=== PATIENT | male | born 1985 | race Caucasian/White ===

== ENCOUNTER 2018-05-10 19:33 | Inpatient (IN) | payer MEDICAID, OTHER ==
[~2018-05-10] VITALS: Ht 182.9 cm; Wt 92.0 kg
[2018-05-10] MEDS ORDERED: GABA-531 PO (20:59)
[2018-05-10] MEDS ORDERED: SERT50TA12 PO (20:59)
[2018-05-10] MEDS ORDERED: DIVA500T52 PO (20:59)
[2018-05-10] MEDS ORDERED: METH10 PO (20:59)
[2018-05-10] MEDS ORDERED: QUET25TA PO (20:59)
[2018-05-10] MEDS ORDERED: QUET200T PO (20:59)
[2018-05-10 21:07] LABS: ANION GAP 8 mmol/L (8-16); CALCIUM, TOTAL 9.1 mg/dL (8.8-10.5); CARBON DIOXIDE 30 mmol/L (22-29); CHLORIDE 106 mmol/L (98-107); CREATININE 1.12 mg/dL (0.60-1.30); GLOMERULAR FILTR. RATE CALC > 60 mL/min (>60); GLUCOSE,RANDOM 86 mg/dL (70-110); POTASSIUM 4.3 mmol/L (3.5-5.1); SODIUM SERUM 144 mmol/L (136-145); UREA NITROGEN, BLOOD 26 mg/dL (7-18)
[2018-05-10 21:13] LABS: ALANINE AMINOTRANSFERASE 26 U/L (12-78); ALBUMIN 3.9 g/dL (3.4-5.0); ALKALINE PHOSPHATASE 100 U/L (46-116); ASPARTATE AMINOTRANSFERASE 37 U/L (15-37); BILIRUBIN,TOTAL 0.4 mg/dL (0.1-1.0); TOTAL PROTEIN, SERUM 7.7 g/dL (6.4-8.2)
[2018-05-10 21:35] LABS: BASOPHILS % (AUTO) 0.6 % (0.0-2.0); EOSINOPHILS % (AUTO) 2.6 % (1.0-6.0); HEMATOCRIT 42.5 % (41-53); HEMOGLOBIN 14.6 g/dL (13.5-17.5); LYMPHOCYTES # (AUTO) 3.2 K/uL (1.0-4.8); LYMPHOCYTES % (AUTO) 37.6 % (22.0-44.0); MEAN CORPUSCULAR HGB CONC 34.4 G/dL (31.0-37.0); MEAN CORPUSCULAR VOLUME 96 fL (80-100); MONOCYTES # (AUTO) 0.9 K/uL (0.1-1.0); MONOCYTES % (AUTO) 10.4 % (2.0-9.0); NEUTROPHILS # (AUTO) 4.1 K/uL (1.8-7.7); NEUTROPHILS % (AUTO) 48.8 % (40.0-70.0); PLATELET COUNT (AUTO) 222 K/uL (150-450); RED BLOOD CELL COUNT(AUTO) 4.43 MIL/uL (4.50-5.90); RED CELL DISTRIBUTION WIDTH 13.2 % (11.5-14.5)
[2018-05-10] MEDS ORDERED: ZOLPIDEM TARTRATE 10 MG TABLET PO PRN (22:45)
[2018-05-10] MEDS ORDERED: HALOPERIDOL 5 MG TABLET PO PRN (22:45)
[2018-05-10 22:53] LABS: AMPHET/METH SCREEN,URINE POSITIVE (NEGATIVE); BARBITURATE SCREEN, URINE NEGATIVE (NEGATIVE); BENZODIAZEPINES SCREEN,URINE POSITIVE (NEGATIVE); CANNABINOID SCREEN,URINE NEGATIVE (NEGATIVE); COCAINE SCREEN,URINE NEGATIVE (NEGATIVE); METHADONE SCREEN, URINE POSITIVE (NEGATIVE); OPIATE SCREEN,URINE POSITIVE (NEGATIVE)
[2018-05-10 22:54] LABS: PHENCYCLIDINE SCREEN,URINE NEGATIVE (NEGATIVE)
[2018-05-11] VITALS (15 sets, daily range): BP systolic 100–120; BP diastolic 60–82
[2018-05-11] MEDS: LORazepam 2 MG TABLET PO PRN ×2 (01:41→09:35)
[2018-05-11 08:19] LABS: HEMOGLOBIN A1C 5.2 % (4.5-6.2)
[2018-05-11 08:37] LABS: CHOL/HDL RATIO 4.2 (4.2-7.3); FREE T4 (FREE THYROXINE) 0.73 ng/dL (0.76-1.46)
[2018-05-11 08:38] LABS: THYROID STIMULATING HORMONE 1.97 uIU/mL (0.36-3.74)
[2018-05-11] MEDS: NICOTINE 14 MG/24 HOUR PATCH TD SCH (09:58)
[2018-05-11] MEDS: DIVALPROEX SODIUM 500 MG ER TABLET PO SCH (09:58)
[2018-05-11] MEDS: METHADONE HCL 10 MG TABLET PO SCH (13:07)
[2018-05-11] MEDS ORDERED: MAG HYDROX/AL HYDROX/SIMETH ES 30 ML SUSPENSION UDCUP PO PRN (14:45)
[2018-05-11] MEDS ORDERED: TUBERCULIN, PURIFIED PROTEIN DERIVATIVE 5 TU/0.1 ML SYG ID ONE (14:45)
[2018-05-11] MEDS ORDERED: MAGNESIUM HYDROXIDE SUSPENSION 30 ML UDCUP PO PRN (14:45)
[2018-05-11] MEDS ORDERED: ACETAMINOPHEN 325 MG TABLET PO PRN (14:45)
[2018-05-11] MEDS ORDERED: LOPERAMIDE HCL 2 MG CAPSULE PO PRN ×2 (14:45)
[2018-05-11] MEDS ORDERED: HydrOXYzine PAMOATE 50 MG CAPSULE PO PRN (14:45)
[2018-05-11] MEDS ORDERED: GuaiFENesin/D-METHORPHAN [SUGAR-FREE] 200-20MG/10 ML SYRUP UDCUP PO PRN (14:45)
[2018-05-11] MEDS ORDERED: OLANZapine 5 MG RAPDIS TABLET PO PRN (14:45)
[2018-05-11] MEDS ORDERED: DIAZEPAM 10 MG TABLET PO PRN (14:45)
[2018-05-11] MEDS ORDERED: PROMETHAZINE HCL 25 MG TABLET PO PRN (14:45)
[2018-05-11] MEDS ORDERED: CYANOCOBALAMIN 1,000 MCG/ML VIAL IM ONE (14:45)
[2018-05-11] MEDS ORDERED: DIAZEPAM 10 MG TABLET PO ONE (15:15)
[2018-05-11] MEDS: ACAMPROSATE CALCIUM 333 MG DR TABLET PO SCH (16:10)
[2018-05-11] MEDS: THIAMINE HCL 100 MG TABLET PO SCH (16:11)
[2018-05-11] MEDS: OLANZapine 5 MG RAPDIS TABLET PO SCH (20:34)
[2018-05-12] VITALS (7 sets, daily range): BP systolic 104–120; BP diastolic 63–76
[2018-05-12] MEDS ORDERED: DIAZEPAM 10 MG TABLET PO PRN (07:00)
[2018-05-12] MEDS: FOLIC ACID 1 MG TABLET PO SCH (09:23)
[2018-05-12] MEDS: DIVALPROEX SODIUM 500 MG ER TABLET PO SCH (09:23)
[2018-05-12] MEDS: MULTIVITAMINS WITH MINERALS, THERAPEUTIC TABLET PO SCH (09:23)
[2018-05-12] MEDS: ACAMPROSATE CALCIUM 333 MG DR TABLET PO SCH ×3 (09:23→16:59)
[2018-05-12] MEDS: THIAMINE HCL 100 MG TABLET PO SCH ×2 (09:23→16:59)
[2018-05-12] MEDS: METHADONE HCL 10 MG TABLET PO SCH (09:24)
[2018-05-12] MEDS: NICOTINE 14 MG/24 HOUR PATCH TD SCH (09:24)
[2018-05-12] MEDS: DIAZEPAM 10 MG TABLET PO SCH ×4 (09:25→20:27)
[2018-05-12] MEDS: OLANZapine 5 MG RAPDIS TABLET PO SCH (20:27)
[2018-05-13 05:40] VITALS: BP 104/60
[2018-05-13 08:35] VITALS: BP 116/77
[2018-05-13 08:36] VITALS: BP 116/77
[2018-05-13] MEDS: THIAMINE HCL 100 MG TABLET PO SCH (09:09)
[2018-05-13] MEDS: MULTIVITAMINS WITH MINERALS, THERAPEUTIC TABLET PO SCH (09:09)
[2018-05-13] MEDS: DIAZEPAM 10 MG TABLET PO SCH ×2 (09:09→12:35)
[2018-05-13] MEDS: FOLIC ACID 1 MG TABLET PO SCH (09:09)
[2018-05-13] MEDS: DIVALPROEX SODIUM 500 MG ER TABLET PO SCH (09:09)
[2018-05-13] MEDS: METHADONE HCL 10 MG TABLET PO SCH (09:09)
[2018-05-13] MEDS: ACAMPROSATE CALCIUM 333 MG DR TABLET PO SCH ×2 (09:10→12:35)
[2018-05-13] MEDS: NICOTINE 14 MG/24 HOUR PATCH TD SCH (09:10)
[2018-05-13] MEDS ORDERED: OLAN5TAB30 PO (15:15)
[2018-05-13] MEDS ORDERED: ACAM333T7 PO ×2 (15:15→15:20)
[2018-05-13] MEDS ORDERED: DIVA500T52 PO (15:15)
[2018-05-13] MEDS ORDERED: OLAN5TAB40 PO (15:20)
[2018-05-14] MEDS ORDERED: DIAZEPAM 5 MG TABLET PO PRN (07:00)
[2018-05-14] MEDS ORDERED: DIAZEPAM 5 MG TABLET PO SCH (09:00)
[2018-05-15] MEDS ORDERED: DIAZEPAM 5 MG TABLET PO PRN (07:00)
== END 2018-05-13 16:05 | disposition home or self-care (01) | DRG 753 ==
LOC: EMS 19:34 → B2S 22:00
PROVIDERS: ADMIT Psychiatry & Neurology Psychiatry; ATTEND Psychiatry & Neurology Psychiatry
DX: F31.60 Bipolar disorder, current episode mixed, unspecified (principal); F20.0 Paranoid schizophrenia; R56.9 Unspecified convulsions; R45.851 Suicidal ideations; F17.200 Nicotine dependence, unspecified, uncomplicated; F15.90 Other stimulant use, unspecified, uncomplicated; F11.90 Opioid use, unspecified, uncomplicated; F10.20 Alcohol dependence, uncomplicated; E78.5 Hyperlipidemia, unspecified; B19.20 Unspecified viral hepatitis C without hepatic coma; Z79.899 Other long term (current) drug therapy; Z88.1 Allergy status to other antibiotic agents
CPT/HCPCS: 83036; 84439; 84443; 87081; 99285; 99406; G0480; J3420

== ENCOUNTER 2018-09-03 15:35 | Inpatient (IN) | payer MEDICAID, OTHER ==
[~2018-09-03] VITALS: Ht 182.9 cm; Wt 105.3 kg
[~2018-09-03 15:35] MED LIST: ACAM333T7 PO; DIVA500T52 PO; OLAN5TAB30 PO; OLAN5TAB40 PO
[2018-09-03] MEDS ORDERED: METH10 PO (17:01)
[2018-09-03] MEDS ORDERED: QUET200T PO (17:01)
[2018-09-03 17:15] LABS: BASOPHILS % (AUTO) 0.8 % (0.0-2.0); HEMATOCRIT 40.8 % (41-53); HEMOGLOBIN 14.1 g/dL (13.5-17.5); LYMPHOCYTES # (AUTO) 2.9 K/uL (1.0-4.8); LYMPHOCYTES % (AUTO) 36.2 % (22.0-44.0); MEAN CORPUSCULAR HGB CONC 34.5 G/dL (31.0-37.0); MEAN CORPUSCULAR VOLUME 96 fL (80-100); MONOCYTES # (AUTO) 0.5 K/uL (0.1-1.0); MONOCYTES % (AUTO) 6.9 % (2.0-9.0); NEUTROPHILS # (AUTO) 4.4 K/uL (1.8-7.7); NEUTROPHILS % (AUTO) 55.1 % (40.0-70.0); PLATELET COUNT (AUTO) 255 K/uL (150-450); RED BLOOD CELL COUNT(AUTO) 4.27 MIL/uL (4.50-5.90)
[2018-09-03 17:47] LABS: ANION GAP 7 mmol/L (8-16); CALCIUM, TOTAL 9.4 mg/dL (8.8-10.5); CARBON DIOXIDE 28 mmol/L (22-29); CHLORIDE 102 mmol/L (98-107); GLOMERULAR FILTR. RATE CALC > 60 mL/min (>60); GLUCOSE,RANDOM 83 mg/dL (70-110); POTASSIUM 4.2 mmol/L (3.5-5.1); SODIUM SERUM 137 mmol/L (136-145); UREA NITROGEN, BLOOD 16 mg/dL (7-18)
[2018-09-03 17:53] LABS: ALANINE AMINOTRANSFERASE 25 U/L (12-78); ALKALINE PHOSPHATASE 84 U/L (46-116); ASPARTATE AMINOTRANSFERASE 24 U/L (15-37); BILIRUBIN,TOTAL 0.2 mg/dL (0.1-1.0); TOTAL PROTEIN, SERUM 7.2 g/dL (6.4-8.2)
[2018-09-03] MEDS: QUEtiapine FUMARATE 100 MG TABLET PO PRN (20:22)
[2018-09-03] MEDS: LORazepam 2 MG TABLET PO PRN (20:22)
[2018-09-03 20:27] VITALS: BP 138/76
[2018-09-03] MEDS ORDERED: LOPERAMIDE HCL 2 MG CAPSULE PO PRN (23:00)
[2018-09-03] MEDS ORDERED: PETROLATUM,WHITE 71 GM JELLY TP PRN (23:00)
[2018-09-03] MEDS ORDERED: MAG HYDROX/AL HYDROX/SIMETH ES 30 ML SUSPENSION UDCUP PO PRN (23:00)
[2018-09-03] MEDS ORDERED: CloNIDine HCL 0.1 MG TABLET PO PRN (23:00)
[2018-09-03] MEDS ORDERED: ACETAMINOPHEN 325 MG TABLET PO PRN (23:00)
[2018-09-03] MEDS ORDERED: ONDANSETRON HCL 4 MG TABLET PO PRN (23:00)
[2018-09-03] MEDS ORDERED: IBUPROFEN 400 MG TABLET PO PRN (23:00)
[2018-09-03] MEDS ORDERED: DOCUSATE SODIUM 100 MG CAPSULE PO PRN (23:00)
[2018-09-03] MEDS ORDERED: GuaiFENesin/D-METHORPHAN [SUGAR-FREE] 200-20MG/10 ML SYRUP UDCUP PO PRN (23:00)
[2018-09-03] MEDS ORDERED: ALBUTEROL SULFATE HFA 90 MCG/PUFF 8 GM INHALER IH PRN (23:00)
[2018-09-03] MEDS ORDERED: MAGNESIUM HYDROXIDE SUSPENSION 30 ML UDCUP PO PRN (23:00)
[2018-09-04 06:43] LABS: BASOPHILS % (AUTO) 0.6 % (0.0-2.0); EOSINOPHILS % (AUTO) 1.8 % (1.0-6.0); HEMATOCRIT 38.8 % (41-53); HEMOGLOBIN 13.5 g/dL (13.5-17.5); LYMPHOCYTES # (AUTO) 2.6 K/uL (1.0-4.8); LYMPHOCYTES % (AUTO) 44.2 % (22.0-44.0); MEAN CORPUSCULAR HEMOGLOBIN 33.1 pg (26.0-34.0); MEAN CORPUSCULAR HGB CONC 34.7 G/dL (31.0-37.0); MEAN CORPUSCULAR VOLUME 95 fL (80-100); MONOCYTES # (AUTO) 0.5 K/uL (0.1-1.0); MONOCYTES % (AUTO) 8.2 % (2.0-9.0); NEUTROPHILS # (AUTO) 2.7 K/uL (1.8-7.7); NEUTROPHILS % (AUTO) 45.2 % (40.0-70.0); PLATELET COUNT (AUTO) 242 K/uL (150-450); RED BLOOD CELL COUNT(AUTO) 4.07 MIL/uL (4.50-5.90); RED CELL DISTRIBUTION WIDTH 12.6 % (11.5-14.5)
[2018-09-04 07:05] LABS: ALANINE AMINOTRANSFERASE 24 U/L (12-78); ALBUMIN 3.5 g/dL (3.4-5.0); ALKALINE PHOSPHATASE 75 U/L (46-116); ANION GAP 5 mmol/L (8-16); ASPARTATE AMINOTRANSFERASE 19 U/L (15-37); BILIRUBIN,TOTAL 0.3 mg/dL (0.1-1.0); CALCIUM, TOTAL 9.3 mg/dL (8.8-10.5); CARBON DIOXIDE 31 mmol/L (22-29); CHLORIDE 104 mmol/L (98-107); CHOL/HDL RATIO 4.1 (4.2-7.3); CHOLESTEROL 198 mg/dL (131-200); GLOMERULAR FILTR. RATE CALC > 60 mL/min (>60); GLUCOSE,RANDOM 97 mg/dL (70-110); HDL CHOLESTEROL 48 mg/dL (40-60); LDL CHOL (CALC.) 116 mg/dL (0-130); SODIUM SERUM 140 mmol/L (136-145); THYROID STIMULATING HORMONE 0.72 uIU/mL (0.36-3.74); TOTAL PROTEIN, SERUM 6.4 g/dL (6.4-8.2); TRIGLYCERIDES 170 mg/dL (15-150); UREA NITROGEN, BLOOD 27 mg/dL (7-18)
[2018-09-04 07:28] LABS: HEMOGLOBIN A1C 5.3 % (4.5-6.2)
[2018-09-04 08:30] VITALS: BP 96/64
[2018-09-04] MEDS ORDERED: METHADONE HCL 10 MG TABLET PO SCH (09:00)
[2018-09-04] MEDS: LORazepam 2 MG TABLET PO PRN ×3 (11:49→21:04)
[2018-09-04] MEDS ORDERED: METHADONE HCL 10 MG TABLET PO ONE (16:15)
[2018-09-04] MEDS: GABAPENTIN 300 MG CAPSULE PO SCH (16:30)
[2018-09-04] MEDS: QUEtiapine FUMARATE 100 MG TABLET PO PRN (16:30)
[2018-09-04 18:05] VITALS: BP 101/71
[2018-09-04] MEDS: QUEtiapine FUMARATE 200 MG TABLET PO SCH (20:31)
[2018-09-04] MEDS: ZOLPIDEM TARTRATE 10 MG TABLET PO PRN (20:31)
[2018-09-05 08:30] VITALS: BP 134/79
[2018-09-05] MEDS: GABAPENTIN 300 MG CAPSULE PO SCH ×3 (09:24→16:26)
[2018-09-05] MEDS: QUEtiapine FUMARATE 200 MG TABLET PO SCH ×2 (09:24→21:13)
[2018-09-05] MEDS: METHADONE HCL 10 MG TABLET PO SCH (09:24)
[2018-09-05] MEDS: SERTRALINE HCL 50 MG TABLET PO SCH (09:26)
[2018-09-05] MEDS: LORazepam 2 MG TABLET PO PRN ×3 (09:26→18:07)
[2018-09-05] MEDS: NICOTINE 14 MG/24 HOUR PATCH TD PRN (15:04)
[2018-09-05 16:52] VITALS: BP 132/92
[2018-09-05] MEDS: ZOLPIDEM TARTRATE 10 MG TABLET PO PRN (21:50)
[2018-09-05] MEDS: QUEtiapine FUMARATE 100 MG TABLET PO PRN (21:50)
[2018-09-06] MEDS: METHADONE HCL 10 MG TABLET PO SCH (09:31)
[2018-09-06] MEDS: SERTRALINE HCL 50 MG TABLET PO SCH (09:31)
[2018-09-06] MEDS: GABAPENTIN 300 MG CAPSULE PO SCH ×3 (09:32→17:50)
[2018-09-06] MEDS: QUEtiapine FUMARATE 200 MG TABLET PO SCH ×2 (09:32→22:00)
[2018-09-06 09:33] VITALS: BP 110/64
[2018-09-06 11:18] VITALS: BP 137/77
[2018-09-06] MEDS: LORazepam 2 MG TABLET PO PRN ×2 (11:21→17:48)
[2018-09-06] MEDS: NICOTINE 14 MG/24 HOUR PATCH TD PRN (12:14)
[2018-09-06] MEDS: QUEtiapine FUMARATE 100 MG TABLET PO PRN (14:22)
[2018-09-06 18:30] VITALS: BP 115/69
[2018-09-07] MEDS: LORazepam 2 MG TABLET PO PRN ×2 (04:12→10:39)
[2018-09-07] MEDS: SERTRALINE HCL 50 MG TABLET PO SCH (09:48)
[2018-09-07] MEDS: QUEtiapine FUMARATE 200 MG TABLET PO SCH (09:48)
[2018-09-07] MEDS: METHADONE HCL 10 MG TABLET PO SCH (09:48)
[2018-09-07] MEDS: GABAPENTIN 300 MG CAPSULE PO SCH ×2 (09:48→13:55)
[2018-09-07] MEDS: NICOTINE 14 MG/24 HOUR PATCH TD PRN (09:54)
[2018-09-07 10:14] VITALS: BP 126/75
[2018-09-07] MEDS ORDERED: QUET200T PO (10:27)
[2018-09-07] MEDS ORDERED: GABA-531 PO (10:27)
[2018-09-07] MEDS ORDERED: SERT50TA12 PO (10:27)
== END 2018-09-07 14:20 | disposition home or self-care (01) | DRG 751 ==
LOC: EMS 15:36 → 3EI 18:30
PROVIDERS: ADMIT Psychiatry & Neurology Psychiatry; ATTEND Psychiatry & Neurology Psychiatry
DX: F33.2 Major depressive disorder, recurrent severe without psychotic features (principal); R45.851 Suicidal ideations; F11.20 Opioid dependence, uncomplicated; F41.9 Anxiety disorder, unspecified; Z28.21 Immunization not carried out because of patient refusal; Z88.1 Allergy status to other antibiotic agents; F60.3 Borderline personality disorder; B19.20 Unspecified viral hepatitis C without hepatic coma; E78.5 Hyperlipidemia, unspecified; F15.90 Other stimulant use, unspecified, uncomplicated; Z91.5 Personal history of self-harm
CPT/HCPCS: 83036; 84443; G0480

== ENCOUNTER 2018-09-09 16:36 | Inpatient (IN) | payer MEDICAID, OTHER ==
[~2018-09-09] VITALS: Ht 182.9 cm; Wt 106.3 kg
[~2018-09-09 16:36] MED LIST changes: -ACAM333T7 PO; -DIVA500T52 PO; +GABA-531 PO; -OLAN5TAB30 PO; -OLAN5TAB40 PO; +QUET200T PO; +SERT50TA12 PO
[2018-09-09 17:42] LABS: EOSINOPHILS % (AUTO) 1.7 % (1.0-6.0); HEMATOCRIT 40.3 % (41-53); HEMOGLOBIN 13.8 g/dL (13.5-17.5); LYMPHOCYTES # (AUTO) 2.5 K/uL (1.0-4.8); MEAN CORPUSCULAR HEMOGLOBIN 32.7 pg (26.0-34.0); MEAN CORPUSCULAR HGB CONC 34.3 G/dL (31.0-37.0); MEAN CORPUSCULAR VOLUME 95 fL (80-100); MONOCYTES # (AUTO) 0.5 K/uL (0.1-1.0); MONOCYTES % (AUTO) 8.5 % (2.0-9.0); NEUTROPHILS # (AUTO) 2.6 K/uL (1.8-7.7); NEUTROPHILS % (AUTO) 44.8 % (40.0-70.0); PLATELET COUNT (AUTO) 223 K/uL (150-450); RED BLOOD CELL COUNT(AUTO) 4.23 MIL/uL (4.50-5.90); RED CELL DISTRIBUTION WIDTH 12.7 % (11.5-14.5)
[2018-09-09 17:53] LABS: ANION GAP 10 mmol/L (8-16); CALCIUM, TOTAL 9.4 mg/dL (8.8-10.5); CARBON DIOXIDE 29 mmol/L (22-29); CHLORIDE 104 mmol/L (98-107); CREATININE 0.91 mg/dL (0.60-1.30); GLOMERULAR FILTR. RATE CALC > 60 mL/min (>60); GLUCOSE,RANDOM 83 mg/dL (70-110); POTASSIUM 4.5 mmol/L (3.5-5.1); SODIUM SERUM 143 mmol/L (136-145); UREA NITROGEN, BLOOD 22 mg/dL (7-18)
[2018-09-09 18:00] LABS: ALANINE AMINOTRANSFERASE 23 U/L (12-78); ALBUMIN 3.8 g/dL (3.4-5.0); ALKALINE PHOSPHATASE 102 U/L (46-116); ASPARTATE AMINOTRANSFERASE 20 U/L (15-37); BILIRUBIN,TOTAL 0.2 mg/dL (0.1-1.0)
[2018-09-09 21:53] LABS: AMPHET/METH SCREEN,URINE NEGATIVE (NEGATIVE); BARBITURATE SCREEN, URINE NEGATIVE (NEGATIVE); BENZODIAZEPINES SCREEN,URINE POSITIVE (NEGATIVE); CANNABINOID SCREEN,URINE NEGATIVE (NEGATIVE); COCAINE SCREEN,URINE NEGATIVE (NEGATIVE); METHADONE SCREEN, URINE POSITIVE (NEGATIVE); OPIATE SCREEN,URINE NEGATIVE (NEGATIVE)
[2018-09-09 22:04] LABS: PHENCYCLIDINE SCREEN,URINE NEGATIVE (NEGATIVE)
[2018-09-10] MEDS ORDERED: QUEtiapine FUMARATE 100 MG TABLET PO ONE (07:15)
[2018-09-10] MEDS ORDERED: METHADONE HCL 10 MG TABLET PO ONE (07:15)
[2018-09-10] MEDS ORDERED: SERTRALINE HCL 100 MG TABLET PO ONE (07:15)
[2018-09-10] MEDS ORDERED: GABAPENTIN 300 MG CAPSULE PO ONE (07:15)
[2018-09-10] MEDS: METHADONE HCL 10 MG TABLET PO SCH (08:18)
[2018-09-10] MEDS: LORazepam 2 MG TABLET PO PRN ×3 (10:05→18:38)
[2018-09-10] MEDS: HALOPERIDOL 5 MG TABLET PO PRN (12:28)
[2018-09-10 13:43] VITALS: BP 137/86
[2018-09-10] MEDS: GABAPENTIN 300 MG CAPSULE PO SCH ×2 (14:37→16:42)
[2018-09-10] MEDS ORDERED: NICOTINE 14 MG/24 HOUR PATCH TD PRN (14:45)
[2018-09-10] MEDS ORDERED: ACETAMINOPHEN 325 MG TABLET PO PRN (14:45)
[2018-09-10] MEDS ORDERED: IBUPROFEN 400 MG TABLET PO PRN (14:45)
[2018-09-10] MEDS ORDERED: MAG HYDROX/AL HYDROX/SIMETH ES 30 ML SUSPENSION UDCUP PO PRN (14:45)
[2018-09-10] MEDS ORDERED: CloNIDine HCL 0.1 MG TABLET PO PRN (14:45)
[2018-09-10] MEDS ORDERED: MAGNESIUM HYDROXIDE SUSPENSION 30 ML UDCUP PO PRN (14:45)
[2018-09-10] MEDS ORDERED: PETROLATUM,WHITE 71 GM JELLY TP PRN (14:45)
[2018-09-10] MEDS ORDERED: ONDANSETRON HCL 4 MG TABLET PO PRN (14:45)
[2018-09-10] MEDS ORDERED: GuaiFENesin/D-METHORPHAN [SUGAR-FREE] 200-20MG/10 ML SYRUP UDCUP PO PRN (14:45)
[2018-09-10] MEDS ORDERED: DOCUSATE SODIUM 100 MG CAPSULE PO PRN (14:45)
[2018-09-10] MEDS ORDERED: ALBUTEROL SULFATE HFA 90 MCG/PUFF 8 GM INHALER IH PRN (14:45)
[2018-09-10 16:09] VITALS: BP 110/81
[2018-09-10] MEDS: BACITRACIN 28.4 GM OINTMENT TP SCH (16:44)
[2018-09-10] MEDS: HYDROCORTISONE 1% 30 GM OINTMENT TP SCH (16:44)
[2018-09-10] MEDS: QUEtiapine FUMARATE 200 MG TABLET PO SCH (20:12)
[2018-09-11 05:49] VITALS: BP 117/83
[2018-09-11 07:52] LABS: BASOPHILS % (AUTO) 0.5 % (0.0-2.0); EOSINOPHILS % (AUTO) 1.6 % (1.0-6.0); HEMATOCRIT 39.7 % (41-53); HEMOGLOBIN 13.7 g/dL (13.5-17.5); LYMPHOCYTES # (AUTO) 2.2 K/uL (1.0-4.8); LYMPHOCYTES % (AUTO) 48.5 % (22.0-44.0); MEAN CORPUSCULAR HEMOGLOBIN 33.2 pg (26.0-34.0); MEAN CORPUSCULAR HGB CONC 34.4 G/dL (31.0-37.0); MEAN CORPUSCULAR VOLUME 97 fL (80-100); MONOCYTES # (AUTO) 0.4 K/uL (0.1-1.0); MONOCYTES % (AUTO) 9.6 % (2.0-9.0); NEUTROPHILS # (AUTO) 1.8 K/uL (1.8-7.7); NEUTROPHILS % (AUTO) 39.8 % (40.0-70.0); PLATELET COUNT (AUTO) 214 K/uL (150-450); RED BLOOD CELL COUNT(AUTO) 4.12 MIL/uL (4.50-5.90); RED CELL DISTRIBUTION WIDTH 12.6 % (11.5-14.5)
[2018-09-11 08:09] LABS: HEMOGLOBIN A1C 5.3 % (4.5-6.2)
[2018-09-11 08:15] LABS: ALANINE AMINOTRANSFERASE 22 U/L (12-78); ALBUMIN 3.3 g/dL (3.4-5.0); ALKALINE PHOSPHATASE 74 U/L (46-116); ANION GAP 7 mmol/L (8-16); ASPARTATE AMINOTRANSFERASE 15 U/L (15-37); BILIRUBIN,TOTAL 0.2 mg/dL (0.1-1.0); CALCIUM, TOTAL 9.1 mg/dL (8.8-10.5); CARBON DIOXIDE 29 mmol/L (22-29); CHLORIDE 105 mmol/L (98-107); CHOL/HDL RATIO 4.8 (4.2-7.3); CREATININE 0.84 mg/dL (0.60-1.30); GLOMERULAR FILTR. RATE CALC > 60 mL/min (>60); GLUCOSE,RANDOM 82 mg/dL (70-110); SODIUM SERUM 141 mmol/L (136-145); THYROID STIMULATING HORMONE 1.42 uIU/mL (0.36-3.74); TOTAL PROTEIN, SERUM 6.4 g/dL (6.4-8.2); UREA NITROGEN, BLOOD 23 mg/dL (7-18)
[2018-09-11] MEDS: QUEtiapine FUMARATE 200 MG TABLET PO SCH ×2 (08:40→20:15)
[2018-09-11] MEDS: SERTRALINE HCL 100 MG TABLET PO SCH (08:40)
[2018-09-11] MEDS: GABAPENTIN 300 MG CAPSULE PO SCH ×3 (08:41→16:43)
[2018-09-11] MEDS: METHADONE HCL 10 MG TABLET PO SCH (08:42)
[2018-09-11 08:51] VITALS: BP 110/62
[2018-09-11] MEDS: HYDROCORTISONE 1% 30 GM OINTMENT TP SCH ×2 (09:00→17:00)
[2018-09-11] MEDS: BACITRACIN 28.4 GM OINTMENT TP SCH ×2 (09:00→17:00)
[2018-09-11] MEDS: LORazepam 2 MG TABLET PO PRN ×3 (09:43→20:14)
[2018-09-11] MEDS: NICOTINE 14 MG/24 HOUR PATCH TD SCH (09:45)
[2018-09-11] MEDS: HALOPERIDOL 5 MG TABLET PO PRN (14:22)
[2018-09-11 16:28] VITALS: BP 112/96
[2018-09-11] MEDS: ZOLPIDEM TARTRATE 10 MG TABLET PO PRN (21:38)
[2018-09-12 02:39] VITALS: BP 110/79
[2018-09-12 08:35] VITALS: BP 126/61
[2018-09-12] MEDS: NICOTINE 14 MG/24 HOUR PATCH TD SCH ×2 (09:00→14:38)
[2018-09-12] MEDS: QUEtiapine FUMARATE 200 MG TABLET PO SCH ×2 (09:53→20:12)
[2018-09-12] MEDS: GABAPENTIN 300 MG CAPSULE PO SCH ×3 (09:53→16:38)
[2018-09-12] MEDS: SERTRALINE HCL 100 MG TABLET PO SCH (09:53)
[2018-09-12] MEDS: METHADONE HCL 10 MG TABLET PO SCH (09:54)
[2018-09-12] MEDS: HYDROCORTISONE 1% 30 GM OINTMENT TP SCH ×2 (09:57→16:38)
[2018-09-12] MEDS: BACITRACIN 28.4 GM OINTMENT TP SCH ×2 (09:58→16:38)
[2018-09-12] MEDS: LORazepam 2 MG TABLET PO PRN ×3 (10:24→18:30)
[2018-09-12] MEDS: HALOPERIDOL 5 MG TABLET PO PRN (16:14)
[2018-09-12 16:21] VITALS: BP 118/65
[2018-09-12] MEDS ORDERED: BISACODYL 5 MG EC TABLET PO PRN (18:30)
[2018-09-12] MEDS ORDERED: HYDROCORTISONE 1% 30 GM OINTMENT TP PRN (18:30)
[2018-09-13 01:57] VITALS: BP 108/70
[2018-09-13 08:15] VITALS: BP 110/61
[2018-09-13] MEDS: NICOTINE 14 MG/24 HOUR PATCH TD SCH (08:52)
[2018-09-13] MEDS: METHADONE HCL 10 MG TABLET PO SCH (08:52)
[2018-09-13] MEDS: LORazepam 2 MG TABLET PO PRN ×3 (08:53→17:18)
[2018-09-13] MEDS: GABAPENTIN 300 MG CAPSULE PO SCH ×3 (08:53→16:28)
[2018-09-13] MEDS: QUEtiapine FUMARATE 200 MG TABLET PO SCH ×2 (08:53→20:43)
[2018-09-13] MEDS: SERTRALINE HCL 100 MG TABLET PO SCH (08:53)
[2018-09-13] MEDS ORDERED: METHADONE HCL 10 MG TABLET PO SCH (09:00)
[2018-09-13] MEDS: HYDROCORTISONE 1% 30 GM OINTMENT TP SCH ×2 (09:37→16:28)
[2018-09-13] MEDS: BACITRACIN 28.4 GM OINTMENT TP SCH ×2 (09:38→16:28)
[2018-09-13 16:10] VITALS: BP 138/74
[2018-09-13] MEDS: HALOPERIDOL 5 MG TABLET PO PRN (16:28)
[2018-09-13] MEDS: ZOLPIDEM TARTRATE 10 MG TABLET PO PRN (21:00)
[2018-09-14 01:02] VITALS: BP 103/69
[2018-09-14 08:00] VITALS: BP 104/58
[2018-09-14] MEDS: QUEtiapine FUMARATE 200 MG TABLET PO SCH ×2 (09:02→20:34)
[2018-09-14] MEDS: METHADONE HCL 10 MG TABLET PO SCH (09:03)
[2018-09-14] MEDS: GABAPENTIN 300 MG CAPSULE PO SCH ×3 (09:03→16:19)
[2018-09-14] MEDS: SERTRALINE HCL 100 MG TABLET PO SCH (09:03)
[2018-09-14] MEDS: NICOTINE 14 MG/24 HOUR PATCH TD SCH (10:07)
[2018-09-14] MEDS: HYDROCORTISONE 1% 30 GM OINTMENT TP SCH ×2 (10:11→16:23)
[2018-09-14] MEDS: BACITRACIN 28.4 GM OINTMENT TP SCH ×2 (10:11→16:23)
[2018-09-14 11:17] VITALS: BP 112/76
[2018-09-14] MEDS: LORazepam 2 MG TABLET PO PRN ×2 (11:36→15:50)
[2018-09-14] MEDS: HALOPERIDOL 5 MG TABLET PO PRN (14:25)
[2018-09-14 16:26] VITALS: BP 114/60
[2018-09-15 03:07] VITALS: BP 116/73
[2018-09-15] MEDS: METHADONE HCL 10 MG TABLET PO SCH (08:10)
[2018-09-15] MEDS: QUEtiapine FUMARATE 200 MG TABLET PO SCH ×2 (08:10→20:19)
[2018-09-15] MEDS: GABAPENTIN 300 MG CAPSULE PO SCH ×3 (08:10→16:08)
[2018-09-15] MEDS: NICOTINE 14 MG/24 HOUR PATCH TD SCH (08:11)
[2018-09-15] MEDS: BACITRACIN 28.4 GM OINTMENT TP SCH ×2 (08:11→16:54)
[2018-09-15] MEDS: SERTRALINE HCL 100 MG TABLET PO SCH (08:11)
[2018-09-15 08:12] VITALS: BP 116/63
[2018-09-15] MEDS: HYDROCORTISONE 1% 30 GM OINTMENT TP SCH ×2 (08:14→16:54)
[2018-09-15] MEDS: LORazepam 2 MG TABLET PO PRN ×2 (10:22→14:28)
[2018-09-15] MEDS: HALOPERIDOL 5 MG TABLET PO PRN ×2 (12:41→12:45)
[2018-09-15 16:20] VITALS: BP 125/70
[2018-09-16 01:20] VITALS: BP 121/68
[2018-09-16] MEDS: LORazepam 2 MG TABLET PO PRN ×4 (05:06→17:29)
[2018-09-16 08:11] VITALS: BP 120/82
[2018-09-16] MEDS: BACITRACIN 28.4 GM OINTMENT TP SCH ×2 (08:59→17:01)
[2018-09-16] MEDS: HYDROCORTISONE 1% 30 GM OINTMENT TP SCH ×2 (08:59→17:01)
[2018-09-16] MEDS: NICOTINE 14 MG/24 HOUR PATCH TD SCH (08:59)
[2018-09-16] MEDS: SERTRALINE HCL 100 MG TABLET PO SCH (08:59)
[2018-09-16] MEDS: GABAPENTIN 300 MG CAPSULE PO SCH ×3 (09:00→17:00)
[2018-09-16] MEDS: QUEtiapine FUMARATE 200 MG TABLET PO SCH ×2 (09:00→20:43)
[2018-09-16] MEDS: HALOPERIDOL 5 MG TABLET PO PRN ×3 (09:01→17:29)
[2018-09-16] MEDS: METHADONE HCL 10 MG TABLET PO SCH (09:01)
[2018-09-16 16:19] VITALS: BP 112/79
[2018-09-17 02:20] VITALS: BP 116/66
[2018-09-17] MEDS: METHADONE HCL 10 MG TABLET PO SCH (08:22)
[2018-09-17] MEDS: GABAPENTIN 300 MG CAPSULE PO SCH ×3 (08:22→16:08)
[2018-09-17] MEDS: SERTRALINE HCL 100 MG TABLET PO SCH (08:22)
[2018-09-17] MEDS: QUEtiapine FUMARATE 200 MG TABLET PO SCH ×2 (08:22→20:16)
[2018-09-17] MEDS: HYDROCORTISONE 1% 30 GM OINTMENT TP SCH ×2 (08:23→16:12)
[2018-09-17] MEDS: NICOTINE 14 MG/24 HOUR PATCH TD SCH (08:23)
[2018-09-17] MEDS: BACITRACIN 28.4 GM OINTMENT TP SCH ×2 (08:23→16:12)
[2018-09-17 09:06] VITALS: BP 115/88
[2018-09-17] MEDS: LORazepam 2 MG TABLET PO PRN ×3 (09:12→18:17)
[2018-09-17 16:06] VITALS: BP 120/79
[2018-09-17] MEDS: ZOLPIDEM TARTRATE 10 MG TABLET PO PRN ×2 (20:50→22:29)
[2018-09-18 03:15] VITALS: BP 121/82
[2018-09-18 08:17] VITALS: BP 117/68
[2018-09-18] MEDS: QUEtiapine FUMARATE 200 MG TABLET PO SCH ×2 (08:50→20:52)
[2018-09-18] MEDS: SERTRALINE HCL 100 MG TABLET PO SCH (08:50)
[2018-09-18] MEDS: METHADONE HCL 10 MG TABLET PO SCH (08:50)
[2018-09-18] MEDS: GABAPENTIN 300 MG CAPSULE PO SCH ×3 (08:50→17:22)
[2018-09-18] MEDS: NICOTINE 14 MG/24 HOUR PATCH TD SCH (08:50)
[2018-09-18] MEDS: HYDROCORTISONE 1% 30 GM OINTMENT TP SCH ×2 (08:54→17:21)
[2018-09-18] MEDS: BACITRACIN 28.4 GM OINTMENT TP SCH ×2 (08:55→17:21)
[2018-09-18] MEDS: HALOPERIDOL 5 MG TABLET PO PRN ×2 (10:29→14:30)
[2018-09-18] MEDS: LORazepam 2 MG TABLET PO PRN ×3 (10:29→22:41)
[2018-09-18 16:36] VITALS: BP 135/89
[2018-09-19 00:44] VITALS: BP 115/66
[2018-09-19] MEDS: LORazepam 2 MG TABLET PO PRN ×4 (03:10→19:45)
[2018-09-19] MEDS: BACITRACIN 28.4 GM OINTMENT TP SCH ×2 (08:19→16:09)
[2018-09-19] MEDS: HYDROCORTISONE 1% 30 GM OINTMENT TP SCH ×2 (08:20→16:09)
[2018-09-19] MEDS: NICOTINE 14 MG/24 HOUR PATCH TD SCH (08:22)
[2018-09-19] MEDS: GABAPENTIN 300 MG CAPSULE PO SCH ×3 (08:22→16:09)
[2018-09-19] MEDS: SERTRALINE HCL 100 MG TABLET PO SCH (08:23)
[2018-09-19] MEDS: QUEtiapine FUMARATE 200 MG TABLET PO SCH ×2 (08:23→20:12)
[2018-09-19 08:27] VITALS: BP 116/75
[2018-09-19] MEDS: METHADONE HCL 10 MG TABLET PO SCH (08:48)
[2018-09-19] MEDS: HALOPERIDOL 5 MG TABLET PO PRN ×2 (12:28→16:44)
[2018-09-19] MEDS: LOPERAMIDE HCL 2 MG CAPSULE PO PRN ×2 (14:34→19:45)
[2018-09-19 16:42] VITALS: BP 124/78
[2018-09-20 04:38] VITALS: BP 117/77
[2018-09-20 08:12] VITALS: BP 112/75
[2018-09-20] MEDS: GABAPENTIN 300 MG CAPSULE PO SCH ×3 (09:06→16:42)
[2018-09-20] MEDS: METHADONE HCL 10 MG TABLET PO SCH (09:13)
[2018-09-20] MEDS: NICOTINE 14 MG/24 HOUR PATCH TD SCH (09:13)
[2018-09-20] MEDS: SERTRALINE HCL 100 MG TABLET PO SCH (09:13)
[2018-09-20] MEDS: HYDROCORTISONE 1% 30 GM OINTMENT TP SCH ×2 (09:13→20:15)
[2018-09-20] MEDS: QUEtiapine FUMARATE 200 MG TABLET PO SCH ×2 (09:13→20:15)
[2018-09-20] MEDS: BACITRACIN 28.4 GM OINTMENT TP SCH (09:14)
[2018-09-20] MEDS: LOPERAMIDE HCL 2 MG CAPSULE PO PRN (10:09)
[2018-09-20] MEDS: LORazepam 2 MG TABLET PO PRN ×2 (10:09→16:42)
[2018-09-20 16:32] VITALS: BP 116/72
[2018-09-20] MEDS: HALOPERIDOL 5 MG TABLET PO PRN (18:02)
[2018-09-20] MEDS: ZOLPIDEM TARTRATE 10 MG TABLET PO PRN (21:16)
[2018-09-21 01:05] VITALS: BP 122/77
[2018-09-21 08:13] VITALS: BP 113/79
[2018-09-21] MEDS: METHADONE HCL 10 MG TABLET PO SCH (08:33)
[2018-09-21] MEDS: QUEtiapine FUMARATE 200 MG TABLET PO SCH ×2 (08:33→20:21)
[2018-09-21] MEDS: GABAPENTIN 300 MG CAPSULE PO SCH ×3 (08:33→16:07)
[2018-09-21] MEDS: SERTRALINE HCL 100 MG TABLET PO SCH (08:33)
[2018-09-21] MEDS: NICOTINE 14 MG/24 HOUR PATCH TD SCH (08:34)
[2018-09-21] MEDS: HYDROCORTISONE 1% 30 GM OINTMENT TP SCH ×2 (09:43→16:08)
[2018-09-21] MEDS: LORazepam 2 MG TABLET PO PRN ×3 (09:43→20:53)
[2018-09-21] MEDS: HALOPERIDOL 5 MG TABLET PO PRN ×2 (11:20→16:07)
[2018-09-21 16:05] VITALS: BP 117/82
[2018-09-22 02:05] VITALS: BP 125/89
[2018-09-22] MEDS: LORazepam 2 MG TABLET PO PRN ×4 (02:11→16:34)
[2018-09-22 08:31] VITALS: BP 111/68
[2018-09-22] MEDS: GABAPENTIN 300 MG CAPSULE PO SCH ×3 (08:33→16:19)
[2018-09-22] MEDS: SERTRALINE HCL 100 MG TABLET PO SCH (08:33)
[2018-09-22] MEDS: METHADONE HCL 10 MG TABLET PO SCH (08:33)
[2018-09-22] MEDS: NICOTINE 14 MG/24 HOUR PATCH TD SCH (08:33)
[2018-09-22] MEDS: QUEtiapine FUMARATE 200 MG TABLET PO SCH ×2 (08:33→20:19)
[2018-09-22] MEDS: HYDROCORTISONE 1% 30 GM OINTMENT TP SCH ×2 (08:42→17:38)
[2018-09-22 16:06] VITALS: BP 122/71
[2018-09-23 05:36] VITALS: BP 120/78
[2018-09-23 08:12] VITALS: BP 123/65
[2018-09-23] MEDS: QUEtiapine FUMARATE 200 MG TABLET PO SCH ×2 (09:52→20:11)
[2018-09-23] MEDS: SERTRALINE HCL 100 MG TABLET PO SCH (09:53)
[2018-09-23] MEDS: MetroNIDAZOLE 500 MG TABLET PO SCH ×3 (09:55→16:08)
[2018-09-23] MEDS: NICOTINE 14 MG/24 HOUR PATCH TD SCH (09:56)
[2018-09-23] MEDS: GABAPENTIN 300 MG CAPSULE PO SCH ×3 (09:56→16:08)
[2018-09-23] MEDS: METHADONE HCL 10 MG TABLET PO SCH (10:18)
[2018-09-23] MEDS: LORazepam 2 MG TABLET PO PRN ×3 (10:38→18:55)
[2018-09-23] MEDS: HYDROCORTISONE 1% 30 GM OINTMENT TP SCH ×2 (10:39→16:09)
[2018-09-23] MEDS: LOPERAMIDE HCL 2 MG CAPSULE PO PRN (14:43)
[2018-09-23] MEDS: HALOPERIDOL 5 MG TABLET PO PRN (15:54)
[2018-09-23 16:09] VITALS: BP 119/89
[2018-09-24 00:45] VITALS: BP 109/72
[2018-09-24 08:25] VITALS: BP 120/66
[2018-09-24] MEDS: QUEtiapine FUMARATE 200 MG TABLET PO SCH ×2 (09:00→19:57)
[2018-09-24] MEDS: GABAPENTIN 300 MG CAPSULE PO SCH ×3 (09:52→15:50)
[2018-09-24] MEDS: SERTRALINE HCL 100 MG TABLET PO SCH (09:52)
[2018-09-24] MEDS: METHADONE HCL 10 MG TABLET PO SCH (09:52)
[2018-09-24] MEDS: MetroNIDAZOLE 500 MG TABLET PO SCH ×3 (09:53→15:50)
[2018-09-24] MEDS: NICOTINE 14 MG/24 HOUR PATCH TD SCH (09:53)
[2018-09-24] MEDS: HYDROCORTISONE 1% 30 GM OINTMENT TP SCH ×2 (09:54→17:00)
[2018-09-24] MEDS: LORazepam 2 MG TABLET PO PRN ×3 (11:09→20:01)
[2018-09-24] MEDS: HALOPERIDOL 5 MG TABLET PO PRN ×2 (13:55→19:05)
[2018-09-24 16:09] VITALS: BP 125/76
[2018-09-25 04:00] VITALS: BP 118/78
[2018-09-25] MEDS: LORazepam 2 MG TABLET PO PRN ×3 (07:05→15:14)
[2018-09-25] MEDS: METHADONE HCL 10 MG TABLET PO SCH (08:29)
[2018-09-25] MEDS: MetroNIDAZOLE 500 MG TABLET PO SCH ×3 (08:29→16:54)
[2018-09-25] MEDS: GABAPENTIN 300 MG CAPSULE PO SCH ×3 (08:30→16:54)
[2018-09-25] MEDS: SERTRALINE HCL 100 MG TABLET PO SCH (08:30)
[2018-09-25 08:37] VITALS: BP 117/68
[2018-09-25] MEDS: NICOTINE 14 MG/24 HOUR PATCH TD SCH (08:38)
[2018-09-25] MEDS: HYDROCORTISONE 1% 30 GM OINTMENT TP SCH ×2 (08:39→16:55)
[2018-09-25] MEDS: QUEtiapine FUMARATE 200 MG TABLET PO SCH ×2 (08:39→20:15)
[2018-09-25] MEDS: HALOPERIDOL 5 MG TABLET PO PRN (13:52)
[2018-09-25 16:09] VITALS: BP 112/64
[2018-09-26 06:35] VITALS: BP 144/86
[2018-09-26] MEDS: LORazepam 2 MG TABLET PO PRN ×4 (06:36→20:30)
[2018-09-26 08:33] VITALS: BP 109/65
[2018-09-26] MEDS: METHADONE HCL 10 MG TABLET PO SCH (08:57)
[2018-09-26] MEDS: SERTRALINE HCL 100 MG TABLET PO SCH (08:59)
[2018-09-26] MEDS: MetroNIDAZOLE 500 MG TABLET PO SCH ×3 (08:59→16:10)
[2018-09-26] MEDS: GABAPENTIN 300 MG CAPSULE PO SCH ×3 (08:59→16:11)
[2018-09-26] MEDS: QUEtiapine FUMARATE 200 MG TABLET PO SCH ×2 (08:59→20:30)
[2018-09-26] MEDS: NICOTINE 14 MG/24 HOUR PATCH TD SCH (08:59)
[2018-09-26] MEDS: HYDROCORTISONE 1% 30 GM OINTMENT TP SCH ×2 (09:01→16:11)
[2018-09-26] MEDS ORDERED: LORazepam 2 MG/ML VIAL ONE (15:53)
[2018-09-26] MEDS ORDERED: HALOPERIDOL LACTATE 5 MG/ML VIAL ONE (15:54)
[2018-09-26] MEDS ORDERED: DiphenhydrAMINE HCL 50 MG/ML VIAL ONE (15:55)
[2018-09-26] MEDS ORDERED: LORazepam 2 MG/ML VIAL IM ONE (16:00)
[2018-09-26] MEDS ORDERED: HALOPERIDOL LACTATE 5 MG/ML VIAL IM ONE (16:00)
[2018-09-26] MEDS ORDERED: DiphenhydrAMINE HCL 50 MG/ML VIAL IM ONE (16:00)
[2018-09-26 16:08] VITALS: BP 123/74
[2018-09-26] MEDS: HALOPERIDOL 5 MG TABLET PO PRN (16:37)
[2018-09-27 07:22] VITALS: BP 118/70
[2018-09-27 08:39] VITALS: BP 117/66
[2018-09-27] MEDS: QUEtiapine FUMARATE 200 MG TABLET PO SCH (09:00)
[2018-09-27 09:03] LABS: ANION GAP 6 mmol/L (8-16); CALCIUM, TOTAL 9.4 mg/dL (8.8-10.5); CARBON DIOXIDE 31 mmol/L (22-29); CHLORIDE 102 mmol/L (98-107); CREATININE 0.82 mg/dL (0.60-1.30); GLOMERULAR FILTR. RATE CALC > 60 mL/min (>60); GLUCOSE,RANDOM 85 mg/dL (70-110); POTASSIUM 4.2 mmol/L (3.5-5.1); SODIUM SERUM 139 mmol/L (136-145); UREA NITROGEN, BLOOD 19 mg/dL (7-18)
[2018-09-27] MEDS: METHADONE HCL 10 MG TABLET PO SCH (09:21)
[2018-09-27] MEDS: GABAPENTIN 300 MG CAPSULE PO SCH ×2 (09:22→13:24)
[2018-09-27] MEDS: MetroNIDAZOLE 500 MG TABLET PO SCH ×2 (09:22→13:25)
[2018-09-27] MEDS: SERTRALINE HCL 100 MG TABLET PO SCH (09:22)
[2018-09-27] MEDS: NICOTINE 14 MG/24 HOUR PATCH TD SCH (09:28)
[2018-09-27] MEDS: HYDROCORTISONE 1% 30 GM OINTMENT TP SCH (09:29)
[2018-09-27] MEDS: LORazepam 2 MG TABLET PO PRN (09:49)
[2018-09-27] MEDS ORDERED: SERT100T12 PO (13:40)
[2018-09-27] MEDS ORDERED: METR500 PO (13:48)
== END 2018-09-27 14:50 | disposition home or self-care (01) | DRG 751 ==
LOC: EMS 16:37 → B2S 09-10 10:23
PROVIDERS: ADMIT Psychiatry & Neurology Psychiatry; ATTEND Psychiatry & Neurology Psychiatry
DX: F33.2 Major depressive disorder, recurrent severe without psychotic features (principal); R45.851 Suicidal ideations; F11.20 Opioid dependence, uncomplicated; B19.20 Unspecified viral hepatitis C without hepatic coma; Z88.8 Allergy status to other drugs, medicaments and biological substances; F10.10 Alcohol abuse, uncomplicated; E78.5 Hyperlipidemia, unspecified; F15.90 Other stimulant use, unspecified, uncomplicated; F17.200 Nicotine dependence, unspecified, uncomplicated; F41.9 Anxiety disorder, unspecified; Z91.5 Personal history of self-harm
CPT/HCPCS: 83036; 84439; 84443; G0480; J1200; J1630; J2060

== ENCOUNTER 2018-10-06 13:56 | Inpatient (IN) | payer MEDICAID, OTHER ==
[~2018-10-06] VITALS: Ht 182.9 cm; Wt 109.0 kg
[~2018-10-06 13:56] MED LIST changes: +METR500 PO; +SERT100T12 PO; -SERT50TA12 PO
[2018-10-06] MEDS ORDERED: SODIUM CHLORIDE 0.9% 1,000 ML IV ONE (14:30)
[2018-10-06 15:51] LABS: EOSINOPHILS % (AUTO) 3.1 % (1.0-6.0); HEMATOCRIT 42.1 % (41-53); HEMOGLOBIN 14.2 g/dL (13.5-17.5); LYMPHOCYTES # (AUTO) 1.8 K/uL (1.0-4.8); MEAN CORPUSCULAR HEMOGLOBIN 32.4 pg (26.0-34.0); MEAN CORPUSCULAR HGB CONC 33.8 G/dL (31.0-37.0); MEAN CORPUSCULAR VOLUME 96 fL (80-100); MONOCYTES # (AUTO) 0.3 K/uL (0.1-1.0); MONOCYTES % (AUTO) 6.7 % (2.0-9.0); NEUTROPHILS # (AUTO) 2.4 K/uL (1.8-7.7); NEUTROPHILS % (AUTO) 51.2 % (40.0-70.0); PLATELET COUNT (AUTO) 214 K/uL (150-450); RED BLOOD CELL COUNT(AUTO) 4.39 MIL/uL (4.50-5.90); RED CELL DISTRIBUTION WIDTH 12.4 % (11.5-14.5)
[2018-10-06 16:02] LABS: ANION GAP 8 mmol/L (8-16); CALCIUM, TOTAL 9.4 mg/dL (8.8-10.5); CARBON DIOXIDE 27 mmol/L (22-29); CHLORIDE 104 mmol/L (98-107); CREATININE 0.78 mg/dL (0.60-1.30); GLOMERULAR FILTR. RATE CALC > 60 mL/min (>60); GLUCOSE,RANDOM 92 mg/dL (70-110); POTASSIUM 4.2 mmol/L (3.5-5.1); SODIUM SERUM 139 mmol/L (136-145); UREA NITROGEN, BLOOD 21 mg/dL (7-18)
[2018-10-06 16:07] LABS: ALANINE AMINOTRANSFERASE 32 U/L (12-78); ALBUMIN 3.3 g/dL (3.4-5.0); ALKALINE PHOSPHATASE 85 U/L (46-116); ASPARTATE AMINOTRANSFERASE 29 U/L (15-37); BILIRUBIN,TOTAL 0.2 mg/dL (0.1-1.0); TOTAL PROTEIN, SERUM 6.8 g/dL (6.4-8.2)
[2018-10-06 16:21] LABS: ACETAMINOPHEN < 2 mcg/mL (10-30)
[2018-10-06 16:38] LABS: SALICYLATE < 2.8 mg/dL (2.8-20.0)
[2018-10-06 16:49] LABS: AMPHET/METH SCREEN,URINE POSITIVE (NEGATIVE); BARBITURATE SCREEN, URINE NEGATIVE (NEGATIVE); BENZODIAZEPINES SCREEN,URINE POSITIVE (NEGATIVE); CANNABINOID SCREEN,URINE NEGATIVE (NEGATIVE); COCAINE SCREEN,URINE NEGATIVE (NEGATIVE); METHADONE SCREEN, URINE POSITIVE (NEGATIVE); OPIATE SCREEN,URINE POSITIVE (NEGATIVE)
[2018-10-06 16:50] LABS: PHENCYCLIDINE SCREEN,URINE NEGATIVE (NEGATIVE)
[2018-10-07 00:11] VITALS: BP 115/76
[2018-10-07] MEDS ORDERED: NICOTINE 14 MG/24 HOUR PATCH TD PRN ×2 (00:30→06:15)
[2018-10-07] MEDS ORDERED: CloNIDine HCL 0.1 MG TABLET PO PRN ×2 (00:30→06:15)
[2018-10-07] MEDS ORDERED: ONDANSETRON HCL 4 MG TABLET PO PRN ×2 (00:30→06:15)
[2018-10-07] MEDS ORDERED: DOCUSATE SODIUM 100 MG CAPSULE PO PRN ×2 (00:30→06:15)
[2018-10-07] MEDS ORDERED: LOPERAMIDE HCL 2 MG CAPSULE PO PRN ×2 (00:30→06:15)
[2018-10-07] MEDS ORDERED: PETROLATUM,WHITE 71 GM JELLY TP PRN ×2 (00:30→06:15)
[2018-10-07] MEDS ORDERED: ALBUTEROL SULFATE HFA 90 MCG/PUFF 8 GM INHALER IH PRN ×2 (00:30→06:15)
[2018-10-07] MEDS ORDERED: MAG HYDROX/AL HYDROX/SIMETH ES 30 ML SUSPENSION UDCUP PO PRN ×2 (00:30→06:15)
[2018-10-07] MEDS ORDERED: IBUPROFEN 400 MG TABLET PO PRN ×2 (00:30→06:15)
[2018-10-07] MEDS ORDERED: ACETAMINOPHEN 325 MG TABLET PO PRN ×2 (00:30→06:15)
[2018-10-07] MEDS ORDERED: GuaiFENesin/D-METHORPHAN [SUGAR-FREE] 200-20MG/10 ML SYRUP UDCUP PO PRN ×2 (00:30→06:15)
[2018-10-07] MEDS ORDERED: MAGNESIUM HYDROXIDE SUSPENSION 30 ML UDCUP PO PRN ×2 (00:30→06:15)
[2018-10-07] MEDS: ZOLPIDEM TARTRATE 10 MG TABLET PO PRN ×2 (00:48→21:01)
[2018-10-07 08:10] VITALS: BP_SYST 111; BP_SYST 127; BP_DIAS 64; BP_DIAS 78
[2018-10-07] MEDS: LORazepam 2 MG TABLET PO PRN ×3 (08:57→17:24)
[2018-10-07] MEDS: HALOPERIDOL 5 MG TABLET PO PRN (08:57)
[2018-10-07] MEDS: METHADONE HCL 10 MG/5 ML SOLUTION ORAL.SYG PO SCH (11:42)
[2018-10-07] MEDS: GABAPENTIN 300 MG CAPSULE PO SCH ×2 (12:26→17:24)
[2018-10-07 16:35] VITALS: BP 111/83
[2018-10-07] MEDS: QUEtiapine FUMARATE 200 MG TABLET PO SCH (21:02)
[2018-10-08 08:59] LABS: BASOPHILS % (AUTO) 0.8 % (0.0-2.0); EOSINOPHILS % (AUTO) 4.4 % (1.0-6.0); HEMATOCRIT 42.1 % (41-53); HEMOGLOBIN 14.4 g/dL (13.5-17.5); LYMPHOCYTES # (AUTO) 2.1 K/uL (1.0-4.8); LYMPHOCYTES % (AUTO) 38.6 % (22.0-44.0); MEAN CORPUSCULAR HEMOGLOBIN 32.9 pg (26.0-34.0); MEAN CORPUSCULAR HGB CONC 34.2 G/dL (31.0-37.0); MEAN CORPUSCULAR VOLUME 96 fL (80-100); MONOCYTES # (AUTO) 0.5 K/uL (0.1-1.0); MONOCYTES % (AUTO) 9.9 % (2.0-9.0); NEUTROPHILS # (AUTO) 2.5 K/uL (1.8-7.7); NEUTROPHILS % (AUTO) 46.3 % (40.0-70.0); PLATELET COUNT (AUTO) 222 K/uL (150-450); RED BLOOD CELL COUNT(AUTO) 4.37 MIL/uL (4.50-5.90); RED CELL DISTRIBUTION WIDTH 12.6 % (11.5-14.5)
[2018-10-08] MEDS: SERTRALINE HCL 50 MG TABLET PO SCH (09:28)
[2018-10-08] MEDS: GABAPENTIN 300 MG CAPSULE PO SCH ×3 (09:29→17:06)
[2018-10-08] MEDS: QUEtiapine FUMARATE 300 MG TABLET PO SCH (09:30)
[2018-10-08] MEDS: METHADONE HCL 10 MG/5 ML SOLUTION ORAL.SYG PO SCH (09:36)
[2018-10-08 09:42] LABS: HEMOGLOBIN A1C 5.5 % (4.5-6.2)
[2018-10-08 09:48] LABS: ALANINE AMINOTRANSFERASE 30 U/L (12-78); ALBUMIN 3.4 g/dL (3.4-5.0); ALKALINE PHOSPHATASE 84 U/L (46-116); ANION GAP 6 mmol/L (8-16); ASPARTATE AMINOTRANSFERASE 22 U/L (15-37); BILIRUBIN,TOTAL 0.2 mg/dL (0.1-1.0); CALCIUM, TOTAL 9.4 mg/dL (8.8-10.5); CARBON DIOXIDE 31 mmol/L (22-29); CHLORIDE 103 mmol/L (98-107); CHOL/HDL RATIO 6.4 (4.2-7.3); CHOLESTEROL 256 mg/dL (131-200); GLOMERULAR FILTR. RATE CALC > 60 mL/min (>60); GLUCOSE,RANDOM 83 mg/dL (70-110); HDL CHOLESTEROL 40 mg/dL (40-60); LDL CHOL (CALC.) 168 mg/dL (0-130); POTASSIUM 4.3 mmol/L (3.5-5.1); SODIUM SERUM 140 mmol/L (136-145); THYROID STIMULATING HORMONE 1.96 uIU/mL (0.36-3.74); TOTAL PROTEIN, SERUM 6.5 g/dL (6.4-8.2); TRIGLYCERIDES 240 mg/dL (15-150); UREA NITROGEN, BLOOD 19 mg/dL (7-18)
[2018-10-08] MEDS: LORazepam 2 MG TABLET PO PRN ×2 (11:28→17:06)
[2018-10-08] MEDS: HALOPERIDOL 5 MG TABLET PO PRN (11:28)
[2018-10-08 16:02] VITALS: BP 107/62
[2018-10-08] MEDS: QUEtiapine FUMARATE 200 MG TABLET PO SCH (20:55)
[2018-10-08] MEDS: ZOLPIDEM TARTRATE 10 MG TABLET PO PRN (20:55)
[2018-10-09 06:09] VITALS: BP 115/78
[2018-10-09 08:06] VITALS: BP 108/65
[2018-10-09] MEDS: SERTRALINE HCL 50 MG TABLET PO SCH (08:19)
[2018-10-09] MEDS: GABAPENTIN 300 MG CAPSULE PO SCH ×3 (08:19→16:18)
[2018-10-09] MEDS: QUEtiapine FUMARATE 300 MG TABLET PO SCH (08:20)
[2018-10-09] MEDS: METHADONE HCL 10 MG/5 ML SOLUTION ORAL.SYG PO SCH (08:24)
[2018-10-09] MEDS: LORazepam 2 MG TABLET PO PRN ×3 (10:45→20:16)
[2018-10-09 16:11] VITALS: BP 108/66
[2018-10-09] MEDS: HALOPERIDOL 5 MG TABLET PO PRN (16:18)
[2018-10-09] MEDS: QUEtiapine FUMARATE 200 MG TABLET PO SCH (20:16)
[2018-10-09] MEDS: ZOLPIDEM TARTRATE 10 MG TABLET PO PRN (20:16)
[2018-10-10] MEDS: LORazepam 2 MG TABLET PO PRN ×4 (00:48→20:15)
[2018-10-10 01:22] VITALS: BP 118/78
[2018-10-10 08:07] VITALS: BP 111/67
[2018-10-10] MEDS: QUEtiapine FUMARATE 300 MG TABLET PO SCH (08:15)
[2018-10-10] MEDS: GABAPENTIN 300 MG CAPSULE PO SCH ×3 (08:15→16:26)
[2018-10-10] MEDS: SERTRALINE HCL 50 MG TABLET PO SCH (08:15)
[2018-10-10] MEDS: METHADONE HCL 10 MG/5 ML SOLUTION ORAL.SYG PO SCH (08:16)
[2018-10-10] MEDS: HALOPERIDOL 5 MG TABLET PO PRN (14:02)
[2018-10-10 16:06] VITALS: BP 112/71
[2018-10-10] MEDS: QUEtiapine FUMARATE 200 MG TABLET PO SCH (20:14)
[2018-10-10] MEDS: ZOLPIDEM TARTRATE 10 MG TABLET PO PRN (20:15)
[2018-10-11 06:09] VITALS: BP 114/76
[2018-10-11 08:08] VITALS: BP 107/61
[2018-10-11] MEDS: SERTRALINE HCL 50 MG TABLET PO SCH (09:05)
[2018-10-11] MEDS: QUEtiapine FUMARATE 300 MG TABLET PO SCH (09:05)
[2018-10-11] MEDS: GABAPENTIN 300 MG CAPSULE PO SCH ×2 (09:05→12:32)
[2018-10-11] MEDS ORDERED: QUET300T2 PO (09:07)
[2018-10-11] MEDS ORDERED: QUET200T PO (09:07)
[2018-10-11] MEDS: METHADONE HCL 10 MG/5 ML SOLUTION ORAL.SYG PO SCH (09:07)
[2018-10-11] MEDS ORDERED: SERT100T12 PO (09:07)
== END 2018-10-11 13:15 | disposition home or self-care (01) | DRG 751 ==
LOC: EMS 13:57 → UNDOADMIN 21:00 → B2S 21:00 → B3A 21:00
PROVIDERS: ADMIT Psychiatry & Neurology Psychiatry; ATTEND Psychiatry & Neurology Psychiatry
DX: F33.2 Major depressive disorder, recurrent severe without psychotic features (principal); F11.20 Opioid dependence, uncomplicated; R56.9 Unspecified convulsions; B18.2 Chronic viral hepatitis C; F17.210 Nicotine dependence, cigarettes, uncomplicated; F15.10 Other stimulant abuse, uncomplicated; I10 Essential (primary) hypertension; F41.9 Anxiety disorder, unspecified; I45.81 Long QT syndrome; T50.902A Poisoning by unspecified drugs, medicaments and biological substances, intentional self-harm, initial encounter; Z91.5 Personal history of self-harm; Z88.1 Allergy status to other antibiotic agents; Y92.89 Other specified places as the place of occurrence of the external cause; Z79.899 Other long term (current) drug therapy; Z71.41 Alcohol abuse counseling and surveillance of alcoholic; Z71.51 Drug abuse counseling and surveillance of drug abuser
CPT/HCPCS: 83036; 84443; 87081; 93005; G0480; G0481

== ENCOUNTER 2019-01-13 19:36 | Inpatient (IN) | payer MEDICAID, OTHER ==
[~2019-01-13] VITALS: Ht 182.9 cm; Wt 111.4 kg
[~2019-01-13 19:36] MED LIST changes: -METR500 PO; +QUET300T2 PO
[2019-01-13] MEDS ORDERED: METH10 PO (19:51)
[2019-01-13 21:20] LABS: BASOPHILS % (AUTO) 0.8 % (0.0-2.0); EOSINOPHILS % (AUTO) 0.6 % (1.0-6.0); HEMATOCRIT 42.3 % (41-53); HEMOGLOBIN 14.4 g/dL (13.5-17.5); LYMPHOCYTES # (AUTO) 2.5 K/uL (1.0-4.8); MEAN CORPUSCULAR HEMOGLOBIN 33.1 pg (26.0-34.0); MEAN CORPUSCULAR HGB CONC 34.1 G/dL (31.0-37.0); MEAN CORPUSCULAR VOLUME 97 fL (80-100); MONOCYTES # (AUTO) 0.5 K/uL (0.1-1.0); MONOCYTES % (AUTO) 7.1 % (2.0-9.0); NEUTROPHILS # (AUTO) 4.2 K/uL (1.8-7.7); NEUTROPHILS % (AUTO) 57.5 % (40.0-70.0); PLATELET COUNT (AUTO) 277 K/uL (150-450); RED BLOOD CELL COUNT(AUTO) 4.36 MIL/uL (4.50-5.90); RED CELL DISTRIBUTION WIDTH 13.3 % (11.5-14.5)
[2019-01-13 21:22] LABS: AMPHET/METH SCREEN,URINE POSITIVE (NEGATIVE); BARBITURATE SCREEN, URINE NEGATIVE (NEGATIVE); BENZODIAZEPINES SCREEN,URINE POSITIVE (NEGATIVE); CANNABINOID SCREEN,URINE POSITIVE (NEGATIVE); COCAINE SCREEN,URINE NEGATIVE (NEGATIVE); METHADONE SCREEN, URINE POSITIVE (NEGATIVE); OPIATE SCREEN,URINE POSITIVE (NEGATIVE)
[2019-01-13 21:24] LABS: PHENCYCLIDINE SCREEN,URINE NEGATIVE (NEGATIVE)
[2019-01-13 21:33] LABS: ANION GAP 10 mmol/L (8-16); CALCIUM, TOTAL 9.3 mg/dL (8.8-10.5); CARBON DIOXIDE 29 mmol/L (22-29); CHLORIDE 103 mmol/L (98-107); CREATININE 1.23 mg/dL (0.60-1.30); GLOMERULAR FILTR. RATE CALC > 60 mL/min (>60); GLUCOSE,RANDOM 82 mg/dL (70-110); POTASSIUM 4.1 mmol/L (3.5-5.1); SODIUM SERUM 142 mmol/L (136-145); UREA NITROGEN, BLOOD 30 mg/dL (7-18)
[2019-01-13 21:39] LABS: ALANINE AMINOTRANSFERASE 39 U/L (12-78); ALBUMIN 4.2 g/dL (3.4-5.0); ALKALINE PHOSPHATASE 108 U/L (46-116); ASPARTATE AMINOTRANSFERASE 30 U/L (15-37); BILIRUBIN,TOTAL 0.1 mg/dL (0.1-1.0); TOTAL PROTEIN, SERUM 7.8 g/dL (6.4-8.2)
[2019-01-13] MEDS ORDERED: HALOPERIDOL LACTATE 5 MG/ML VIAL IM ONE (22:45)
[2019-01-13] MEDS ORDERED: DiphenhydrAMINE HCL 50 MG/ML VIAL IM ONE (22:45)
[2019-01-13] MEDS ORDERED: HALOPERIDOL 5 MG TABLET PO PRN (23:15)
[2019-01-13] MEDS ORDERED: ZOLPIDEM TARTRATE 10 MG TABLET PO PRN (23:15)
[2019-01-14] VITALS (10 sets, daily range): BP systolic 105–132; BP diastolic 62–90
[2019-01-14] MEDS ORDERED: PNEUMOCOCCAL VACCINE POLYVALENT 0.5 ML VIAL [PPSV23] IM ONE (06:00)
[2019-01-14 07:51] LABS: CHOL/HDL RATIO 6.7 (4.2-7.3); CHOLESTEROL 267 mg/dL (131-200); HDL CHOLESTEROL 40 mg/dL (40-60); TRIGLYCERIDES 437 mg/dL (15-150)
[2019-01-14] MEDS: ATORVASTATIN CALCIUM 20 MG TABLET PO SCH (11:47)
[2019-01-14] MEDS: LORazepam 2 MG TABLET PO PRN ×2 (11:47→17:10)
[2019-01-14] MEDS: GABAPENTIN 300 MG CAPSULE PO SCH ×2 (12:11→16:39)
[2019-01-14] MEDS: METHADONE HCL 10 MG/5 ML SOLUTION ORAL.SYG PO SCH (13:08)
[2019-01-14] MEDS ORDERED: QUEtiapine FUMARATE 200 MG TABLET PO SCH (21:00)
[2019-01-15 01:00] VITALS: BP 128/84
[2019-01-15 05:00] VITALS: BP 102/68
[2019-01-15 08:16] VITALS: BP 120/68
[2019-01-15] MEDS: QUEtiapine FUMARATE 200 MG TABLET PO SCH (08:23)
[2019-01-15] MEDS: ATORVASTATIN CALCIUM 20 MG TABLET PO SCH (08:23)
[2019-01-15] MEDS: SERTRALINE HCL 100 MG TABLET PO SCH (08:23)
[2019-01-15] MEDS: GABAPENTIN 300 MG CAPSULE PO SCH ×3 (08:24→16:27)
[2019-01-15] MEDS: METHADONE HCL 10 MG/5 ML SOLUTION ORAL.SYG PO SCH (08:25)
[2019-01-15] MEDS: LORazepam 2 MG TABLET PO PRN ×3 (10:35→20:52)
[2019-01-15] MEDS: NICOTINE 21 MG/24 HOUR PATCH TD SCH (12:21)
[2019-01-15] MEDS ORDERED: MAGNESIUM CITRATE 300 ML ORAL SOLUTION PO PRN ×2 (16:00)
[2019-01-15 16:06] VITALS: BP 124/83
[2019-01-15] MEDS ORDERED: QUEtiapine FUMARATE 300 MG TABLET PO SCH (21:00)
[2019-01-16 06:17] VITALS: BP 110/76
[2019-01-16 08:10] VITALS: BP 127/86
[2019-01-16] MEDS: SERTRALINE HCL 100 MG TABLET PO SCH (08:41)
[2019-01-16] MEDS: GABAPENTIN 300 MG CAPSULE PO SCH ×2 (08:41→12:17)
[2019-01-16] MEDS: QUEtiapine FUMARATE 200 MG TABLET PO SCH (08:41)
[2019-01-16] MEDS: ATORVASTATIN CALCIUM 20 MG TABLET PO SCH (08:41)
[2019-01-16] MEDS: NICOTINE 21 MG/24 HOUR PATCH TD SCH (08:42)
[2019-01-16] MEDS: METHADONE HCL 10 MG/5 ML SOLUTION ORAL.SYG PO SCH (08:44)
[2019-01-16] MEDS ORDERED: DOCUSATE SODIUM 250 MG CAPSULE PO SCH (09:00)
[2019-01-16] MEDS: LORazepam 2 MG TABLET PO PRN (10:13)
[2019-01-16] MEDS ORDERED: QUET300T2 PO (13:01)
[2019-01-16] MEDS ORDERED: QUET200T PO (13:01)
[2019-01-16] MEDS ORDERED: SERT100T12 PO (13:02)
[2019-01-16] MEDS ORDERED: ATOR20TA86 PO (13:04)
[2019-01-16] MEDS ORDERED: DOCU250C91 PO (13:04)
[2019-01-16 16:15] VITALS: BP 136/92
[2019-01-18 14:16] LABS: HIV 1-2 SCREEN 4TH GEN W/RFLX Non Reactive (Non Reactive)
== END 2019-01-16 14:20 | disposition home or self-care (01) | DRG 751 ==
LOC: EMS 19:37 → B2S 01-14 00:17
PROVIDERS: ADMIT Psychiatry & Neurology Psychiatry; ATTEND Psychiatry & Neurology Psychiatry
DX: F33.2 Major depressive disorder, recurrent severe without psychotic features (principal); R45.851 Suicidal ideations; F11.20 Opioid dependence, uncomplicated; F29 Unspecified psychosis not due to a substance or known physiological condition; F17.210 Nicotine dependence, cigarettes, uncomplicated; B19.20 Unspecified viral hepatitis C without hepatic coma; F60.3 Borderline personality disorder; E78.5 Hyperlipidemia, unspecified; F19.90 Other psychoactive substance use, unspecified, uncomplicated; F41.9 Anxiety disorder, unspecified; Z88.1 Allergy status to other antibiotic agents; Z79.899 Other long term (current) drug therapy; Z91.5 Personal history of self-harm
CPT/HCPCS: 86592; 87389; G0480; J1200; J1630

== ENCOUNTER 2019-01-18 14:53 | Emergency (ER) | payer MEDICAID, OTHER ==
[~2019-01-18] VITALS: Ht 182.9 cm; Wt 109.1 kg
[~2019-01-18 14:53] MED LIST changes: +ATOR20TA86 PO; +DOCU250C91 PO
[2019-01-18 15:48] LABS: BASOPHILS % (AUTO) 0.6 % (0.0-2.0); EOSINOPHILS % (AUTO) 0.4 % (1.0-6.0); HEMATOCRIT 43.6 % (41-53); HEMOGLOBIN 14.7 g/dL (13.5-17.5); LYMPHOCYTES # (AUTO) 2.2 K/uL (1.0-4.8); LYMPHOCYTES % (AUTO) 22.6 % (22.0-44.0); MEAN CORPUSCULAR HEMOGLOBIN 32.7 pg (26.0-34.0); MEAN CORPUSCULAR HGB CONC 33.8 G/dL (31.0-37.0); MEAN CORPUSCULAR VOLUME 97 fL (80-100); MONOCYTES # (AUTO) 1.1 K/uL (0.1-1.0); MONOCYTES % (AUTO) 10.8 % (2.0-9.0); NEUTROPHILS # (AUTO) 6.4 K/uL (1.8-7.7); NEUTROPHILS % (AUTO) 65.6 % (40.0-70.0); PLATELET COUNT (AUTO) 273 K/uL (150-450); RED BLOOD CELL COUNT(AUTO) 4.51 MIL/uL (4.50-5.90); RED CELL DISTRIBUTION WIDTH 13.1 % (11.5-14.5)
[2019-01-18 15:51] LABS: ANION GAP 11 mmol/L (8-16); CALCIUM, TOTAL 9.7 mg/dL (8.8-10.5); CARBON DIOXIDE 26 mmol/L (22-29); CHLORIDE 102 mmol/L (98-107); GLOMERULAR FILTR. RATE CALC > 60 mL/min (>60); GLUCOSE,RANDOM 88 mg/dL (70-110); POTASSIUM 3.7 mmol/L (3.5-5.1); SODIUM SERUM 139 mmol/L (136-145); UREA NITROGEN, BLOOD 22 mg/dL (7-18)
[2019-01-18 15:57] LABS: ACETAMINOPHEN < 2 mcg/mL (10-30); ALANINE AMINOTRANSFERASE 34 U/L (12-78); ALBUMIN 4.5 g/dL (3.4-5.0); ALKALINE PHOSPHATASE 110 U/L (46-116); ASPARTATE AMINOTRANSFERASE 35 U/L (15-37); BILIRUBIN,TOTAL 0.4 mg/dL (0.1-1.0); TOTAL PROTEIN, SERUM 8.3 g/dL (6.4-8.2)
[2019-01-18 16:18] LABS: SALICYLATE 3.8 mg/dL (2.8-20.0)
[2019-01-18 16:30] LABS: AMPHET/METH SCREEN,URINE POSITIVE (NEGATIVE); BARBITURATE SCREEN, URINE NEGATIVE (NEGATIVE); BENZODIAZEPINES SCREEN,URINE POSITIVE (NEGATIVE); CANNABINOID SCREEN,URINE POSITIVE (NEGATIVE); COCAINE SCREEN,URINE NEGATIVE (NEGATIVE); METHADONE SCREEN, URINE POSITIVE (NEGATIVE); OPIATE SCREEN,URINE POSITIVE (NEGATIVE)
[2019-01-18 16:31] LABS: PHENCYCLIDINE SCREEN,URINE NEGATIVE (NEGATIVE)
[2019-01-18 18:20] VITALS: BP 130/84
== END 2019-01-18 19:05 | disposition left against medical advice (07) ==
LOC: EMS 14:55
DX: T42.4X2A Poisoning by benzodiazepines, intentional self-harm, initial encounter (principal); F31.9 Bipolar disorder, unspecified; F41.9 Anxiety disorder, unspecified; F11.90 Opioid use, unspecified, uncomplicated; F12.90 Cannabis use, unspecified, uncomplicated; F15.90 Other stimulant use, unspecified, uncomplicated; F17.210 Nicotine dependence, cigarettes, uncomplicated; Z88.1 Allergy status to other antibiotic agents; Z79.899 Other long term (current) drug therapy; Y92.89 Other specified places as the place of occurrence of the external cause
CPT/HCPCS: 36415; 80053; 80307; 85025; 99283; G0480 ×2; G0481

== ENCOUNTER 2019-01-19 | Inpatient (IN) | payer MEDICAID, OTHER ==
[~2019-01-19] VITALS: Ht 182.9 cm; Wt 113.7 kg
[2019-01-19] MEDS ORDERED: LORazepam 2 MG TABLET PO ONE (01:45)
[2019-01-19] MEDS ORDERED: QUEtiapine FUMARATE 100 MG TABLET PO ONE (01:45)
[2019-01-19] MEDS ORDERED: DiphenhydrAMINE HCL 25 MG CAPSULE PO ONE (01:45)
[2019-01-19 02:42] LABS: BASOPHILS % (AUTO) 0.8 % (0.0-2.0); EOSINOPHILS % (AUTO) 0.8 % (1.0-6.0); HEMATOCRIT 38.6 % (41-53); HEMOGLOBIN 13.2 g/dL (13.5-17.5); LYMPHOCYTES # (AUTO) 1.9 K/uL (1.0-4.8); LYMPHOCYTES % (AUTO) 26.7 % (22.0-44.0); MEAN CORPUSCULAR HEMOGLOBIN 32.8 pg (26.0-34.0); MEAN CORPUSCULAR HGB CONC 34.3 G/dL (31.0-37.0); MEAN CORPUSCULAR VOLUME 96 fL (80-100); MONOCYTES # (AUTO) 0.8 K/uL (0.1-1.0); MONOCYTES % (AUTO) 10.4 % (2.0-9.0); NEUTROPHILS # (AUTO) 4.5 K/uL (1.8-7.7); NEUTROPHILS % (AUTO) 61.3 % (40.0-70.0); PLATELET COUNT (AUTO) 216 K/uL (150-450); RED BLOOD CELL COUNT(AUTO) 4.03 MIL/uL (4.50-5.90)
[2019-01-19 02:45] LABS: ANION GAP 6 mmol/L (8-16); CALCIUM, TOTAL 9.4 mg/dL (8.8-10.5); CARBON DIOXIDE 30 mmol/L (22-29); CHLORIDE 101 mmol/L (98-107); CREATININE 1.09 mg/dL (0.60-1.30); GLOMERULAR FILTR. RATE CALC > 60 mL/min (>60); GLUCOSE,RANDOM 83 mg/dL (70-110); POTASSIUM 3.7 mmol/L (3.5-5.1); SODIUM SERUM 137 mmol/L (136-145); UREA NITROGEN, BLOOD 24 mg/dL (7-18)
[2019-01-19 02:51] LABS: ALANINE AMINOTRANSFERASE 31 U/L (12-78); ALBUMIN 3.8 g/dL (3.4-5.0); ALKALINE PHOSPHATASE 96 U/L (46-116); ASPARTATE AMINOTRANSFERASE 40 U/L (15-37); BILIRUBIN,TOTAL 0.5 mg/dL (0.1-1.0); TOTAL PROTEIN, SERUM 6.9 g/dL (6.4-8.2)
[2019-01-19 03:24] LABS: AMPHET/METH SCREEN,URINE POSITIVE (NEGATIVE); BARBITURATE SCREEN, URINE NEGATIVE (NEGATIVE); BENZODIAZEPINES SCREEN,URINE POSITIVE (NEGATIVE); CANNABINOID SCREEN,URINE POSITIVE (NEGATIVE); COCAINE SCREEN,URINE NEGATIVE (NEGATIVE); METHADONE SCREEN, URINE POSITIVE (NEGATIVE); OPIATE SCREEN,URINE POSITIVE (NEGATIVE)
[2019-01-19 03:27] LABS: PHENCYCLIDINE SCREEN,URINE NEGATIVE (NEGATIVE)
[2019-01-19 04:55] VITALS: BP 127/83
[2019-01-19 08:30] VITALS: BP 106/60
[2019-01-19 09:09] LABS: APPEARANCE,URINE TURBID (CLEAR); BILIRUBIN,URINE NEGATIVE (NEGATIVE); GLUCOSE, URINE (UA) NEGATIVE (NEGATIVE); KETONES,URINE NEGATIVE (NEGATIVE); LEUKOCYTE ESTERASE ,URINE NEGATIVE (NEGATIVE); NITRATE,URINE NEGATIVE (NEGATIVE); OCCULT BLOOD,URINE NEGATIVE (NEGATIVE); PROTEIN,URINE NEGATIVE (NEGATIVE); UROBILINOGEN,URINE 0.2 mg/dL (<=1.0)
[2019-01-19] MEDS: SERTRALINE HCL 100 MG TABLET PO SCH (12:14)
[2019-01-19] MEDS: QUEtiapine FUMARATE 200 MG TABLET PO SCH (12:14)
[2019-01-19] MEDS: GABAPENTIN 300 MG CAPSULE PO SCH ×2 (12:21→17:23)
[2019-01-19] MEDS: METHADONE HCL 10 MG/5 ML SOLUTION ORAL.SYG PO SCH (13:40)
[2019-01-19] MEDS ORDERED: MAGNESIUM HYDROXIDE SUSPENSION 30 ML UDCUP PO PRN (15:45)
[2019-01-19] MEDS ORDERED: ACETAMINOPHEN 325 MG TABLET PO PRN (15:45)
[2019-01-19] MEDS ORDERED: IBUPROFEN 400 MG TABLET PO PRN (15:45)
[2019-01-19] MEDS ORDERED: MAG HYDROX/AL HYDROX/SIMETH ES 30 ML SUSPENSION UDCUP PO PRN (15:45)
[2019-01-19] MEDS ORDERED: PETROLATUM,WHITE 28 GM JELLY TP PRN (15:45)
[2019-01-19] MEDS ORDERED: ONDANSETRON HCL 4 MG TABLET PO PRN (15:45)
[2019-01-19] MEDS ORDERED: ALBUTEROL SULFATE HFA 90 MCG/PUFF 8 GM INHALER IH PRN (15:45)
[2019-01-19] MEDS ORDERED: GuaiFENesin/D-METHORPHAN [SUGAR-FREE] 200-20MG/10 ML SYRUP UDCUP PO PRN (15:45)
[2019-01-19] MEDS ORDERED: LOPERAMIDE HCL 2 MG CAPSULE PO PRN (15:45)
[2019-01-19] MEDS ORDERED: DOCUSATE SODIUM 100 MG CAPSULE PO PRN (15:45)
[2019-01-19] MEDS ORDERED: CloNIDine HCL 0.1 MG TABLET PO PRN (15:45)
[2019-01-19 16:00] VITALS: BP 111/68
[2019-01-19] MEDS: LORazepam 2 MG TABLET PO PRN (17:23)
[2019-01-19] MEDS: QUEtiapine FUMARATE 300 MG TABLET PO SCH (20:08)
[2019-01-20 06:39] LABS: BASOPHILS % (AUTO) 0.8 % (0.0-2.0); HEMATOCRIT 40.6 % (41-53); HEMOGLOBIN 13.4 g/dL (13.5-17.5); LYMPHOCYTES # (AUTO) 1.5 K/uL (1.0-4.8); LYMPHOCYTES % (AUTO) 37.6 % (22.0-44.0); MEAN CORPUSCULAR HEMOGLOBIN 32.7 pg (26.0-34.0); MEAN CORPUSCULAR HGB CONC 32.9 G/dL (31.0-37.0); MEAN CORPUSCULAR VOLUME 99 fL (80-100); MONOCYTES # (AUTO) 0.4 K/uL (0.1-1.0); MONOCYTES % (AUTO) 9.9 % (2.0-9.0); NEUTROPHILS % (AUTO) 49.7 % (40.0-70.0); PLATELET COUNT (AUTO) 193 K/uL (150-450); RED BLOOD CELL COUNT(AUTO) 4.09 MIL/uL (4.50-5.90); RED CELL DISTRIBUTION WIDTH 13.1 % (11.5-14.5)
[2019-01-20 07:22] LABS: ALANINE AMINOTRANSFERASE 28 U/L (12-78); ALBUMIN 3.1 g/dL (3.4-5.0); ALKALINE PHOSPHATASE 92 U/L (46-116); ANION GAP 9 mmol/L (8-16); ASPARTATE AMINOTRANSFERASE 30 U/L (15-37); BILIRUBIN,TOTAL 0.2 mg/dL (0.1-1.0); CALCIUM, TOTAL 9.1 mg/dL (8.8-10.5); CARBON DIOXIDE 26 mmol/L (22-29); CHLORIDE 105 mmol/L (98-107); CHOL/HDL RATIO 4.6 (4.2-7.3); CHOLESTEROL 171 mg/dL (131-200); CREATININE 0.83 mg/dL (0.60-1.30); GLOMERULAR FILTR. RATE CALC > 60 mL/min (>60); GLUCOSE,RANDOM 89 mg/dL (70-110); HDL CHOLESTEROL 37 mg/dL (40-60); LDL CHOL (CALC.) 100 mg/dL (0-130); POTASSIUM 3.7 mmol/L (3.5-5.1); SODIUM SERUM 140 mmol/L (136-145); THYROID STIMULATING HORMONE 1.57 uIU/mL (0.36-3.74); TRIGLYCERIDES 171 mg/dL (15-150); UREA NITROGEN, BLOOD 20 mg/dL (7-18)
[2019-01-20 09:25] VITALS: BP 111/73
[2019-01-20] MEDS: SERTRALINE HCL 100 MG TABLET PO SCH (09:31)
[2019-01-20] MEDS: GABAPENTIN 300 MG CAPSULE PO SCH ×3 (09:31→16:03)
[2019-01-20] MEDS: QUEtiapine FUMARATE 200 MG TABLET PO SCH (09:31)
[2019-01-20] MEDS: METHADONE HCL 10 MG/5 ML SOLUTION ORAL.SYG PO SCH (10:28)
[2019-01-20 10:30] VITALS: BP 111/73
[2019-01-20] MEDS: VENLAFAXINE HCL 75 MG ER CAPSULE PO SCH (12:02)
[2019-01-20] MEDS: LORazepam 2 MG TABLET PO PRN ×3 (12:02→20:23)
[2019-01-20] MEDS: NICOTINE 14 MG/24 HOUR PATCH TD PRN (13:17)
[2019-01-20 16:08] VITALS: BP 116/68
[2019-01-20] MEDS: QUEtiapine FUMARATE 300 MG TABLET PO SCH (20:23)
[2019-01-21 08:15] VITALS: BP 110/88
[2019-01-21] MEDS: GABAPENTIN 300 MG CAPSULE PO SCH ×3 (08:51→17:26)
[2019-01-21] MEDS: VENLAFAXINE HCL 75 MG ER CAPSULE PO SCH (08:51)
[2019-01-21] MEDS: QUEtiapine FUMARATE 200 MG TABLET PO SCH (08:51)
[2019-01-21] MEDS: METHADONE HCL 10 MG/5 ML SOLUTION ORAL.SYG PO SCH (08:52)
[2019-01-21] MEDS: LORazepam 2 MG TABLET PO PRN ×3 (08:57→17:30)
[2019-01-21] MEDS: HALOPERIDOL 5 MG TABLET PO PRN ×2 (08:57→13:11)
[2019-01-21 16:27] VITALS: BP 109/77
[2019-01-21] MEDS: QUEtiapine FUMARATE 300 MG TABLET PO SCH (20:15)
[2019-01-22 01:32] VITALS: BP 101/61
[2019-01-22] MEDS: ZOLPIDEM TARTRATE 10 MG TABLET PO PRN (01:34)
[2019-01-22 08:45] VITALS: BP 107/61
[2019-01-22] MEDS ORDERED: VENLAFAXINE HCL 150 MG ER CAPSULE PO SCH (09:00)
[2019-01-22] MEDS: LORazepam 2 MG TABLET PO PRN ×4 (09:45→21:40)
[2019-01-22] MEDS: GABAPENTIN 300 MG CAPSULE PO SCH ×3 (09:45→17:03)
[2019-01-22] MEDS: NICOTINE 14 MG/24 HOUR PATCH TD PRN (09:45)
[2019-01-22] MEDS: HALOPERIDOL 5 MG TABLET PO PRN ×2 (09:45→13:47)
[2019-01-22] MEDS: QUEtiapine FUMARATE 200 MG TABLET PO SCH (09:45)
[2019-01-22] MEDS: METHADONE HCL 10 MG/5 ML SOLUTION ORAL.SYG PO SCH (09:46)
[2019-01-22 16:30] VITALS: BP 125/75
[2019-01-22] MEDS: QUEtiapine FUMARATE 300 MG TABLET PO SCH (20:57)
[2019-01-23 08:36] VITALS: BP 117/68
[2019-01-23] MEDS: GABAPENTIN 300 MG CAPSULE PO SCH ×3 (09:00→16:06)
[2019-01-23] MEDS: QUEtiapine FUMARATE 200 MG TABLET PO SCH (09:00)
[2019-01-23] MEDS: VENLAFAXINE HCL 75 MG ER CAPSULE PO SCH (09:00)
[2019-01-23] MEDS: METHADONE HCL 10 MG/5 ML SOLUTION ORAL.SYG PO SCH (09:03)
[2019-01-23] MEDS: LORazepam 2 MG TABLET PO PRN ×3 (12:06→20:11)
[2019-01-23 16:10] VITALS: BP 106/56
[2019-01-23] MEDS: QUEtiapine FUMARATE 300 MG TABLET PO SCH (20:10)
[2019-01-24] MEDS: LORazepam 2 MG TABLET PO PRN ×4 (05:21→20:25)
[2019-01-24] MEDS: HALOPERIDOL 5 MG TABLET PO PRN (05:21)
[2019-01-24 05:23] VITALS: BP 114/69
[2019-01-24 08:10] VITALS: BP 116/69
[2019-01-24] MEDS: GABAPENTIN 300 MG CAPSULE PO SCH ×3 (08:32→16:11)
[2019-01-24] MEDS: VENLAFAXINE HCL 75 MG ER CAPSULE PO SCH (08:35)
[2019-01-24] MEDS: QUEtiapine FUMARATE 200 MG TABLET PO SCH (08:35)
[2019-01-24] MEDS: METHADONE HCL 10 MG/5 ML SOLUTION ORAL.SYG PO SCH (08:36)
[2019-01-24 18:00] VITALS: BP 119/74
[2019-01-24] MEDS: QUEtiapine FUMARATE 300 MG TABLET PO SCH (20:26)
[2019-01-24] MEDS: ZOLPIDEM TARTRATE 10 MG TABLET PO PRN (21:15)
[2019-01-25] MEDS: HALOPERIDOL 5 MG TABLET PO PRN (01:05)
[2019-01-25 08:44] VITALS: BP 107/75
[2019-01-25] MEDS: METHADONE HCL 10 MG/5 ML SOLUTION ORAL.SYG PO SCH (10:03)
[2019-01-25] MEDS: QUEtiapine FUMARATE 200 MG TABLET PO SCH (10:06)
[2019-01-25] MEDS: VENLAFAXINE HCL 75 MG ER CAPSULE PO SCH (10:06)
[2019-01-25] MEDS: GABAPENTIN 300 MG CAPSULE PO SCH ×3 (10:06→16:17)
[2019-01-25] MEDS: LORazepam 2 MG TABLET PO PRN ×3 (11:57→20:18)
[2019-01-25 16:00] VITALS: BP 117/71
[2019-01-25] MEDS: QUEtiapine FUMARATE 300 MG TABLET PO SCH (20:07)
[2019-01-26] MEDS: LORazepam 2 MG TABLET PO PRN ×3 (05:14→15:50)
[2019-01-26 09:22] VITALS: BP 109/63
[2019-01-26] MEDS: GABAPENTIN 300 MG CAPSULE PO SCH ×3 (09:22→16:27)
[2019-01-26] MEDS: VENLAFAXINE HCL 75 MG ER CAPSULE PO SCH (09:22)
[2019-01-26] MEDS: QUEtiapine FUMARATE 200 MG TABLET PO SCH (09:22)
[2019-01-26] MEDS: METHADONE HCL 10 MG/5 ML SOLUTION ORAL.SYG PO SCH (09:29)
[2019-01-26 16:52] VITALS: BP 123/79
[2019-01-26] MEDS: QUEtiapine FUMARATE 300 MG TABLET PO SCH (20:00)
[2019-01-26] MEDS: ZOLPIDEM TARTRATE 10 MG TABLET PO PRN (20:00)
[2019-01-27 08:30] VITALS: BP 113/70
[2019-01-27] MEDS: VENLAFAXINE HCL 75 MG ER CAPSULE PO SCH (08:41)
[2019-01-27] MEDS: QUEtiapine FUMARATE 200 MG TABLET PO SCH (08:42)
[2019-01-27] MEDS: GABAPENTIN 300 MG CAPSULE PO SCH ×3 (08:42→16:06)
[2019-01-27] MEDS: METHADONE HCL 10 MG/5 ML SOLUTION ORAL.SYG PO SCH (08:46)
[2019-01-27] MEDS: LORazepam 2 MG TABLET PO PRN ×2 (11:47→16:06)
[2019-01-27 16:00] VITALS: BP 140/96
[2019-01-27] MEDS: HALOPERIDOL 5 MG TABLET PO PRN (16:06)
[2019-01-27] MEDS: QUEtiapine FUMARATE 300 MG TABLET PO SCH (20:34)
[2019-01-28] MEDS: LORazepam 2 MG TABLET PO PRN ×3 (06:12→20:00)
[2019-01-28 08:25] VITALS: BP 109/86
[2019-01-28] MEDS: VENLAFAXINE HCL 75 MG ER CAPSULE PO SCH (08:36)
[2019-01-28] MEDS: METHADONE HCL 10 MG/5 ML SOLUTION ORAL.SYG PO SCH (08:36)
[2019-01-28] MEDS: GABAPENTIN 300 MG CAPSULE PO SCH ×3 (08:36→17:28)
[2019-01-28] MEDS: QUEtiapine FUMARATE 200 MG TABLET PO SCH (08:36)
[2019-01-28] MEDS: HALOPERIDOL 5 MG TABLET PO PRN (12:30)
[2019-01-28] MEDS ORDERED: VENL-67 PO (13:42)
[2019-01-28] MEDS ORDERED: METH10SO PO (13:43)
[2019-01-28 16:44] VITALS: BP 101/63
[2019-01-28] MEDS: QUEtiapine FUMARATE 300 MG TABLET PO SCH (20:00)
[2019-01-29] MEDS: LORazepam 2 MG TABLET PO PRN (06:06)
[2019-01-29 08:03] VITALS: BP 120/76
[2019-01-29] MEDS: METHADONE HCL 10 MG/5 ML SOLUTION ORAL.SYG PO SCH (09:20)
[2019-01-29] MEDS: QUEtiapine FUMARATE 200 MG TABLET PO SCH (09:22)
[2019-01-29] MEDS: GABAPENTIN 300 MG CAPSULE PO SCH ×2 (09:22→13:00)
[2019-01-29] MEDS: VENLAFAXINE HCL 75 MG ER CAPSULE PO SCH (09:22)
== END 2019-01-29 12:20 | disposition home or self-care (01) | DRG 751 ==
LOC: EMS 00:03 → 3EC 04:17
PROVIDERS: ATTEND Psychiatry & Neurology Psychiatry
DX: F33.2 Major depressive disorder, recurrent severe without psychotic features (principal); F11.20 Opioid dependence, uncomplicated; R45.851 Suicidal ideations; F25.9 Schizoaffective disorder, unspecified; G40.909 Epilepsy, unspecified, not intractable, without status epilepticus; B18.2 Chronic viral hepatitis C; D64.9 Anemia, unspecified; E78.5 Hyperlipidemia, unspecified; F10.10 Alcohol abuse, uncomplicated; K59.00 Constipation, unspecified; F17.210 Nicotine dependence, cigarettes, uncomplicated; F41.9 Anxiety disorder, unspecified; Z88.1 Allergy status to other antibiotic agents; Z71.41 Alcohol abuse counseling and surveillance of alcoholic; Z79.899 Other long term (current) drug therapy; Z91.5 Personal history of self-harm; Z71.51 Drug abuse counseling and surveillance of drug abuser
CPT/HCPCS: 83036; 84443; 87081; G0480

== ENCOUNTER 2019-01-31 19:36 | Emergency (ER) | payer MEDICAID, OTHER ==
[~2019-01-31] VITALS: Ht 185.4 cm; Wt 111.4 kg
[~2019-01-31 19:36] MED LIST changes: -ATOR20TA86 PO; -DOCU250C91 PO; +METH10SO PO; -SERT100T12 PO; +VENL-67 PO
[2019-01-31 20:46] LABS: BASOPHILS % (AUTO) 0.4 % (0.0-2.0); EOSINOPHILS % (AUTO) 1.2 % (1.0-6.0); HEMATOCRIT 42.2 % (41-53); HEMOGLOBIN 14.4 g/dL (13.5-17.5); LYMPHOCYTES # (AUTO) 2.1 K/uL (1.0-4.8); LYMPHOCYTES % (AUTO) 25.5 % (22.0-44.0); MEAN CORPUSCULAR HEMOGLOBIN 33.6 pg (26.0-34.0); MEAN CORPUSCULAR HGB CONC 34.2 G/dL (31.0-37.0); MEAN CORPUSCULAR VOLUME 98 fL (80-100); MONOCYTES # (AUTO) 0.9 K/uL (0.1-1.0); MONOCYTES % (AUTO) 10.5 % (2.0-9.0); NEUTROPHILS # (AUTO) 5.1 K/uL (1.8-7.7); NEUTROPHILS % (AUTO) 62.4 % (40.0-70.0); PLATELET COUNT (AUTO) 240 K/uL (150-450); RED BLOOD CELL COUNT(AUTO) 4.29 MIL/uL (4.50-5.90); RED CELL DISTRIBUTION WIDTH 12.9 % (11.5-14.5)
[2019-01-31 20:56] LABS: ANION GAP 9 mmol/L (8-16); CALCIUM, TOTAL 9.9 mg/dL (8.8-10.5); CARBON DIOXIDE 30 mmol/L (22-29); CHLORIDE 103 mmol/L (98-107); CREATININE 1.23 mg/dL (0.60-1.30); GLOMERULAR FILTR. RATE CALC > 60 mL/min (>60); GLUCOSE,RANDOM 91 mg/dL (70-110); POTASSIUM 3.7 mmol/L (3.5-5.1); SODIUM SERUM 142 mmol/L (136-145); UREA NITROGEN, BLOOD 22 mg/dL (7-18)
[2019-01-31 21:02] LABS: ALANINE AMINOTRANSFERASE 33 U/L (12-78); ALBUMIN 4.1 g/dL (3.4-5.0); ALKALINE PHOSPHATASE 110 U/L (46-116); ASPARTATE AMINOTRANSFERASE 39 U/L (15-37); BILIRUBIN,TOTAL 0.5 mg/dL (0.1-1.0); TOTAL PROTEIN, SERUM 7.7 g/dL (6.4-8.2)
[2019-01-31 21:27] LABS: AMPHET/METH SCREEN,URINE POSITIVE (NEGATIVE); BARBITURATE SCREEN, URINE NEGATIVE (NEGATIVE); BENZODIAZEPINES SCREEN,URINE POSITIVE (NEGATIVE); CANNABINOID SCREEN,URINE POSITIVE (NEGATIVE); COCAINE SCREEN,URINE NEGATIVE (NEGATIVE); METHADONE SCREEN, URINE POSITIVE (NEGATIVE); OPIATE SCREEN,URINE NEGATIVE (NEGATIVE)
[2019-01-31 21:28] LABS: PHENCYCLIDINE SCREEN,URINE NEGATIVE (NEGATIVE)
[2019-01-31] MEDS ORDERED: ChlordiazePOXIDE HCL 25 MG CAPSULE PO ONE (23:15)
[2019-02-01 00:44] VITALS: BP 111/76
== END 2019-02-01 01:26 | disposition left against medical advice (07) ==
LOC: EMS 19:38
DX: F32.9 Major depressive disorder, single episode, unspecified (principal); F10.10 Alcohol abuse, uncomplicated; F19.10 Other psychoactive substance abuse, uncomplicated; F41.9 Anxiety disorder, unspecified; F31.9 Bipolar disorder, unspecified; F12.90 Cannabis use, unspecified, uncomplicated; F13.10 Sedative, hypnotic or anxiolytic abuse, uncomplicated; Z88.5 Allergy status to narcotic agent
CPT/HCPCS: 36415; 80053; 80307; 85025; 99284; G0480

== ENCOUNTER 2019-02-01 11:01 | Inpatient (IN) | payer MEDICAID ==
[~2019-02-01] VITALS: Ht 182.9 cm; Wt 113.6 kg
[2019-02-01] VITALS (7 sets, daily range): BP systolic 100–126; BP diastolic 60–79
[2019-02-01] MEDS ORDERED: ZOLPIDEM TARTRATE 10 MG TABLET PO PRN (12:00)
[2019-02-01] MEDS ORDERED: HALOPERIDOL 5 MG TABLET PO PRN (12:00)
[2019-02-01] MEDS: LORazepam 2 MG TABLET PO PRN ×2 (13:28→17:44)
[2019-02-01] MEDS ORDERED: MAGNESIUM HYDROXIDE SUSPENSION 30 ML UDCUP PO PRN (14:15)
[2019-02-01] MEDS ORDERED: MAG HYDROX/AL HYDROX/SIMETH ES 30 ML SUSPENSION UDCUP PO PRN (14:15)
[2019-02-01] MEDS ORDERED: PERMETHRIN 5% 60 GM CREAM TP ONE (14:15)
[2019-02-01] MEDS ORDERED: LOPERAMIDE HCL 2 MG CAPSULE PO PRN (14:15)
[2019-02-01] MEDS ORDERED: PETROLATUM,WHITE 28 GM JELLY TP PRN (14:15)
[2019-02-01] MEDS ORDERED: NICOTINE 14 MG/24 HOUR PATCH TD PRN (14:15)
[2019-02-01] MEDS ORDERED: GuaiFENesin/D-METHORPHAN [SUGAR-FREE] 200-20MG/10 ML SYRUP UDCUP PO PRN (14:15)
[2019-02-01] MEDS ORDERED: CloNIDine HCL 0.1 MG TABLET PO PRN (14:15)
[2019-02-01] MEDS ORDERED: ALBUTEROL SULFATE HFA 90 MCG/PUFF 8 GM INHALER IH PRN (14:15)
[2019-02-01] MEDS ORDERED: DOCUSATE SODIUM 100 MG CAPSULE PO PRN (14:15)
[2019-02-01] MEDS ORDERED: ACETAMINOPHEN 325 MG TABLET PO PRN (14:15)
[2019-02-01] MEDS ORDERED: ONDANSETRON HCL 4 MG TABLET PO PRN (14:15)
[2019-02-01] MEDS ORDERED: IBUPROFEN 400 MG TABLET PO PRN (14:15)
[2019-02-02] VITALS (8 sets, daily range): BP systolic 15–123; BP diastolic 59–87
[2019-02-02 08:08] LABS: BASOPHILS % (AUTO) 0.6 % (0.0-2.0); EOSINOPHILS % (AUTO) 2.2 % (1.0-6.0); HEMATOCRIT 39.1 % (41-53); HEMOGLOBIN 13.1 g/dL (13.5-17.5); LYMPHOCYTES # (AUTO) 2.4 K/uL (1.0-4.8); LYMPHOCYTES % (AUTO) 44.7 % (22.0-44.0); MEAN CORPUSCULAR HGB CONC 33.5 G/dL (31.0-37.0); MEAN CORPUSCULAR VOLUME 99 fL (80-100); MONOCYTES # (AUTO) 0.6 K/uL (0.1-1.0); NEUTROPHILS # (AUTO) 2.2 K/uL (1.8-7.7); NEUTROPHILS % (AUTO) 41.5 % (40.0-70.0); PLATELET COUNT (AUTO) 214 K/uL (150-450); RED BLOOD CELL COUNT(AUTO) 3.96 MIL/uL (4.50-5.90); RED CELL DISTRIBUTION WIDTH 12.7 % (11.5-14.5)
[2019-02-02] MEDS: METHADONE HCL 10 MG/5 ML SOLUTION ORAL.SYG PO SCH (08:33)
[2019-02-02 08:36] LABS: HEMOGLOBIN A1C 5.6 % (4.5-6.2)
[2019-02-02 08:39] LABS: ALANINE AMINOTRANSFERASE 29 U/L (12-78); ALBUMIN 3.1 g/dL (3.4-5.0); ALKALINE PHOSPHATASE 103 U/L (46-116); ANION GAP 5 mmol/L (8-16); ASPARTATE AMINOTRANSFERASE 31 U/L (15-37); BILIRUBIN,TOTAL 0.2 mg/dL (0.1-1.0); CALCIUM, TOTAL 9.2 mg/dL (8.8-10.5); CARBON DIOXIDE 31 mmol/L (22-29); CHLORIDE 104 mmol/L (98-107); CHOL/HDL RATIO 5.9 (4.2-7.3); CHOLESTEROL 213 mg/dL (131-200); CREATININE 0.91 mg/dL (0.60-1.30); FREE T4 (FREE THYROXINE) 0.86 ng/dL (0.76-1.46); GLOMERULAR FILTR. RATE CALC > 60 mL/min (>60); GLUCOSE,RANDOM 79 mg/dL (70-110); HDL CHOLESTEROL 36 mg/dL (40-60); LDL CHOL (CALC.) 137 mg/dL (0-130); POTASSIUM 3.9 mmol/L (3.5-5.1); SODIUM SERUM 140 mmol/L (136-145); THYROID STIMULATING HORMONE 1.19 uIU/mL (0.36-3.74); TOTAL PROTEIN, SERUM 5.8 g/dL (6.4-8.2); TRIGLYCERIDES 198 mg/dL (15-150); UREA NITROGEN, BLOOD 20 mg/dL (7-18)
[2019-02-02] MEDS: LORazepam 2 MG TABLET PO PRN (10:18)
[2019-02-02] MEDS: VENLAFAXINE HCL 75 MG ER CAPSULE PO SCH (13:43)
[2019-02-02] MEDS ORDERED: LORazepam 2 MG TABLET PO PRN (14:18)
[2019-02-02] MEDS: GABAPENTIN 300 MG CAPSULE PO SCH (16:30)
[2019-02-02] MEDS: LORazepam 1 MG TABLET PO PRN (18:35)
[2019-02-02] MEDS ORDERED: QUEtiapine FUMARATE 300 MG TABLET PO SCH (21:00)
[2019-02-03] VITALS: BP 114/68
[2019-02-03 00:01] VITALS: BP 114/68
[2019-02-03] MEDS ORDERED: FERROUS SULFATE 325 MG EC TABLET PO SCH (07:00)
[2019-02-03 08:02] VITALS: BP 113/68
[2019-02-03] MEDS: GABAPENTIN 300 MG CAPSULE PO SCH ×2 (08:21→12:21)
[2019-02-03] MEDS: VENLAFAXINE HCL 75 MG ER CAPSULE PO SCH (08:21)
[2019-02-03] MEDS: METHADONE HCL 10 MG/5 ML SOLUTION ORAL.SYG PO SCH (08:23)
[2019-02-03] MEDS ORDERED: QUEtiapine FUMARATE 200 MG TABLET PO SCH (09:00)
[2019-02-03] MEDS: LORazepam 1 MG TABLET PO PRN (09:57)
[2019-02-03] MEDS ORDERED: FERR-89 PO (12:48)
== END 2019-02-03 13:45 | disposition home or self-care (01) | DRG 750 ==
LOC: B2S 12:18
PROVIDERS: ADMIT Psychiatry & Neurology Psychiatry; ATTEND Psychiatry & Neurology Psychiatry
DX: F25.1 Schizoaffective disorder, depressive type (principal); F11.20 Opioid dependence, uncomplicated; E78.5 Hyperlipidemia, unspecified; D64.9 Anemia, unspecified; B18.2 Chronic viral hepatitis C; B86 Scabies; G40.909 Epilepsy, unspecified, not intractable, without status epilepticus; F10.10 Alcohol abuse, uncomplicated; K59.00 Constipation, unspecified; Z59.0 Homelessness; Z79.899 Other long term (current) drug therapy; Z91.5 Personal history of self-harm
CPT/HCPCS: 83036; 84439; 84443; 87081

== ENCOUNTER 2019-02-22 13:51 | Inpatient (IN) | payer MEDICAID ==
[~2019-02-22] VITALS: Ht 182.9 cm; Wt 111.6 kg
[~2019-02-22 13:51] MED LIST changes: +FERR-89 PO
[2019-02-22 14:20] VITALS: BP 123/75
[2019-02-22] MEDS ORDERED: METH10SO PO (14:57)
[2019-02-22] MEDS ORDERED: ZOLPIDEM TARTRATE 10 MG TABLET PO PRN (15:15)
[2019-02-22] MEDS ORDERED: LOPERAMIDE HCL 2 MG CAPSULE PO PRN (15:53)
[2019-02-22] MEDS ORDERED: ACETAMINOPHEN 325 MG TABLET PO PRN (16:00)
[2019-02-22] MEDS ORDERED: PETROLATUM,WHITE 28 GM JELLY TP PRN (16:00)
[2019-02-22] MEDS ORDERED: DOCUSATE SODIUM 100 MG CAPSULE PO PRN (16:00)
[2019-02-22] MEDS ORDERED: MAG HYDROX/AL HYDROX/SIMETH ES 30 ML SUSPENSION UDCUP PO PRN (16:00)
[2019-02-22] MEDS ORDERED: MAGNESIUM HYDROXIDE SUSPENSION 30 ML UDCUP PO PRN (16:00)
[2019-02-22] MEDS ORDERED: NICOTINE 14 MG/24 HOUR PATCH TD PRN (16:00)
[2019-02-22] MEDS ORDERED: GuaiFENesin/D-METHORPHAN [SUGAR-FREE] 200-20MG/10 ML SYRUP UDCUP PO PRN (16:00)
[2019-02-22] MEDS ORDERED: ALBUTEROL SULFATE HFA 90 MCG/PUFF 8 GM INHALER IH PRN (16:00)
[2019-02-22 16:14] VITALS: BP 138/86
[2019-02-22] MEDS: GABAPENTIN 300 MG CAPSULE PO SCH (16:15)
[2019-02-22] MEDS: LORazepam 2 MG TABLET PO PRN ×2 (16:15→20:55)
[2019-02-22] MEDS: NICOTINE 14 MG/24 HOUR PATCH TD SCH (17:24)
[2019-02-22] MEDS: QUEtiapine FUMARATE 300 MG TABLET PO SCH (20:55)
[2019-02-22] MEDS: HALOPERIDOL 5 MG TABLET PO PRN (23:49)
[2019-02-23] VITALS: BP 133/89
[2019-02-23 08:21] LABS: BASOPHILS % (AUTO) 0.7 % (0.0-2.0); EOSINOPHILS % (AUTO) 2.1 % (1.0-6.0); HEMATOCRIT 38.6 % (41-53); HEMOGLOBIN 12.9 g/dL (13.5-17.5); HEMOGLOBIN A1C 5.7 % (4.5-6.2); LYMPHOCYTES # (AUTO) 1.5 K/uL (1.0-4.8); LYMPHOCYTES % (AUTO) 28.2 % (22.0-44.0); MEAN CORPUSCULAR HEMOGLOBIN 32.7 pg (26.0-34.0); MEAN CORPUSCULAR HGB CONC 33.5 G/dL (31.0-37.0); MEAN CORPUSCULAR VOLUME 98 fL (80-100); MONOCYTES # (AUTO) 0.6 K/uL (0.1-1.0); MONOCYTES % (AUTO) 11.4 % (2.0-9.0); NEUTROPHILS % (AUTO) 57.6 % (40.0-70.0); PLATELET COUNT (AUTO) 172 K/uL (150-450); RED BLOOD CELL COUNT(AUTO) 3.95 MIL/uL (4.50-5.90); RED CELL DISTRIBUTION WIDTH 12.6 % (11.5-14.5)
[2019-02-23 08:24] VITALS: BP 104/72
[2019-02-23 08:33] LABS: ALANINE AMINOTRANSFERASE 45 U/L (12-78); ALBUMIN 3.7 g/dL (3.4-5.0); ALKALINE PHOSPHATASE 89 U/L (46-116); ANION GAP 9 mmol/L (8-16); ASPARTATE AMINOTRANSFERASE 62 U/L (15-37); BILIRUBIN,TOTAL 0.6 mg/dL (0.1-1.0); CALCIUM, TOTAL 8.8 mg/dL (8.8-10.5); CARBON DIOXIDE 28 mmol/L (22-29); CHLORIDE 105 mmol/L (98-107); CHOL/HDL RATIO 2.9 (4.2-7.3); CHOLESTEROL 165 mg/dL (131-200); CREATININE 1.01 mg/dL (0.60-1.30); FREE T4 (FREE THYROXINE) 1.35 ng/dL (0.76-1.46); GLOMERULAR FILTR. RATE CALC > 60 mL/min (>60); GLUCOSE,RANDOM 79 mg/dL (70-110); HDL CHOLESTEROL 57 mg/dL (40-60); LDL CHOL (CALC.) 97 mg/dL (0-130); POTASSIUM 3.7 mmol/L (3.5-5.1); SODIUM SERUM 142 mmol/L (136-145); THYROID STIMULATING HORMONE 1.91 uIU/mL (0.36-3.74); TOTAL PROTEIN, SERUM 6.5 g/dL (6.4-8.2); TRIGLYCERIDES 53 mg/dL (15-150)
[2019-02-23 08:40] LABS: UREA NITROGEN, BLOOD 30 mg/dL (7-18)
[2019-02-23] MEDS: VENLAFAXINE HCL 75 MG ER CAPSULE PO SCH (08:46)
[2019-02-23] MEDS: GABAPENTIN 300 MG CAPSULE PO SCH ×3 (08:46→17:22)
[2019-02-23] MEDS: QUEtiapine FUMARATE 200 MG TABLET PO SCH (08:46)
[2019-02-23 08:47] LABS: AMPHET/METH SCREEN,URINE POSITIVE (NEGATIVE); BARBITURATE SCREEN, URINE NEGATIVE (NEGATIVE); BENZODIAZEPINES SCREEN,URINE POSITIVE (NEGATIVE); CANNABINOID SCREEN,URINE POSITIVE (NEGATIVE); COCAINE SCREEN,URINE NEGATIVE (NEGATIVE); METHADONE SCREEN, URINE POSITIVE (NEGATIVE); OPIATE SCREEN,URINE POSITIVE (NEGATIVE); PHENCYCLIDINE SCREEN,URINE NEGATIVE (NEGATIVE)
[2019-02-23 09:07] LABS: APPEARANCE,URINE TURBID (CLEAR); GLUCOSE, URINE (UA) NEGATIVE (NEGATIVE); KETONES,URINE TRACE mg/dL (NEGATIVE); LEUKOCYTE ESTERASE ,URINE SMALL (NEGATIVE); NITRATE,URINE NEGATIVE (NEGATIVE); OCCULT BLOOD,URINE NEGATIVE (NEGATIVE); PROTEIN,URINE TRACE (NEGATIVE)
[2019-02-23 09:09] LABS: BILIRUBIN,URINE PRELIM. POSITIVE (NEGATIVE)
[2019-02-23] MEDS: NICOTINE 14 MG/24 HOUR PATCH TD SCH (09:13)
[2019-02-23 09:32] LABS: BACTERIA,URINE Many /HPF (None Seen); CALCIUM OXALATE CRYSTALS,UR Few /LPF (None Seen); RBC,URINE 0-2 /HPF (0-2); SQUAMOUS EPITHELIAL CELL,UR Rare /LPF (None Seen)
[2019-02-23 09:33] LABS: AMORPHOUS SEDIMENT,UR Moderate /LPF (None Seen)
[2019-02-23] MEDS: METHADONE HCL 10 MG/5 ML SOLUTION ORAL.SYG PO SCH (12:35)
[2019-02-23 13:47] VITALS: BP 100/64
[2019-02-23 16:38] VITALS: BP 121/82
[2019-02-23] MEDS: FERROUS SULFATE 325 MG EC TABLET PO SCH (17:22)
[2019-02-23] MEDS: QUEtiapine FUMARATE 300 MG TABLET PO SCH (20:43)
[2019-02-24 06:24] VITALS: BP 110/65
[2019-02-24] MEDS: FERROUS SULFATE 325 MG EC TABLET PO SCH ×2 (06:45→16:12)
[2019-02-24] MEDS: METHADONE HCL 10 MG/5 ML SOLUTION ORAL.SYG PO SCH (08:23)
[2019-02-24] MEDS: QUEtiapine FUMARATE 200 MG TABLET PO SCH (08:26)
[2019-02-24] MEDS: NICOTINE 14 MG/24 HOUR PATCH TD SCH (08:26)
[2019-02-24] MEDS: GABAPENTIN 300 MG CAPSULE PO SCH ×3 (08:26→16:12)
[2019-02-24] MEDS: VENLAFAXINE HCL 75 MG ER CAPSULE PO SCH (08:26)
[2019-02-24 08:27] VITALS: BP 105/61
[2019-02-24] MEDS: LORazepam 2 MG TABLET PO PRN ×2 (09:34→14:07)
[2019-02-24] MEDS: HALOPERIDOL 5 MG TABLET PO PRN (14:07)
[2019-02-24] MEDS: QUEtiapine FUMARATE 300 MG TABLET PO SCH (20:18)
[2019-02-24 20:35] VITALS: BP 122/76
[2019-02-25 01:12] VITALS: BP 101/54
[2019-02-25] MEDS: FERROUS SULFATE 325 MG EC TABLET PO SCH ×2 (06:24→16:10)
[2019-02-25 08:16] VITALS: BP 112/70
[2019-02-25] MEDS: VENLAFAXINE HCL 75 MG ER CAPSULE PO SCH (08:24)
[2019-02-25] MEDS: QUEtiapine FUMARATE 200 MG TABLET PO SCH (08:24)
[2019-02-25] MEDS: NICOTINE 14 MG/24 HOUR PATCH TD SCH (08:24)
[2019-02-25] MEDS: GABAPENTIN 300 MG CAPSULE PO SCH ×3 (08:24→16:10)
[2019-02-25] MEDS: METHADONE HCL 10 MG/5 ML SOLUTION ORAL.SYG PO SCH (08:26)
[2019-02-25] MEDS: HALOPERIDOL 5 MG TABLET PO PRN ×2 (09:59→16:37)
[2019-02-25] MEDS: LORazepam 2 MG TABLET PO PRN ×2 (09:59→16:36)
[2019-02-25 16:24] VITALS: BP 116/67
[2019-02-25] MEDS: QUEtiapine FUMARATE 300 MG TABLET PO SCH (20:27)
[2019-02-26] MEDS: FERROUS SULFATE 325 MG EC TABLET PO SCH ×2 (06:22→16:08)
[2019-02-26 06:45] VITALS: BP 113/60
[2019-02-26] MEDS: GABAPENTIN 300 MG CAPSULE PO SCH ×3 (08:46→16:08)
[2019-02-26] MEDS: VENLAFAXINE HCL 75 MG ER CAPSULE PO SCH (08:46)
[2019-02-26] MEDS: NICOTINE 14 MG/24 HOUR PATCH TD SCH (08:46)
[2019-02-26] MEDS: QUEtiapine FUMARATE 200 MG TABLET PO SCH (08:46)
[2019-02-26] MEDS: METHADONE HCL 10 MG/5 ML SOLUTION ORAL.SYG PO SCH (08:57)
[2019-02-26 09:08] VITALS: BP 110/65
[2019-02-26] MEDS: LORazepam 2 MG TABLET PO PRN ×2 (11:12→17:00)
[2019-02-26 12:40] VITALS: BP 140/75
[2019-02-26] MEDS: IBUPROFEN 400 MG TABLET PO PRN (12:40)
[2019-02-26 16:21] VITALS: BP 121/73
[2019-02-26] MEDS: QUEtiapine FUMARATE 300 MG TABLET PO SCH (20:19)
[2019-02-27 05:47] VITALS: BP 110/60
[2019-02-27] MEDS: FERROUS SULFATE 325 MG EC TABLET PO SCH ×2 (07:02→16:51)
[2019-02-27 08:28] VITALS: BP 118/72
[2019-02-27] MEDS: QUEtiapine FUMARATE 200 MG TABLET PO SCH (08:44)
[2019-02-27] MEDS: VENLAFAXINE HCL 75 MG ER CAPSULE PO SCH (08:44)
[2019-02-27] MEDS: GABAPENTIN 300 MG CAPSULE PO SCH ×3 (08:44→16:51)
[2019-02-27] MEDS: NICOTINE 14 MG/24 HOUR PATCH TD SCH (08:44)
[2019-02-27] MEDS: METHADONE HCL 10 MG/5 ML SOLUTION ORAL.SYG PO SCH (08:47)
[2019-02-27] MEDS: HALOPERIDOL 5 MG TABLET PO PRN ×2 (10:03→14:34)
[2019-02-27] MEDS: LORazepam 2 MG TABLET PO PRN ×3 (10:03→20:17)
[2019-02-27 14:34] VITALS: BP 121/79
[2019-02-27] MEDS: IBUPROFEN 400 MG TABLET PO PRN (14:34)
[2019-02-27 16:05] VITALS: BP 115/79
[2019-02-27] MEDS: QUEtiapine FUMARATE 300 MG TABLET PO SCH (20:17)
[2019-02-28 00:49] VITALS: BP 100/60
[2019-02-28] MEDS: LORazepam 2 MG TABLET PO PRN ×3 (06:41→16:28)
[2019-02-28] MEDS: FERROUS SULFATE 325 MG EC TABLET PO SCH ×2 (07:20→16:07)
[2019-02-28] MEDS: NICOTINE 14 MG/24 HOUR PATCH TD SCH (08:39)
[2019-02-28] MEDS: VENLAFAXINE HCL 75 MG ER CAPSULE PO SCH (08:39)
[2019-02-28] MEDS: QUEtiapine FUMARATE 200 MG TABLET PO SCH (08:39)
[2019-02-28] MEDS: GABAPENTIN 300 MG CAPSULE PO SCH ×3 (08:39→16:07)
[2019-02-28 08:40] VITALS: BP 115/72
[2019-02-28] MEDS: METHADONE HCL 10 MG/5 ML SOLUTION ORAL.SYG PO SCH (08:42)
[2019-02-28 16:05] VITALS: BP 111/74
[2019-02-28] MEDS: QUEtiapine FUMARATE 300 MG TABLET PO SCH (20:19)
[2019-03-01 00:45] VITALS: BP 116/66
[2019-03-01] MEDS: LORazepam 2 MG TABLET PO PRN ×2 (07:01→11:15)
[2019-03-01] MEDS: FERROUS SULFATE 325 MG EC TABLET PO SCH ×2 (07:03→16:10)
[2019-03-01 08:33] VITALS: BP 126/62
[2019-03-01] MEDS: METHADONE HCL 10 MG/5 ML SOLUTION ORAL.SYG PO SCH (09:05)
[2019-03-01] MEDS: QUEtiapine FUMARATE 200 MG TABLET PO SCH (09:06)
[2019-03-01] MEDS: VENLAFAXINE HCL 75 MG ER CAPSULE PO SCH (09:06)
[2019-03-01] MEDS: GABAPENTIN 300 MG CAPSULE PO SCH ×3 (09:06→16:10)
[2019-03-01] MEDS: NICOTINE 14 MG/24 HOUR PATCH TD SCH (09:07)
[2019-03-01] MEDS: HALOPERIDOL 5 MG TABLET PO PRN (13:48)
[2019-03-01 16:17] VITALS: BP 114/63
[2019-03-01] MEDS: PRAZOSIN HCL 1 MG CAPSULE PO SCH (20:17)
[2019-03-01] MEDS: QUEtiapine FUMARATE 300 MG TABLET PO SCH (20:17)
[2019-03-02] MEDS: FERROUS SULFATE 325 MG EC TABLET PO SCH ×2 (06:08→16:10)
[2019-03-02 06:15] VITALS: BP 124/84
[2019-03-02] MEDS: HALOPERIDOL 5 MG TABLET PO PRN ×2 (06:15→13:48)
[2019-03-02] MEDS: LORazepam 2 MG TABLET PO PRN ×3 (06:15→14:54)
[2019-03-02 08:00] VITALS: BP 123/70
[2019-03-02] MEDS: QUEtiapine FUMARATE 200 MG TABLET PO SCH (08:16)
[2019-03-02] MEDS: VENLAFAXINE HCL 75 MG ER CAPSULE PO SCH (08:16)
[2019-03-02] MEDS: NICOTINE 14 MG/24 HOUR PATCH TD SCH (08:16)
[2019-03-02] MEDS: GABAPENTIN 300 MG CAPSULE PO SCH ×3 (08:16→16:09)
[2019-03-02] MEDS: METHADONE HCL 10 MG/5 ML SOLUTION ORAL.SYG PO SCH (08:17)
[2019-03-02 08:27] VITALS: BP 125/66
[2019-03-02 16:13] VITALS: BP 127/72
[2019-03-02] MEDS: PRAZOSIN HCL 1 MG CAPSULE PO SCH (20:22)
[2019-03-02] MEDS: QUEtiapine FUMARATE 300 MG TABLET PO SCH (20:22)
[2019-03-03 00:43] VITALS: BP 113/62
[2019-03-03] MEDS: FERROUS SULFATE 325 MG EC TABLET PO SCH ×2 (07:00→16:04)
[2019-03-03 08:08] VITALS: BP 134/76
[2019-03-03] MEDS: QUEtiapine FUMARATE 200 MG TABLET PO SCH (09:03)
[2019-03-03] MEDS: VENLAFAXINE HCL 75 MG ER CAPSULE PO SCH (09:03)
[2019-03-03] MEDS: NICOTINE 14 MG/24 HOUR PATCH TD SCH (09:05)
[2019-03-03] MEDS: GABAPENTIN 300 MG CAPSULE PO SCH ×3 (09:07→16:04)
[2019-03-03] MEDS: METHADONE HCL 10 MG/5 ML SOLUTION ORAL.SYG PO SCH (09:08)
[2019-03-03 10:49] VITALS: BP 122/60
[2019-03-03] MEDS: LORazepam 2 MG TABLET PO PRN ×2 (10:50→16:04)
[2019-03-03 16:10] VITALS: BP 118/70
[2019-03-03] MEDS: HALOPERIDOL 5 MG TABLET PO PRN (16:16)
[2019-03-03] MEDS: PRAZOSIN HCL 1 MG CAPSULE PO SCH (20:14)
[2019-03-03] MEDS: QUEtiapine FUMARATE 300 MG TABLET PO SCH (20:14)
[2019-03-04 03:00] VITALS: BP 116/78
[2019-03-04] MEDS: LORazepam 2 MG TABLET PO PRN ×3 (03:09→15:37)
[2019-03-04] MEDS: FERROUS SULFATE 325 MG EC TABLET PO SCH ×2 (06:47→16:57)
[2019-03-04] MEDS: VENLAFAXINE HCL 75 MG ER CAPSULE PO SCH (07:49)
[2019-03-04] MEDS: QUEtiapine FUMARATE 200 MG TABLET PO SCH (07:49)
[2019-03-04] MEDS: METHADONE HCL 10 MG/5 ML SOLUTION ORAL.SYG PO SCH (07:49)
[2019-03-04] MEDS: NICOTINE 14 MG/24 HOUR PATCH TD SCH (07:50)
[2019-03-04] MEDS: GABAPENTIN 300 MG CAPSULE PO SCH ×3 (07:50→16:57)
[2019-03-04 08:11] VITALS: BP 105/60
[2019-03-04] MEDS: HALOPERIDOL 5 MG TABLET PO PRN (13:08)
[2019-03-04 16:30] VITALS: BP 114/65
[2019-03-04] MEDS: QUEtiapine FUMARATE 300 MG TABLET PO SCH (20:15)
[2019-03-04] MEDS: PRAZOSIN HCL 1 MG CAPSULE PO SCH (20:15)
[2019-03-05 05:15] VITALS: BP 138/88
[2019-03-05] MEDS: HALOPERIDOL 5 MG TABLET PO PRN ×3 (05:19→19:12)
[2019-03-05] MEDS: LORazepam 2 MG TABLET PO PRN ×4 (05:19→19:12)
[2019-03-05] MEDS: FERROUS SULFATE 325 MG EC TABLET PO SCH ×2 (06:57→16:25)
[2019-03-05 08:04] VITALS: BP 103/64
[2019-03-05] MEDS: QUEtiapine FUMARATE 200 MG TABLET PO SCH (08:25)
[2019-03-05] MEDS: GABAPENTIN 300 MG CAPSULE PO SCH ×3 (08:25→16:25)
[2019-03-05] MEDS: VENLAFAXINE HCL 75 MG ER CAPSULE PO SCH (08:25)
[2019-03-05] MEDS: METHADONE HCL 10 MG/5 ML SOLUTION ORAL.SYG PO SCH (08:26)
[2019-03-05] MEDS: NICOTINE 14 MG/24 HOUR PATCH TD SCH (08:27)
[2019-03-05 09:35] VITALS: BP 115/68
[2019-03-05 16:15] VITALS: BP 109/69
[2019-03-05] MEDS: QUEtiapine FUMARATE 300 MG TABLET PO SCH (20:21)
[2019-03-05] MEDS: PRAZOSIN HCL 1 MG CAPSULE PO SCH (20:21)
[2019-03-06 06:16] VITALS: BP 108/63
[2019-03-06] MEDS: FERROUS SULFATE 325 MG EC TABLET PO SCH ×2 (06:51→17:09)
[2019-03-06 08:34] VITALS: BP 105/61
[2019-03-06] MEDS: NICOTINE 14 MG/24 HOUR PATCH TD SCH (08:34)
[2019-03-06] MEDS: VENLAFAXINE HCL 75 MG ER CAPSULE PO SCH (08:34)
[2019-03-06] MEDS: METHADONE HCL 10 MG/5 ML SOLUTION ORAL.SYG PO SCH (08:35)
[2019-03-06] MEDS: QUEtiapine FUMARATE 200 MG TABLET PO SCH (08:35)
[2019-03-06] MEDS: GABAPENTIN 300 MG CAPSULE PO SCH ×3 (08:35→16:59)
[2019-03-06] MEDS: LORazepam 2 MG TABLET PO PRN ×2 (09:39→14:31)
[2019-03-06] MEDS: HALOPERIDOL 5 MG TABLET PO PRN (14:31)
[2019-03-06 16:18] VITALS: BP 110/71
[2019-03-06] MEDS: QUEtiapine FUMARATE 300 MG TABLET PO SCH (20:19)
[2019-03-06] MEDS: PRAZOSIN HCL 1 MG CAPSULE PO SCH (20:19)
[2019-03-07 06:10] VITALS: BP 115/67
[2019-03-07] MEDS: FERROUS SULFATE 325 MG EC TABLET PO SCH ×2 (06:40→16:11)
[2019-03-07] MEDS: LORazepam 2 MG TABLET PO PRN ×3 (06:40→17:20)
[2019-03-07 08:15] VITALS: BP 130/70
[2019-03-07] MEDS: NICOTINE 14 MG/24 HOUR PATCH TD SCH (08:31)
[2019-03-07] MEDS: VENLAFAXINE HCL 75 MG ER CAPSULE PO SCH (08:32)
[2019-03-07] MEDS: GABAPENTIN 300 MG CAPSULE PO SCH ×3 (08:32→16:12)
[2019-03-07] MEDS: QUEtiapine FUMARATE 200 MG TABLET PO SCH (08:32)
[2019-03-07] MEDS: METHADONE HCL 10 MG/5 ML SOLUTION ORAL.SYG PO SCH (08:33)
[2019-03-07] MEDS: HALOPERIDOL 5 MG TABLET PO PRN ×2 (11:08→17:20)
[2019-03-07 17:20] VITALS: BP 110/61
[2019-03-07] MEDS: QUEtiapine FUMARATE 300 MG TABLET PO SCH (20:09)
[2019-03-07] MEDS: PRAZOSIN HCL 1 MG CAPSULE PO SCH (20:09)
[2019-03-08 05:43] VITALS: BP 150/89
[2019-03-08] MEDS: LORazepam 2 MG TABLET PO PRN ×2 (05:43→11:18)
[2019-03-08] MEDS: FERROUS SULFATE 325 MG EC TABLET PO SCH ×2 (06:15→16:23)
[2019-03-08 06:35] VITALS: BP 122/75
[2019-03-08 08:35] VITALS: BP 130/78
[2019-03-08] MEDS: GABAPENTIN 300 MG CAPSULE PO SCH ×3 (09:03→16:22)
[2019-03-08] MEDS: QUEtiapine FUMARATE 200 MG TABLET PO SCH (09:03)
[2019-03-08] MEDS: VENLAFAXINE HCL 75 MG ER CAPSULE PO SCH (09:03)
[2019-03-08] MEDS: METHADONE HCL 10 MG/5 ML SOLUTION ORAL.SYG PO SCH (09:07)
[2019-03-08] MEDS: NICOTINE 14 MG/24 HOUR PATCH TD SCH (09:09)
[2019-03-08] MEDS: HALOPERIDOL 5 MG TABLET PO PRN (11:18)
[2019-03-08 16:07] VITALS: BP 117/71
[2019-03-08] MEDS: PRAZOSIN HCL 1 MG CAPSULE PO SCH (20:15)
[2019-03-08] MEDS: QUEtiapine FUMARATE 300 MG TABLET PO SCH (20:15)
[2019-03-09 06:09] VITALS: BP 105/76
[2019-03-09] MEDS: FERROUS SULFATE 325 MG EC TABLET PO SCH ×2 (06:22→16:40)
[2019-03-09] MEDS: LORazepam 2 MG TABLET PO PRN ×2 (06:30→11:11)
[2019-03-09 08:15] VITALS: BP 117/64
[2019-03-09] MEDS: GABAPENTIN 300 MG CAPSULE PO SCH ×3 (09:30→16:40)
[2019-03-09] MEDS: QUEtiapine FUMARATE 200 MG TABLET PO SCH (09:30)
[2019-03-09] MEDS: VENLAFAXINE HCL 75 MG ER CAPSULE PO SCH (09:30)
[2019-03-09] MEDS: NICOTINE 14 MG/24 HOUR PATCH TD SCH (09:30)
[2019-03-09] MEDS: METHADONE HCL 10 MG/5 ML SOLUTION ORAL.SYG PO SCH (09:33)
[2019-03-09 11:10] VITALS: BP 115/75
[2019-03-09] MEDS: HALOPERIDOL 5 MG TABLET PO PRN (11:11)
[2019-03-09 16:12] VITALS: BP 133/70
[2019-03-09] MEDS: PRAZOSIN HCL 1 MG CAPSULE PO SCH (20:11)
[2019-03-09] MEDS: QUEtiapine FUMARATE 300 MG TABLET PO SCH (20:12)
[2019-03-09] MEDS: LORazepam 0.5 MG TABLET PO PRN (21:00)
[2019-03-10 00:52] VITALS: BP 116/55
[2019-03-10] MEDS: FERROUS SULFATE 325 MG EC TABLET PO SCH ×2 (06:33→16:57)
[2019-03-10] MEDS: LORazepam 0.5 MG TABLET PO PRN ×2 (06:42→13:11)
[2019-03-10 08:28] VITALS: BP 106/71
[2019-03-10] MEDS: GABAPENTIN 300 MG CAPSULE PO SCH ×3 (09:20→16:57)
[2019-03-10] MEDS: QUEtiapine FUMARATE 200 MG TABLET PO SCH (09:21)
[2019-03-10] MEDS: NICOTINE 14 MG/24 HOUR PATCH TD SCH (09:21)
[2019-03-10] MEDS: VENLAFAXINE HCL 75 MG ER CAPSULE PO SCH (09:21)
[2019-03-10] MEDS: METHADONE HCL 10 MG/5 ML SOLUTION ORAL.SYG PO SCH (09:22)
[2019-03-10] MEDS: HALOPERIDOL 5 MG TABLET PO PRN ×2 (12:19→17:22)
[2019-03-10 16:14] VITALS: BP 109/64
[2019-03-10 20:35] VITALS: BP 112/62
[2019-03-10] MEDS: PRAZOSIN HCL 1 MG CAPSULE PO SCH (20:38)
[2019-03-10] MEDS: QUEtiapine FUMARATE 300 MG TABLET PO SCH (20:38)
[2019-03-11 01:17] VITALS: BP 100/55
[2019-03-11] MEDS: FERROUS SULFATE 325 MG EC TABLET PO SCH ×2 (06:52→16:17)
[2019-03-11] MEDS: LORazepam 0.5 MG TABLET PO PRN ×3 (06:53→13:00)
[2019-03-11 08:26] VITALS: BP 121/67
[2019-03-11] MEDS: GABAPENTIN 300 MG CAPSULE PO SCH ×3 (08:59→16:17)
[2019-03-11] MEDS: QUEtiapine FUMARATE 200 MG TABLET PO SCH (08:59)
[2019-03-11] MEDS: NICOTINE 14 MG/24 HOUR PATCH TD SCH (08:59)
[2019-03-11] MEDS: VENLAFAXINE HCL 75 MG ER CAPSULE PO SCH (08:59)
[2019-03-11] MEDS: METHADONE HCL 10 MG/5 ML SOLUTION ORAL.SYG PO SCH (09:01)
[2019-03-11] MEDS: HALOPERIDOL 5 MG TABLET PO PRN ×2 (10:04→17:38)
[2019-03-11 16:09] VITALS: BP 107/71
[2019-03-11] MEDS: QUEtiapine FUMARATE 300 MG TABLET PO SCH (20:41)
[2019-03-11] MEDS: PRAZOSIN HCL 1 MG CAPSULE PO SCH (20:42)
[2019-03-12 00:51] VITALS: BP 114/68
[2019-03-12] MEDS: FERROUS SULFATE 325 MG EC TABLET PO SCH ×2 (06:30→16:25)
[2019-03-12] MEDS: HALOPERIDOL 5 MG TABLET PO PRN (06:30)
[2019-03-12] MEDS: LORazepam 0.5 MG TABLET PO PRN ×2 (06:30→13:00)
[2019-03-12] MEDS: GABAPENTIN 300 MG CAPSULE PO SCH ×3 (08:23→16:25)
[2019-03-12] MEDS: VENLAFAXINE HCL 75 MG ER CAPSULE PO SCH (08:23)
[2019-03-12] MEDS: QUEtiapine FUMARATE 200 MG TABLET PO SCH (08:23)
[2019-03-12] MEDS: NICOTINE 14 MG/24 HOUR PATCH TD SCH (08:23)
[2019-03-12] MEDS: METHADONE HCL 10 MG/5 ML SOLUTION ORAL.SYG PO SCH (08:25)
[2019-03-12 08:37] VITALS: BP 127/82
[2019-03-12 16:27] VITALS: BP 131/75
[2019-03-12] MEDS: PRAZOSIN HCL 1 MG CAPSULE PO SCH (20:03)
[2019-03-12] MEDS: QUEtiapine FUMARATE 300 MG TABLET PO SCH (20:03)
[2019-03-13 02:31] VITALS: BP 114/72
[2019-03-13] MEDS: FERROUS SULFATE 325 MG EC TABLET PO SCH ×2 (07:11→16:15)
[2019-03-13] MEDS: VENLAFAXINE HCL 75 MG ER CAPSULE PO SCH (08:36)
[2019-03-13] MEDS: GABAPENTIN 300 MG CAPSULE PO SCH ×3 (08:37→16:15)
[2019-03-13] MEDS: QUEtiapine FUMARATE 200 MG TABLET PO SCH (08:37)
[2019-03-13] MEDS: METHADONE HCL 10 MG/5 ML SOLUTION ORAL.SYG PO SCH (08:39)
[2019-03-13] MEDS: NICOTINE 14 MG/24 HOUR PATCH TD SCH (08:52)
[2019-03-13 08:54] VITALS: BP 108/63
[2019-03-13] MEDS: LORazepam 0.5 MG TABLET PO PRN (13:00)
[2019-03-13 16:14] VITALS: BP 105/68
[2019-03-13] MEDS: QUEtiapine FUMARATE 300 MG TABLET PO SCH (20:00)
[2019-03-13] MEDS: PRAZOSIN HCL 1 MG CAPSULE PO SCH (20:00)
[2019-03-14] MEDS: FERROUS SULFATE 325 MG EC TABLET PO SCH ×2 (06:59→16:58)
[2019-03-14 07:00] VITALS: BP 110/70
[2019-03-14 09:10] VITALS: BP 118/67
[2019-03-14] MEDS: NICOTINE 14 MG/24 HOUR PATCH TD SCH (09:24)
[2019-03-14] MEDS: QUEtiapine FUMARATE 200 MG TABLET PO SCH (09:24)
[2019-03-14] MEDS: VENLAFAXINE HCL 75 MG ER CAPSULE PO SCH (09:24)
[2019-03-14] MEDS: GABAPENTIN 300 MG CAPSULE PO SCH ×3 (09:24→16:58)
[2019-03-14] MEDS: METHADONE HCL 10 MG/5 ML SOLUTION ORAL.SYG PO SCH (09:26)
[2019-03-14] MEDS: HALOPERIDOL 5 MG TABLET PO PRN (14:04)
[2019-03-14] MEDS: LORazepam 0.5 MG TABLET PO PRN (14:04)
[2019-03-14] MEDS ORDERED: PRAZ1 PO (14:12)
[2019-03-14 16:10] VITALS: BP 120/81
[2019-03-14] MEDS: QUEtiapine FUMARATE 300 MG TABLET PO SCH ×3 (20:00→20:45)
[2019-03-14] MEDS: PRAZOSIN HCL 1 MG CAPSULE PO SCH ×3 (20:06→20:44)
== END 2019-03-14 20:30 | disposition home or self-care (01) | DRG 751 ==
LOC: B2S 15:33
PROVIDERS: ADMIT Psychiatry & Neurology Psychiatry; ATTEND Psychiatry & Neurology Psychiatry
DX: F33.2 Major depressive disorder, recurrent severe without psychotic features (principal); F11.20 Opioid dependence, uncomplicated; R45.851 Suicidal ideations; B18.2 Chronic viral hepatitis C; D64.9 Anemia, unspecified; E78.5 Hyperlipidemia, unspecified; F10.10 Alcohol abuse, uncomplicated; Z71.41 Alcohol abuse counseling and surveillance of alcoholic; F15.90 Other stimulant use, unspecified, uncomplicated; G40.909 Epilepsy, unspecified, not intractable, without status epilepticus; K59.00 Constipation, unspecified; Z91.14 Patient's other noncompliance with medication regimen; Z91.5 Personal history of self-harm; Z79.899 Other long term (current) drug therapy
CPT/HCPCS: 80307; 83036; 84439; 84443; 87081; 87086

== ENCOUNTER 2019-05-12 20:04 | Inpatient (IN) | payer MEDICAID, OTHER ==
[~2019-05-12] VITALS: Ht 185.4 cm; Wt 116.7 kg
[~2019-05-12 20:04] MED LIST changes: -METH10SO PO; +PRAZ1 PO
[2019-05-12 21:04] LABS: BASOPHILS % (AUTO) 0.8 % (0.0-2.0); EOSINOPHILS % (AUTO) 1.1 % (1.0-6.0); HEMATOCRIT 38.6 % (41-53); HEMOGLOBIN 13.2 g/dL (13.5-17.5); LYMPHOCYTES # (AUTO) 2.7 K/uL (1.0-4.8); LYMPHOCYTES % (AUTO) 42.2 % (22.0-44.0); MEAN CORPUSCULAR HEMOGLOBIN 32.8 pg (26.0-34.0); MEAN CORPUSCULAR HGB CONC 34.1 G/dL (31.0-37.0); MEAN CORPUSCULAR VOLUME 96 fL (80-100); MONOCYTES # (AUTO) 0.5 K/uL (0.1-1.0); MONOCYTES % (AUTO) 8.4 % (2.0-9.0); NEUTROPHILS % (AUTO) 47.5 % (40.0-70.0); PLATELET COUNT (AUTO) 233 K/uL (150-450); RED BLOOD CELL COUNT(AUTO) 4.02 MIL/uL (4.50-5.90); RED CELL DISTRIBUTION WIDTH 13.5 % (11.5-14.5)
[2019-05-12 21:17] LABS: AMPHET/METH SCREEN,URINE NEGATIVE (NEGATIVE); BARBITURATE SCREEN, URINE NEGATIVE (NEGATIVE); BENZODIAZEPINES SCREEN,URINE POSITIVE (NEGATIVE); CANNABINOID SCREEN,URINE NEGATIVE (NEGATIVE); COCAINE SCREEN,URINE NEGATIVE (NEGATIVE); METHADONE SCREEN, URINE POSITIVE (NEGATIVE); OPIATE SCREEN,URINE NEGATIVE (NEGATIVE)
[2019-05-12 21:20] LABS: ANION GAP 5 mmol/L (8-16); CALCIUM, TOTAL 9.2 mg/dL (8.8-10.5); CARBON DIOXIDE 30 mmol/L (22-29); CHLORIDE 105 mmol/L (98-107); CREATININE 0.94 mg/dL (0.60-1.30); GLOMERULAR FILTR. RATE CALC > 60 mL/min (>60); GLUCOSE,RANDOM 98 mg/dL (70-110); POTASSIUM 4.2 mmol/L (3.5-5.1); SODIUM SERUM 140 mmol/L (136-145); UREA NITROGEN, BLOOD 26 mg/dL (7-18)
[2019-05-12 21:27] LABS: ALANINE AMINOTRANSFERASE 21 U/L (12-78); ALBUMIN 3.7 g/dL (3.4-5.0); ALKALINE PHOSPHATASE 102 U/L (46-116); ASPARTATE AMINOTRANSFERASE 16 U/L (15-37); BILIRUBIN,TOTAL 0.2 mg/dL (0.1-1.0); TOTAL PROTEIN, SERUM 6.6 g/dL (6.4-8.2)
[2019-05-12 21:30] LABS: PHENCYCLIDINE SCREEN,URINE NEGATIVE (NEGATIVE)
[2019-05-12] MEDS ORDERED: LORazepam 2 MG/ML VIAL IM ONE (21:30)
[2019-05-12] MEDS ORDERED: ZOLPIDEM TARTRATE 10 MG TABLET PO PRN (22:15)
[2019-05-13 02:55] LABS: CHOL/HDL RATIO 6.1 (4.2-7.3); CHOLESTEROL 218 mg/dL (131-200); HDL CHOLESTEROL 36 mg/dL (40-60); LDL CHOL (CALC.) 123 mg/dL (0-130); TRIGLYCERIDES 293 mg/dL (15-150)
[2019-05-13 05:38] VITALS: BP 104/62
[2019-05-13] MEDS ORDERED: ALBUTEROL SULFATE HFA 90 MCG/PUFF 8 GM INHALER IH PRN (06:15)
[2019-05-13] MEDS ORDERED: NICOTINE 14 MG/24 HOUR PATCH TD PRN (06:15)
[2019-05-13] MEDS ORDERED: DOCUSATE SODIUM 100 MG CAPSULE PO PRN (06:15)
[2019-05-13] MEDS ORDERED: CloNIDine HCL 0.1 MG TABLET PO PRN (06:15)
[2019-05-13] MEDS ORDERED: MAG HYDROX/AL HYDROX/SIMETH ES 30 ML SUSPENSION UDCUP PO PRN (06:15)
[2019-05-13] MEDS ORDERED: GuaiFENesin/D-METHORPHAN [SUGAR-FREE] 200-20MG/10 ML SYRUP UDCUP PO PRN (06:15)
[2019-05-13] MEDS ORDERED: MAGNESIUM HYDROXIDE SUSPENSION 30 ML UDCUP PO PRN (06:15)
[2019-05-13] MEDS ORDERED: PETROLATUM,WHITE 28 GM JELLY TP PRN (06:15)
[2019-05-13] MEDS ORDERED: IBUPROFEN 400 MG TABLET PO PRN (06:15)
[2019-05-13] MEDS ORDERED: LOPERAMIDE HCL 2 MG CAPSULE PO PRN (06:15)
[2019-05-13] MEDS ORDERED: ACETAMINOPHEN 325 MG TABLET PO PRN (06:15)
[2019-05-13] MEDS ORDERED: ONDANSETRON HCL 4 MG TABLET PO PRN (06:15)
[2019-05-13] MEDS: LORazepam 2 MG TABLET PO PRN ×2 (06:22→10:56)
[2019-05-13] MEDS ORDERED: INFLUENZA VIRUS VACCINE QVS 2019-20 (3YR+)/PF 60 MCG/0.5 ML SYRINGE IM ONE (06:45)
[2019-05-13 08:11] VITALS: BP 121/61
[2019-05-13] MEDS: QUEtiapine FUMARATE 200 MG TABLET PO SCH (12:17)
[2019-05-13] MEDS: METHADONE HCL 10 MG/5 ML SOLUTION ORAL.SYG PO SCH (12:17)
[2019-05-13] MEDS: VENLAFAXINE HCL 75 MG ER CAPSULE PO SCH (12:17)
[2019-05-13] MEDS: GABAPENTIN 300 MG CAPSULE PO SCH ×2 (14:29→16:11)
[2019-05-13 16:01] VITALS: BP 126/64
[2019-05-13] MEDS: QUEtiapine FUMARATE 300 MG TABLET PO SCH (20:06)
[2019-05-14] MEDS: LORazepam 2 MG TABLET PO PRN ×4 (05:07→23:46)
[2019-05-14 08:14] VITALS: BP 102/65
[2019-05-14] MEDS: METHADONE HCL 10 MG/5 ML SOLUTION ORAL.SYG PO SCH (08:54)
[2019-05-14] MEDS: GABAPENTIN 300 MG CAPSULE PO SCH ×3 (08:55→16:40)
[2019-05-14] MEDS: VENLAFAXINE HCL 75 MG ER CAPSULE PO SCH (08:55)
[2019-05-14] MEDS: QUEtiapine FUMARATE 200 MG TABLET PO SCH (08:55)
[2019-05-14 16:00] VITALS: BP 113/66
[2019-05-14] MEDS: QUEtiapine FUMARATE 300 MG TABLET PO SCH (22:12)
[2019-05-15 00:09] VITALS: BP 112/77
[2019-05-15] MEDS: HALOPERIDOL 5 MG TABLET PO PRN (00:31)
[2019-05-15 08:00] VITALS: BP 113/72
[2019-05-15] MEDS: VENLAFAXINE HCL 75 MG ER CAPSULE PO SCH (08:33)
[2019-05-15] MEDS: QUEtiapine FUMARATE 200 MG TABLET PO SCH ×2 (08:34→20:51)
[2019-05-15] MEDS: GABAPENTIN 300 MG CAPSULE PO SCH ×3 (08:34→17:10)
[2019-05-15] MEDS: NICOTINE 14 MG/24 HOUR PATCH TD SCH (08:44)
[2019-05-15] MEDS: METHADONE HCL 10 MG/5 ML SOLUTION ORAL.SYG PO SCH (08:44)
[2019-05-15] MEDS ORDERED: LORazepam 1 MG TABLET PO PRN (11:30)
[2019-05-16 06:34] VITALS: BP 111/68
[2019-05-16 07:45] LABS: ANION GAP 7 mmol/L (8-16); CARBON DIOXIDE 32 mmol/L (22-29); CHLORIDE 104 mmol/L (98-107); CREATININE 0.83 mg/dL (0.60-1.30); GLOMERULAR FILTR. RATE CALC > 60 mL/min (>60); GLUCOSE,RANDOM 82 mg/dL (70-110); SODIUM SERUM 143 mmol/L (136-145); UREA NITROGEN, BLOOD 22 mg/dL (7-18)
[2019-05-16 08:03] VITALS: BP 131/72
[2019-05-16] MEDS: VENLAFAXINE HCL 75 MG ER CAPSULE PO SCH (08:20)
[2019-05-16] MEDS: QUEtiapine FUMARATE 200 MG TABLET PO SCH ×2 (08:21→20:27)
[2019-05-16] MEDS: GABAPENTIN 300 MG CAPSULE PO SCH ×3 (08:21→16:12)
[2019-05-16] MEDS: METHADONE HCL 10 MG/5 ML SOLUTION ORAL.SYG PO SCH (08:23)
[2019-05-16 08:26] LABS: APPEARANCE,URINE CLEAR (CLEAR); BILIRUBIN,URINE NEGATIVE (NEGATIVE); GLUCOSE, URINE (UA) NEGATIVE (NEGATIVE); KETONES,URINE NEGATIVE (NEGATIVE); LEUKOCYTE ESTERASE ,URINE NEGATIVE (NEGATIVE); NITRATE,URINE NEGATIVE (NEGATIVE); OCCULT BLOOD,URINE NEGATIVE (NEGATIVE); PH,URINE 6.5 (5.0-8.0); PROTEIN,URINE NEGATIVE (NEGATIVE); UROBILINOGEN,URINE 0.2 mg/dL (<=1.0)
[2019-05-16] MEDS: NICOTINE 14 MG/24 HOUR PATCH TD SCH (09:00)
[2019-05-16] MEDS: LACTULOSE 20 GM/30 ML SOLUTION UDCUP PO SCH (16:42)
[2019-05-16 16:43] VITALS: BP 118/57
[2019-05-17 05:18] VITALS: BP 132/64
[2019-05-17] MEDS: HALOPERIDOL 5 MG TABLET PO PRN (06:15)
[2019-05-17] MEDS: METHADONE HCL 10 MG/5 ML SOLUTION ORAL.SYG PO SCH (08:01)
[2019-05-17 08:02] VITALS: BP 133/76
[2019-05-17] MEDS: QUEtiapine FUMARATE 200 MG TABLET PO SCH (08:06)
[2019-05-17] MEDS: GABAPENTIN 300 MG CAPSULE PO SCH ×2 (08:07→13:05)
[2019-05-17] MEDS: VENLAFAXINE HCL 75 MG ER CAPSULE PO SCH (08:07)
[2019-05-17] MEDS: LACTULOSE 20 GM/30 ML SOLUTION UDCUP PO SCH (08:08)
[2019-05-17] MEDS ORDERED: QUET200T PO (10:05)
[2019-05-17] MEDS: NICOTINE 14 MG/24 HOUR PATCH TD SCH (13:16)
== END 2019-05-17 13:55 | disposition home or self-care (01) | DRG 751 ==
LOC: EMS 20:06 → B3A 05-13 04:18
PROVIDERS: ADMIT Psychiatry & Neurology Psychiatry; ATTEND Psychiatry & Neurology Psychiatry
DX: F33.2 Major depressive disorder, recurrent severe without psychotic features (principal); R45.851 Suicidal ideations; F11.20 Opioid dependence, uncomplicated; B19.20 Unspecified viral hepatitis C without hepatic coma; D64.9 Anemia, unspecified; E78.5 Hyperlipidemia, unspecified; F17.210 Nicotine dependence, cigarettes, uncomplicated; F41.9 Anxiety disorder, unspecified; F19.10 Other psychoactive substance abuse, uncomplicated; F10.10 Alcohol abuse, uncomplicated; K59.00 Constipation, unspecified; Z91.5 Personal history of self-harm; Z28.21 Immunization not carried out because of patient refusal; Z88.1 Allergy status to other antibiotic agents; Z79.899 Other long term (current) drug therapy; Z71.41 Alcohol abuse counseling and surveillance of alcoholic; Z71.51 Drug abuse counseling and surveillance of drug abuser; Z71.6 Tobacco abuse counseling
CPT/HCPCS: 90686; G0480; J2060

== ENCOUNTER 2019-08-26 12:15 | Inpatient (IN) | payer MEDICAID ==
[~2019-08-26] VITALS: Ht 182.9 cm; Wt 108.6 kg
[~2019-08-26 12:15] MED LIST changes: -FERR-89 PO; -PRAZ1 PO; -QUET300T2 PO
[2019-08-26 12:39] VITALS: BP 142/79
[2019-08-26] MEDS: LORazepam 2 MG TABLET PO PRN ×2 (14:30→20:22)
[2019-08-26 16:12] VITALS: BP 101/60
[2019-08-26] MEDS ORDERED: BISACODYL 5 MG EC TABLET PO PRN (16:45)
[2019-08-26] MEDS ORDERED: LACTULOSE 20 GM/30 ML SOLUTION UDCUP PO PRN (16:45)
[2019-08-26] MEDS: GABAPENTIN 300 MG CAPSULE PO SCH (17:24)
[2019-08-26] MEDS: DOCUSATE SODIUM 250 MG CAPSULE PO SCH (17:47)
[2019-08-26] MEDS: QUEtiapine FUMARATE 300 MG TABLET PO SCH (22:37)
[2019-08-27 05:24] VITALS: BP 117/63
[2019-08-27] MEDS: LORazepam 2 MG TABLET PO PRN ×2 (06:46→12:04)
[2019-08-27 08:19] LABS: BASOPHILS % (AUTO) 0.5 % (0.0-2.0); EOSINOPHILS % (AUTO) 1.5 % (1.0-6.0); HEMATOCRIT 39.8 % (41-53); HEMOGLOBIN 13.3 g/dL (13.5-17.5); LYMPHOCYTES # (AUTO) 2.5 K/uL (1.0-4.8); LYMPHOCYTES % (AUTO) 46.2 % (22.0-44.0); MEAN CORPUSCULAR HEMOGLOBIN 32.3 pg (26.0-34.0); MEAN CORPUSCULAR HGB CONC 33.4 G/dL (31.0-37.0); MEAN CORPUSCULAR VOLUME 97 fL (80-100); MONOCYTES # (AUTO) 0.5 K/uL (0.1-1.0); MONOCYTES % (AUTO) 8.3 % (2.0-9.0); NEUTROPHILS # (AUTO) 2.4 K/uL (1.8-7.7); NEUTROPHILS % (AUTO) 43.5 % (40.0-70.0); PLATELET COUNT (AUTO) 219 K/uL (150-450); RED BLOOD CELL COUNT(AUTO) 4.11 MIL/uL (4.50-5.90); RED CELL DISTRIBUTION WIDTH 13.1 % (11.5-14.5)
[2019-08-27 08:36] LABS: ALANINE AMINOTRANSFERASE 37 U/L (12-78); ALBUMIN 3.3 g/dL (3.4-5.0); ALKALINE PHOSPHATASE 79 U/L (46-116); ANION GAP 6 mmol/L (8-16); ASPARTATE AMINOTRANSFERASE 22 U/L (15-37); CALCIUM, TOTAL 9.2 mg/dL (8.8-10.5); CARBON DIOXIDE 31 mmol/L (22-29); CHLORIDE 105 mmol/L (98-107); CREATININE 0.89 mg/dL (0.60-1.30); GLOMERULAR FILTR. RATE CALC > 60 mL/min (>60); GLUCOSE,RANDOM 86 mg/dL (70-110); POTASSIUM 4.1 mmol/L (3.5-5.1); SODIUM SERUM 142 mmol/L (136-145); TOTAL PROTEIN, SERUM 6.3 g/dL (6.4-8.2); UREA NITROGEN, BLOOD 17 mg/dL (7-18)
[2019-08-27] MEDS ORDERED: CYANOCOBALAMIN 1,000 MCG/ML VIAL IM ONE (09:00)
[2019-08-27] MEDS ORDERED: METHADONE HCL 10 MG TABLET PO SCH (09:00)
[2019-08-27 09:01] LABS: BILIRUBIN,TOTAL 0.1 mg/dL (0.1-1.0)
[2019-08-27] MEDS: QUEtiapine FUMARATE 200 MG TABLET PO SCH (09:01)
[2019-08-27] MEDS: THIAMINE HCL 100 MG TABLET PO SCH (09:01)
[2019-08-27] MEDS: DOCUSATE SODIUM 250 MG CAPSULE PO SCH ×2 (09:01→16:13)
[2019-08-27] MEDS: VENLAFAXINE HCL 75 MG ER CAPSULE PO SCH (09:01)
[2019-08-27] MEDS: GABAPENTIN 300 MG CAPSULE PO SCH ×3 (09:02→16:13)
[2019-08-27] MEDS: FOLIC ACID 1 MG TABLET PO SCH (09:02)
[2019-08-27] MEDS: METHADONE HCL 10 MG TABLET PO SCH (09:05)
[2019-08-27 10:24] VITALS: BP 107/58
[2019-08-27] MEDS: NICOTINE POLACRILEX 2 MG LOZENGE PO PRN (16:19)
[2019-08-27 16:27] VITALS: BP 114/78
[2019-08-27] MEDS: QUEtiapine FUMARATE 300 MG TABLET PO SCH (20:08)
[2019-08-28 05:51] VITALS: BP 124/57
[2019-08-28] MEDS: LORazepam 2 MG TABLET PO PRN ×4 (05:51→20:15)
[2019-08-28 08:03] VITALS: BP 110/64
[2019-08-28] MEDS: METHADONE HCL 10 MG TABLET PO SCH (08:25)
[2019-08-28] MEDS: FOLIC ACID 1 MG TABLET PO SCH (08:25)
[2019-08-28] MEDS: GABAPENTIN 300 MG CAPSULE PO SCH ×3 (08:25→16:33)
[2019-08-28] MEDS: VENLAFAXINE HCL 75 MG ER CAPSULE PO SCH (08:25)
[2019-08-28] MEDS: QUEtiapine FUMARATE 200 MG TABLET PO SCH (08:25)
[2019-08-28] MEDS: DOCUSATE SODIUM 250 MG CAPSULE PO SCH ×2 (08:25→16:33)
[2019-08-28] MEDS: THIAMINE HCL 100 MG TABLET PO SCH (08:25)
[2019-08-28] MEDS: NICOTINE POLACRILEX 2 MG LOZENGE PO PRN (12:15)
[2019-08-28 16:11] VITALS: BP 143/86
[2019-08-28] MEDS: QUEtiapine FUMARATE 300 MG TABLET PO SCH (20:15)
[2019-08-28 22:45] VITALS: BP 133/77
[2019-08-29 08:00] VITALS: BP 116/67
[2019-08-29 08:08] VITALS: BP 123/80
[2019-08-29] MEDS: GABAPENTIN 300 MG CAPSULE PO SCH ×3 (08:18→16:02)
[2019-08-29] MEDS: QUEtiapine FUMARATE 200 MG TABLET PO SCH (08:18)
[2019-08-29] MEDS: DOCUSATE SODIUM 250 MG CAPSULE PO SCH ×2 (08:18→16:02)
[2019-08-29] MEDS: THIAMINE HCL 100 MG TABLET PO SCH (08:18)
[2019-08-29] MEDS: FOLIC ACID 1 MG TABLET PO SCH (08:19)
[2019-08-29] MEDS: VENLAFAXINE HCL 75 MG ER CAPSULE PO SCH (08:19)
[2019-08-29] MEDS: METHADONE HCL 10 MG TABLET PO SCH (08:19)
[2019-08-29] MEDS: LORazepam 2 MG TABLET PO PRN ×5 (08:21→21:50)
[2019-08-29 09:00] VITALS: BP 139/69
[2019-08-29] MEDS: NICOTINE POLACRILEX 2 MG LOZENGE PO PRN (09:14)
[2019-08-29 10:00] VITALS: BP 131/78
[2019-08-29 11:00] VITALS: BP 142/93
[2019-08-29 17:33] VITALS: BP 127/94
[2019-08-29] MEDS: QUEtiapine FUMARATE 300 MG TABLET PO SCH (21:50)
[2019-08-30] VITALS: BP 124/77
[2019-08-30] MEDS: LORazepam 2 MG TABLET PO PRN ×2 (06:36→14:30)
[2019-08-30] MEDS ORDERED: LORazepam 2 MG TABLET PO PRN (07:00)
[2019-08-30 08:00] VITALS: BP 128/66
[2019-08-30 08:29] LABS: BASOPHILS % (AUTO) 0.8 % (0.0-2.0); EOSINOPHILS % (AUTO) 1.9 % (1.0-6.0); HEMATOCRIT 44.1 % (41-53); HEMOGLOBIN 15.1 g/dL (13.5-17.5); LYMPHOCYTES # (AUTO) 1.9 K/uL (1.0-4.8); LYMPHOCYTES % (AUTO) 37.4 % (22.0-44.0); MEAN CORPUSCULAR HEMOGLOBIN 32.7 pg (26.0-34.0); MEAN CORPUSCULAR HGB CONC 34.3 G/dL (31.0-37.0); MEAN CORPUSCULAR VOLUME 95 fL (80-100); MONOCYTES # (AUTO) 0.2 K/uL (0.1-1.0); MONOCYTES % (AUTO) 4.8 % (2.0-9.0); NEUTROPHILS # (AUTO) 2.8 K/uL (1.8-7.7); NEUTROPHILS % (AUTO) 55.1 % (40.0-70.0); PLATELET COUNT (AUTO) 219 K/uL (150-450); RED BLOOD CELL COUNT(AUTO) 4.62 MIL/uL (4.50-5.90); RED CELL DISTRIBUTION WIDTH 13.7 % (11.5-14.5)
[2019-08-30 08:58] LABS: ALANINE AMINOTRANSFERASE 36 U/L (12-78); ALBUMIN 3.9 g/dL (3.4-5.0); ALKALINE PHOSPHATASE 96 U/L (46-116); ANION GAP 7 mmol/L (8-16); ASPARTATE AMINOTRANSFERASE 15 U/L (15-37); BILIRUBIN,TOTAL 0.3 mg/dL (0.1-1.0); CALCIUM, TOTAL 9.6 mg/dL (8.8-10.5); CARBON DIOXIDE 30 mmol/L (22-29); CHLORIDE 100 mmol/L (98-107); CREATININE 0.96 mg/dL (0.60-1.30); GLOMERULAR FILTR. RATE CALC > 60 mL/min (>60); GLUCOSE,RANDOM 153 mg/dL (70-110); POTASSIUM 3.9 mmol/L (3.5-5.1); SODIUM SERUM 137 mmol/L (136-145); UREA NITROGEN, BLOOD 19 mg/dL (7-18)
[2019-08-30] MEDS: FOLIC ACID 1 MG TABLET PO SCH ×2 (08:59→11:32)
[2019-08-30] MEDS: LORazepam 2 MG TABLET PO SCH ×5 (08:59→21:27)
[2019-08-30] MEDS: QUEtiapine FUMARATE 200 MG TABLET PO SCH (08:59)
[2019-08-30] MEDS: DOCUSATE SODIUM 250 MG CAPSULE PO SCH ×2 (09:00→17:20)
[2019-08-30] MEDS: VENLAFAXINE HCL 75 MG ER CAPSULE PO SCH (09:00)
[2019-08-30] MEDS: METHADONE HCL 10 MG TABLET PO SCH (09:01)
[2019-08-30] MEDS: GABAPENTIN 300 MG CAPSULE PO SCH ×3 (09:01→17:20)
[2019-08-30] MEDS: THIAMINE HCL 100 MG TABLET PO SCH (12:46)
[2019-08-30 16:02] VITALS: BP 119/92
[2019-08-30 16:16] VITALS: BP 119/92
[2019-08-30] MEDS: QUEtiapine FUMARATE 300 MG TABLET PO SCH (21:27)
[2019-08-31] VITALS (7 sets, daily range): BP systolic 105–140; BP diastolic 62–89
[2019-08-31] MEDS: LORazepam 2 MG TABLET PO PRN (05:10)
[2019-08-31] MEDS: LORazepam 2 MG TABLET PO SCH ×4 (08:05→20:29)
[2019-08-31] MEDS: DOCUSATE SODIUM 250 MG CAPSULE PO SCH ×2 (08:06→16:26)
[2019-08-31] MEDS: QUEtiapine FUMARATE 200 MG TABLET PO SCH (08:06)
[2019-08-31] MEDS: GABAPENTIN 300 MG CAPSULE PO SCH ×3 (08:06→16:26)
[2019-08-31] MEDS: THIAMINE HCL 100 MG TABLET PO SCH (08:07)
[2019-08-31] MEDS: VENLAFAXINE HCL 75 MG ER CAPSULE PO SCH (08:07)
[2019-08-31] MEDS: METHADONE HCL 10 MG TABLET PO SCH (08:22)
[2019-08-31] MEDS: QUEtiapine FUMARATE 300 MG TABLET PO SCH (20:29)
[2019-09-01 05:43] VITALS: BP 117/76
[2019-09-01] MEDS: LORazepam 2 MG TABLET PO PRN (07:02)
[2019-09-01] MEDS: LORazepam 1 MG TABLET PO SCH ×4 (08:09→20:49)
[2019-09-01] MEDS: DOCUSATE SODIUM 250 MG CAPSULE PO SCH ×2 (08:10→16:11)
[2019-09-01] MEDS: QUEtiapine FUMARATE 200 MG TABLET PO SCH (08:10)
[2019-09-01] MEDS: FOLIC ACID 1 MG TABLET PO SCH (08:10)
[2019-09-01] MEDS: VENLAFAXINE HCL 75 MG ER CAPSULE PO SCH (08:11)
[2019-09-01] MEDS: GABAPENTIN 300 MG CAPSULE PO SCH ×3 (08:11→16:11)
[2019-09-01] MEDS: THIAMINE HCL 100 MG TABLET PO SCH (08:11)
[2019-09-01] MEDS: METHADONE HCL 10 MG TABLET PO SCH (08:13)
[2019-09-01 08:26] VITALS: BP 135/60
[2019-09-01 12:37] VITALS: BP 135/60
[2019-09-01] MEDS: LORazepam 1 MG TABLET PO PRN ×2 (14:36→17:09)
[2019-09-01] MEDS: QUEtiapine FUMARATE 300 MG TABLET PO SCH (20:48)
[2019-09-02 06:27] VITALS: BP 107/61
[2019-09-02] MEDS ORDERED: LORazepam 1 MG TABLET PO PRN (07:00)
[2019-09-02] MEDS: LORazepam 2 MG TABLET PO PRN ×4 (07:02→21:18)
[2019-09-02] MEDS: VENLAFAXINE HCL 75 MG ER CAPSULE PO SCH (08:25)
[2019-09-02] MEDS: FOLIC ACID 1 MG TABLET PO SCH (08:26)
[2019-09-02] MEDS: QUEtiapine FUMARATE 200 MG TABLET PO SCH (08:26)
[2019-09-02] MEDS: GABAPENTIN 300 MG CAPSULE PO SCH ×3 (08:26→16:16)
[2019-09-02] MEDS: DOCUSATE SODIUM 250 MG CAPSULE PO SCH ×2 (08:26→16:16)
[2019-09-02] MEDS: THIAMINE HCL 100 MG TABLET PO SCH (08:26)
[2019-09-02] MEDS: METHADONE HCL 10 MG TABLET PO SCH (08:27)
[2019-09-02 09:00] VITALS: BP 128/69
[2019-09-02] MEDS ORDERED: ACETAMINOPHEN 325 MG TABLET PO PRN (09:45)
[2019-09-02] MEDS ORDERED: IBUPROFEN 600 MG TABLET PO PRN (09:45)
[2019-09-02 18:03] VITALS: BP 115/77
[2019-09-02] MEDS ORDERED: HALOPERIDOL LACTATE 5 MG/ML VIAL IM ONE (19:15)
[2019-09-02] MEDS: QUEtiapine FUMARATE 300 MG TABLET PO SCH (20:09)
[2019-09-02] MEDS: ZOLPIDEM TARTRATE 10 MG TABLET PO PRN (21:18)
[2019-09-03 05:06] VITALS: BP 126/84
[2019-09-03 07:48] LABS: HEMOGLOBIN A1C 5.6 % (4.5-6.2)
[2019-09-03 07:52] LABS: CHOL/HDL RATIO 3.8 (4.2-7.3)
[2019-09-03] MEDS: METHADONE HCL 10 MG TABLET PO SCH (08:12)
[2019-09-03 08:13] VITALS: BP 107/69
[2019-09-03] MEDS: THIAMINE HCL 100 MG TABLET PO SCH (08:13)
[2019-09-03] MEDS: FOLIC ACID 1 MG TABLET PO SCH (08:13)
[2019-09-03] MEDS: GABAPENTIN 300 MG CAPSULE PO SCH ×3 (08:13→16:46)
[2019-09-03] MEDS: DOCUSATE SODIUM 250 MG CAPSULE PO SCH ×2 (08:13→16:46)
[2019-09-03] MEDS: VENLAFAXINE HCL 75 MG ER CAPSULE PO SCH (08:13)
[2019-09-03] MEDS: MULTIVITAMINS WITH MINERALS, THERAPEUTIC TABLET PO SCH (08:13)
[2019-09-03] MEDS: QUEtiapine FUMARATE 200 MG TABLET PO SCH (08:13)
[2019-09-03] MEDS: LORazepam 2 MG TABLET PO PRN ×3 (09:42→18:28)
[2019-09-03] MEDS: NICOTINE POLACRILEX 2 MG LOZENGE PO PRN ×2 (11:31→14:22)
[2019-09-03 14:27] VITALS: BP 107/54
[2019-09-03 16:00] VITALS: BP 120/78
[2019-09-03 16:59] VITALS: BP 120/78
[2019-09-03] MEDS: QUEtiapine FUMARATE 300 MG TABLET PO SCH (20:17)
[2019-09-03] MEDS: ZOLPIDEM TARTRATE 10 MG TABLET PO PRN (20:17)
[2019-09-04 06:43] VITALS: BP 108/69
[2019-09-04] MEDS: LORazepam 2 MG TABLET PO PRN ×3 (07:07→15:25)
[2019-09-04 08:00] VITALS: BP 137/77
[2019-09-04] MEDS: VENLAFAXINE HCL 75 MG ER CAPSULE PO SCH (08:40)
[2019-09-04] MEDS: DOCUSATE SODIUM 250 MG CAPSULE PO SCH (08:41)
[2019-09-04] MEDS: QUEtiapine FUMARATE 200 MG TABLET PO SCH (08:41)
[2019-09-04] MEDS: GABAPENTIN 300 MG CAPSULE PO SCH ×2 (08:41→13:21)
[2019-09-04] MEDS: METHADONE HCL 10 MG TABLET PO SCH (08:41)
[2019-09-04] MEDS: THIAMINE HCL 100 MG TABLET PO SCH (08:41)
[2019-09-04] MEDS: MULTIVITAMINS WITH MINERALS, THERAPEUTIC TABLET PO SCH (08:41)
[2019-09-04] MEDS: FOLIC ACID 1 MG TABLET PO SCH (08:41)
[2019-09-04] MEDS ORDERED: QUET300T2 PO (11:52)
[2019-09-04] MEDS ORDERED: GABA-531 PO (11:52)
[2019-09-04] MEDS ORDERED: QUET200T PO (11:52)
[2019-09-04] MEDS ORDERED: VENL-67 PO (11:52)
== END 2019-09-04 18:51 | disposition home or self-care (01) | DRG 751 ==
LOC: B2S 12:55 → B3A 08-27 20:41
PROVIDERS: ADMIT Psychiatry & Neurology Psychiatry; ATTEND Psychiatry & Neurology Psychiatry
DX: F33.2 Major depressive disorder, recurrent severe without psychotic features (principal); E44.1 Mild protein-calorie malnutrition; R45.851 Suicidal ideations; B19.20 Unspecified viral hepatitis C without hepatic coma; E78.5 Hyperlipidemia, unspecified; F19.90 Other psychoactive substance use, unspecified, uncomplicated; F11.90 Opioid use, unspecified, uncomplicated; K59.00 Constipation, unspecified; R45.87 Impulsiveness; Z79.899 Other long term (current) drug therapy; Z91.5 Personal history of self-harm; Z68.32 Body mass index [BMI] 32.0-32.9, adult
CPT/HCPCS: 83036; 83735; 86592; J1630; J3420

== ENCOUNTER 2019-09-11 10:35 | Inpatient (IN) | payer MEDICAID, OTHER ==
[~2019-09-11] VITALS: Ht 182.9 cm; Wt 109.1 kg
[~2019-09-11 10:35] MED LIST changes: +QUET300T2 PO
[2019-09-11 12:11] LABS: BASOPHILS % (AUTO) 0.6 % (0.0-2.0); EOSINOPHILS % (AUTO) 0.3 % (1.0-6.0); HEMATOCRIT 41.4 % (41-53); LYMPHOCYTES # (AUTO) 1.4 K/uL (1.0-4.8); LYMPHOCYTES % (AUTO) 15.5 % (22.0-44.0); MEAN CORPUSCULAR HEMOGLOBIN 32.1 pg (26.0-34.0); MEAN CORPUSCULAR HGB CONC 33.7 G/dL (31.0-37.0); MEAN CORPUSCULAR VOLUME 95 fL (80-100); MONOCYTES # (AUTO) 0.6 K/uL (0.1-1.0); MONOCYTES % (AUTO) 6.2 % (2.0-9.0); NEUTROPHILS # (AUTO) 7.2 K/uL (1.8-7.7); NEUTROPHILS % (AUTO) 77.4 % (40.0-70.0); PLATELET COUNT (AUTO) 293 K/uL (150-450); RED BLOOD CELL COUNT(AUTO) 4.34 MIL/uL (4.50-5.90); RED CELL DISTRIBUTION WIDTH 13.3 % (11.5-14.5)
[2019-09-11] MEDS ORDERED: LORazepam 2 MG/ML VIAL IM ONE ×2 (12:15→16:15)
[2019-09-11 12:22] LABS: ANION GAP 11 mmol/L (8-16); CALCIUM, TOTAL 9.6 mg/dL (8.8-10.5); CARBON DIOXIDE 28 mmol/L (22-29); CHLORIDE 101 mmol/L (98-107); CREATININE 0.69 mg/dL (0.60-1.30); GLOMERULAR FILTR. RATE CALC > 60 mL/min (>60); GLUCOSE,RANDOM 90 mg/dL (70-110); POTASSIUM 3.6 mmol/L (3.5-5.1); SODIUM SERUM 140 mmol/L (136-145); UREA NITROGEN, BLOOD 20 mg/dL (7-18)
[2019-09-11 12:29] LABS: ALANINE AMINOTRANSFERASE 33 U/L (12-78); ALBUMIN 4.2 g/dL (3.4-5.0); ALKALINE PHOSPHATASE 96 U/L (46-116); ASPARTATE AMINOTRANSFERASE 40 U/L (15-37); BILIRUBIN,TOTAL 0.3 mg/dL (0.1-1.0); TOTAL PROTEIN, SERUM 7.7 g/dL (6.4-8.2)
[2019-09-11] MEDS ORDERED: IOVERSOL 320 MG/ML 100 ML VIAL ONE (12:40)
[2019-09-11] MEDS ORDERED: SODIUM CHLORIDE 0.9% 100 ML ONE (12:40)
[2019-09-11] MEDS ORDERED: LORazepam 2 MG/ML VIAL IVP ONE ×2 (12:45→14:00)
[2019-09-11] MEDS ORDERED: ChlordiazePOXIDE HCL 25 MG CAPSULE PO ONE (12:45)
[2019-09-11] MEDS ORDERED: DiphenhydrAMINE HCL 50 MG/ML VIAL IM ONE (16:15)
[2019-09-11] MEDS ORDERED: HALOPERIDOL LACTATE 5 MG/ML VIAL IM ONE (16:15)
[2019-09-11] MEDS ORDERED: CEPHALEXIN MONOHYDRATE 500 MG CAPSULE PO ONE (18:15)
[2019-09-11] MEDS ORDERED: SULFAMETHOX/TRIMETH DS 800-160 MG/TABLET PO ONE (18:15)
[2019-09-11] MEDS: GABAPENTIN 300 MG CAPSULE PO SCH (18:30)
[2019-09-11 18:55] VITALS: BP 127/86
[2019-09-11] MEDS ORDERED: PNEUMOCOCCAL VACCINE POLYVALENT 0.5 ML VIAL [PPSV23] IM ONE (19:45)
[2019-09-11 19:50] VITALS: BP 123/83
[2019-09-11 20:04] VITALS: BP 127/86
[2019-09-11 20:50] VITALS: BP 113/74
[2019-09-11] MEDS ORDERED: MAGNESIUM HYDROXIDE SUSPENSION 30 ML UDCUP PO PRN (21:15)
[2019-09-11] MEDS ORDERED: ONDANSETRON HCL 4 MG TABLET PO PRN (21:15)
[2019-09-11] MEDS ORDERED: ACETAMINOPHEN 325 MG TABLET PO PRN (21:15)
[2019-09-11] MEDS ORDERED: LOPERAMIDE HCL 2 MG CAPSULE PO PRN (21:15)
[2019-09-11] MEDS ORDERED: CloNIDine HCL 0.1 MG TABLET PO PRN (21:15)
[2019-09-11] MEDS ORDERED: ALBUTEROL SULFATE HFA 90 MCG/PUFF 8 GM INHALER IH PRN (21:15)
[2019-09-11] MEDS ORDERED: DOCUSATE SODIUM 100 MG CAPSULE PO PRN (21:15)
[2019-09-11] MEDS ORDERED: GuaiFENesin/D-METHORPHAN [SUGAR-FREE] 200-20MG/10 ML SYRUP UDCUP PO PRN (21:15)
[2019-09-11] MEDS ORDERED: IBUPROFEN 400 MG TABLET PO PRN (21:15)
[2019-09-11] MEDS ORDERED: MAG HYDROX/AL HYDROX/SIMETH ES 30 ML SUSPENSION UDCUP PO PRN (21:15)
[2019-09-11] MEDS ORDERED: NICOTINE 14 MG/24 HOUR PATCH TD PRN (21:15)
[2019-09-11] MEDS ORDERED: PETROLATUM,WHITE 28 GM JELLY TP PRN (21:15)
[2019-09-11] MEDS: QUEtiapine FUMARATE 200 MG TABLET PO SCH (21:39)
[2019-09-11 21:50] VITALS: BP 105/68
[2019-09-12] VITALS (7 sets, daily range): BP systolic 110–128; BP diastolic 63–78
[2019-09-12 07:25] LABS: EOSINOPHILS % (AUTO) 2.1 % (1.0-6.0); HEMATOCRIT 42.1 % (41-53); HEMOGLOBIN 13.9 g/dL (13.5-17.5); LYMPHOCYTES # (AUTO) 1.6 K/uL (1.0-4.8); LYMPHOCYTES % (AUTO) 24.7 % (22.0-44.0); MEAN CORPUSCULAR HEMOGLOBIN 31.8 pg (26.0-34.0); MEAN CORPUSCULAR HGB CONC 32.9 G/dL (31.0-37.0); MEAN CORPUSCULAR VOLUME 97 fL (80-100); MONOCYTES # (AUTO) 0.5 K/uL (0.1-1.0); MONOCYTES % (AUTO) 8.7 % (2.0-9.0); NEUTROPHILS % (AUTO) 63.5 % (40.0-70.0); PLATELET COUNT (AUTO) 231 K/uL (150-450); RED BLOOD CELL COUNT(AUTO) 4.36 MIL/uL (4.50-5.90); RED CELL DISTRIBUTION WIDTH 13.6 % (11.5-14.5)
[2019-09-12 07:54] LABS: HEMOGLOBIN A1C 5.5 % (4.5-6.2)
[2019-09-12 08:15] LABS: ALANINE AMINOTRANSFERASE 33 U/L (12-78); ALBUMIN 3.5 g/dL (3.4-5.0); ALKALINE PHOSPHATASE 90 U/L (46-116); ANION GAP 9 mmol/L (8-16); ASPARTATE AMINOTRANSFERASE 37 U/L (15-37); BILIRUBIN,TOTAL 0.4 mg/dL (0.1-1.0); CALCIUM, TOTAL 9.5 mg/dL (8.8-10.5); CARBON DIOXIDE 26 mmol/L (22-29); CHLORIDE 103 mmol/L (98-107); CHOL/HDL RATIO 2.7 (4.2-7.3); CHOLESTEROL 153 mg/dL (131-200); CREATININE 0.79 mg/dL (0.60-1.30); FREE T4 (FREE THYROXINE) 1.61 ng/dL (0.76-1.46); GLOMERULAR FILTR. RATE CALC > 60 mL/min (>60); GLUCOSE,RANDOM 85 mg/dL (70-110); HDL CHOLESTEROL 57 mg/dL (40-60); LDL CHOL (CALC.) 85 mg/dL (0-130); POTASSIUM 3.7 mmol/L (3.5-5.1); SODIUM SERUM 138 mmol/L (136-145); THYROID STIMULATING HORMONE 2.32 uIU/mL (0.36-3.74); TOTAL PROTEIN, SERUM 6.8 g/dL (6.4-8.2); TRIGLYCERIDES 56 mg/dL (15-150); UREA NITROGEN, BLOOD 14 mg/dL (7-18)
[2019-09-12] MEDS: VENLAFAXINE HCL 75 MG ER CAPSULE PO SCH (08:44)
[2019-09-12] MEDS: GABAPENTIN 300 MG CAPSULE PO SCH ×3 (08:44→16:11)
[2019-09-12] MEDS: LORazepam 2 MG TABLET PO PRN ×3 (08:46→18:27)
[2019-09-12] MEDS ORDERED: VENLAFAXINE HCL 150 MG ER CAPSULE PO SCH (09:00)
[2019-09-12] MEDS: METHADONE HCL 10 MG TABLET PO SCH (14:59)
[2019-09-12] MEDS: HALOPERIDOL 5 MG TABLET PO PRN (18:27)
[2019-09-12] MEDS: ZOLPIDEM TARTRATE 10 MG TABLET PO PRN (20:22)
[2019-09-12] MEDS: QUEtiapine FUMARATE 200 MG TABLET PO SCH (20:22)
[2019-09-13 06:09] VITALS: BP 129/77
[2019-09-13] MEDS: LORazepam 2 MG TABLET PO PRN ×2 (06:40→12:25)
[2019-09-13 08:45] VITALS: BP 103/61
[2019-09-13] MEDS: METHADONE HCL 10 MG TABLET PO SCH (10:01)
[2019-09-13] MEDS: GABAPENTIN 300 MG CAPSULE PO SCH ×2 (10:02→12:25)
[2019-09-13] MEDS: VENLAFAXINE HCL 75 MG ER CAPSULE PO SCH (10:02)
[2019-09-13 16:00] VITALS: BP 115/67
[2019-09-13] MEDS ORDERED: GuaiFENesin/D-METHORPHAN [SUGAR-FREE] 200-20MG/10 ML SYRUP UDCUP PO PRN (16:15)
[2019-09-13] MEDS ORDERED: HydrOXYzine PAMOATE 50 MG CAPSULE PO PRN (16:15)
[2019-09-13] MEDS ORDERED: CYANOCOBALAMIN 1,000 MCG/ML VIAL IM ONE (16:15)
[2019-09-13] MEDS ORDERED: LOPERAMIDE HCL 2 MG CAPSULE PO PRN (16:15)
[2019-09-13] MEDS: ACAMPROSATE CALCIUM 333 MG DR TABLET PO SCH (17:06)
[2019-09-13] MEDS: DIAZEPAM 10 MG TABLET PO PRN ×2 (17:06→20:48)
[2019-09-13] MEDS: PREGABALIN 50 MG CAPSULE PO SCH (17:06)
[2019-09-13] MEDS: HALOPERIDOL 5 MG TABLET PO PRN (17:07)
[2019-09-13] MEDS: THIAMINE HCL 100 MG TABLET PO SCH (17:07)
[2019-09-13] MEDS: QUEtiapine FUMARATE 200 MG TABLET PO SCH (20:48)
[2019-09-13] MEDS: ZOLPIDEM TARTRATE 10 MG TABLET PO PRN (20:49)
[2019-09-14 01:52] VITALS: BP 120/71
[2019-09-14 06:02] VITALS: BP 104/64
[2019-09-14] MEDS ORDERED: DIAZEPAM 10 MG TABLET PO PRN (07:00)
[2019-09-14] MEDS: PREGABALIN 50 MG CAPSULE PO SCH ×3 (08:42→16:35)
[2019-09-14] MEDS: DIAZEPAM 10 MG TABLET PO SCH ×4 (08:43→20:22)
[2019-09-14] MEDS: MULTIVITAMINS WITH MINERALS, THERAPEUTIC TABLET PO SCH (08:43)
[2019-09-14] MEDS: VENLAFAXINE HCL 150 MG ER CAPSULE PO SCH (08:43)
[2019-09-14] MEDS: ACAMPROSATE CALCIUM 333 MG DR TABLET PO SCH ×3 (08:43→16:35)
[2019-09-14] MEDS: FOLIC ACID 1 MG TABLET PO SCH (08:43)
[2019-09-14] MEDS: METHADONE HCL 10 MG TABLET PO SCH (08:51)
[2019-09-14] MEDS: THIAMINE HCL 100 MG TABLET PO SCH ×2 (10:20→16:35)
[2019-09-14 11:26] VITALS: BP 109/61
[2019-09-14 11:30] VITALS: BP 120/59
[2019-09-14 16:07] VITALS: BP 123/64
[2019-09-14 17:17] VITALS: BP 105/68
[2019-09-14] MEDS ORDERED: QUEtiapine FUMARATE 300 MG TABLET PO SCH (21:00)
[2019-09-15] MEDS: METHADONE HCL 10 MG TABLET PO SCH (08:32)
[2019-09-15] MEDS: FOLIC ACID 1 MG TABLET PO SCH (08:32)
[2019-09-15] MEDS: MULTIVITAMINS WITH MINERALS, THERAPEUTIC TABLET PO SCH (08:32)
[2019-09-15] MEDS: THIAMINE HCL 100 MG TABLET PO SCH ×2 (08:32→16:27)
[2019-09-15] MEDS: PREGABALIN 75 MG CAPSULE PO SCH ×3 (08:32→16:27)
[2019-09-15] MEDS: DIAZEPAM 10 MG TABLET PO SCH ×4 (08:33→20:11)
[2019-09-15] MEDS: ACAMPROSATE CALCIUM 333 MG DR TABLET PO SCH ×3 (08:33→16:27)
[2019-09-15] MEDS: VENLAFAXINE HCL 150 MG ER CAPSULE PO SCH (08:33)
[2019-09-15] MEDS: HALOPERIDOL 5 MG TABLET PO PRN (12:03)
[2019-09-15 16:14] VITALS: BP 97/68
[2019-09-15 20:10] VITALS: BP 108/64
[2019-09-15] MEDS: ZOLPIDEM TARTRATE 10 MG TABLET PO PRN (20:11)
[2019-09-15] MEDS ORDERED: QUEtiapine FUMARATE 200 MG TABLET PO SCH (21:00)
[2019-09-16 06:23] VITALS: BP 109/65
[2019-09-16 06:58] VITALS: BP 109/65
[2019-09-16 08:00] VITALS: BP 105/59
[2019-09-16] MEDS: MULTIVITAMINS WITH MINERALS, THERAPEUTIC TABLET PO SCH (08:27)
[2019-09-16] MEDS: VENLAFAXINE HCL 75 MG ER CAPSULE PO SCH (08:27)
[2019-09-16] MEDS: PREGABALIN 75 MG CAPSULE PO SCH ×2 (08:27→12:54)
[2019-09-16] MEDS: ACAMPROSATE CALCIUM 333 MG DR TABLET PO SCH ×3 (08:27→17:11)
[2019-09-16] MEDS: THIAMINE HCL 100 MG TABLET PO SCH ×2 (08:27→17:13)
[2019-09-16] MEDS: FOLIC ACID 1 MG TABLET PO SCH (08:27)
[2019-09-16] MEDS: DIAZEPAM 5 MG TABLET PO SCH ×4 (08:28→20:49)
[2019-09-16] MEDS: METHADONE HCL 10 MG TABLET PO SCH (08:29)
[2019-09-16] MEDS: DIAZEPAM 5 MG TABLET PO PRN (10:16)
[2019-09-16 16:05] VITALS: BP 103/58
[2019-09-16 16:46] VITALS: BP 107/60
[2019-09-16] MEDS: PREGABALIN 50 MG CAPSULE PO SCH (17:10)
[2019-09-16] MEDS: QUEtiapine FUMARATE 200 MG TABLET PO SCH (20:50)
[2019-09-17 00:43] VITALS: BP 107/60
[2019-09-17] MEDS: DIAZEPAM 5 MG TABLET PO PRN ×2 (07:01→12:57)
[2019-09-17 08:48] VITALS: BP 128/75
[2019-09-17 09:00] VITALS: BP 128/73
[2019-09-17] MEDS: VENLAFAXINE HCL 75 MG ER CAPSULE PO SCH (09:35)
[2019-09-17] MEDS: ACAMPROSATE CALCIUM 333 MG DR TABLET PO SCH ×3 (09:35→17:16)
[2019-09-17] MEDS: MULTIVITAMINS WITH MINERALS, THERAPEUTIC TABLET PO SCH (09:35)
[2019-09-17] MEDS: THIAMINE HCL 100 MG TABLET PO SCH ×2 (09:35→17:16)
[2019-09-17] MEDS: PREGABALIN 50 MG CAPSULE PO SCH ×3 (09:35→17:16)
[2019-09-17] MEDS: FOLIC ACID 1 MG TABLET PO SCH (09:35)
[2019-09-17] MEDS: METHADONE HCL 10 MG TABLET PO SCH (09:36)
[2019-09-17 16:46] VITALS: BP 107/60
[2019-09-17] MEDS: QUEtiapine FUMARATE 200 MG TABLET PO SCH (20:01)
[2019-09-18 04:50] VITALS: BP 130/88
[2019-09-18] MEDS: DIAZEPAM 5 MG TABLET PO PRN (04:56)
[2019-09-18 05:38] VITALS: BP 130/88
[2019-09-18] MEDS: MULTIVITAMINS WITH MINERALS, THERAPEUTIC TABLET PO SCH (08:17)
[2019-09-18] MEDS: THIAMINE HCL 100 MG TABLET PO SCH ×2 (08:17→17:31)
[2019-09-18] MEDS: ACAMPROSATE CALCIUM 333 MG DR TABLET PO SCH ×3 (08:17→17:31)
[2019-09-18] MEDS: PREGABALIN 50 MG CAPSULE PO SCH ×3 (08:17→17:31)
[2019-09-18] MEDS: FOLIC ACID 1 MG TABLET PO SCH (08:17)
[2019-09-18] MEDS: VENLAFAXINE HCL 75 MG ER CAPSULE PO SCH (08:17)
[2019-09-18] MEDS: METHADONE HCL 10 MG TABLET PO SCH (08:17)
[2019-09-18 09:00] VITALS: BP 116/80
[2019-09-18] MEDS: NICOTINE 21 MG/24 HOUR PATCH TD PRN (10:31)
[2019-09-18] MEDS: LORazepam 2 MG TABLET PO PRN ×2 (12:15→17:32)
[2019-09-18 16:34] VITALS: BP 121/65
[2019-09-18] MEDS: QUEtiapine FUMARATE 200 MG TABLET PO SCH (20:39)
[2019-09-18] MEDS: ZOLPIDEM TARTRATE 10 MG TABLET PO PRN (20:39)
[2019-09-19 05:29] VITALS: BP 133/65
[2019-09-19] MEDS: LORazepam 2 MG TABLET PO PRN ×2 (06:20→09:11)
[2019-09-19 06:21] VITALS: BP 128/74
[2019-09-19] MEDS: MULTIVITAMINS WITH MINERALS, THERAPEUTIC TABLET PO SCH (08:34)
[2019-09-19] MEDS: ACAMPROSATE CALCIUM 333 MG DR TABLET PO SCH ×2 (08:34→12:35)
[2019-09-19] MEDS: VENLAFAXINE HCL 75 MG ER CAPSULE PO SCH (08:34)
[2019-09-19] MEDS: PREGABALIN 50 MG CAPSULE PO SCH ×2 (08:34→12:35)
[2019-09-19] MEDS: THIAMINE HCL 100 MG TABLET PO SCH (08:34)
[2019-09-19] MEDS: FOLIC ACID 1 MG TABLET PO SCH (08:35)
[2019-09-19] MEDS: METHADONE HCL 10 MG TABLET PO SCH (08:36)
[2019-09-19 08:45] VITALS: BP 155/74
[2019-09-19] MEDS: NICOTINE 21 MG/24 HOUR PATCH TD PRN (12:37)
[2019-09-19] MEDS ORDERED: VENL75CA55 PO (13:50)
[2019-09-19] MEDS ORDERED: QUET200T29 PO (13:50)
[2019-09-19] MEDS ORDERED: ACAM333T7 PO (13:50)
[2019-09-19] MEDS ORDERED: PREG50 PO (13:50)
== END 2019-09-19 15:00 | disposition home or self-care (01) | DRG 750 ==
LOC: EMS 10:41 → B3A 18:06 → B2S 09-16 14:08 → B3A 09-18 16:04
PROVIDERS: ADMIT Psychiatry & Neurology Psychiatry; ATTEND Psychiatry & Neurology Psychiatry
DX: F25.1 Schizoaffective disorder, depressive type (principal); F11.20 Opioid dependence, uncomplicated; R45.851 Suicidal ideations; B18.2 Chronic viral hepatitis C; D64.9 Anemia, unspecified; F12.20 Cannabis dependence, uncomplicated; B19.20 Unspecified viral hepatitis C without hepatic coma; G47.00 Insomnia, unspecified; Z59.0 Homelessness; Z79.899 Other long term (current) drug therapy; Z87.891 Personal history of nicotine dependence; Z91.14 Patient's other noncompliance with medication regimen; Z28.21 Immunization not carried out because of patient refusal
CPT/HCPCS: 76881; 83036; 84439; 84443; 87081; 93971; G0480; J1200; J1630; J2060; J3420; J7050

== ENCOUNTER 2020-12-12 20:21 | Inpatient (IN) | payer MEDICAID ==
[~2020-12-12] VITALS: Ht 182.9 cm; Wt 97.7 kg
[~2020-12-12 20:21] MED LIST changes: +ACAM333T7 PO; -GABA-531 PO; +PREG50 PO; -QUET200T PO; +QUET200T29 PO; -QUET300T2 PO; -VENL-67 PO; +VENL75CA55 PO
[2020-12-12 21:22] LABS: BASOPHILS % (AUTO) 0.6 % (0.0-2.0); EOSINOPHILS % (AUTO) 1.7 % (1.0-6.0); HEMATOCRIT 42.2 % (41-53); HEMOGLOBIN 14.5 g/dL (13.5-17.5); LYMPHOCYTES # (AUTO) 2.5 K/uL (1.0-4.8); LYMPHOCYTES % (AUTO) 31.7 % (22.0-44.0); MEAN CORPUSCULAR HEMOGLOBIN 32.4 pg (26.0-34.0); MEAN CORPUSCULAR HGB CONC 34.4 G/dL (31.0-37.0); MEAN CORPUSCULAR VOLUME 94 fL (80-100); MONOCYTES # (AUTO) 0.7 K/uL (0.1-1.0); MONOCYTES % (AUTO) 8.6 % (2.0-9.0); NEUTROPHILS # (AUTO) 4.5 K/uL (1.8-7.7); NEUTROPHILS % (AUTO) 57.4 % (40.0-70.0); PLATELET COUNT (AUTO) 239 K/uL (150-450); RED BLOOD CELL COUNT(AUTO) 4.48 MIL/uL (4.50-5.90); RED CELL DISTRIBUTION WIDTH 12.9 % (11.5-14.5)
[2020-12-12 21:30] LABS: ANION GAP 9 mmol/L (8-16); CALCIUM, TOTAL 9.1 mg/dL (8.8-10.5); CARBON DIOXIDE 29 mmol/L (22-29); CHLORIDE 101 mmol/L (98-107); CREATININE 1.19 mg/dL (0.60-1.30); GLOMERULAR FILTR. RATE CALC > 60 mL/min (>60); GLUCOSE,RANDOM 92 mg/dL (70-110); POTASSIUM 3.9 mmol/L (3.5-5.1); SODIUM SERUM 139 mmol/L (136-145); UREA NITROGEN, BLOOD 30 mg/dL (7-18)
[2020-12-12 21:37] LABS: ALANINE AMINOTRANSFERASE 26 U/L (12-78); ALBUMIN 4.5 g/dL (3.4-5.0); ALKALINE PHOSPHATASE 97 U/L (46-116); ASPARTATE AMINOTRANSFERASE 33 U/L (15-37); BILIRUBIN,TOTAL 0.4 mg/dL (0.1-1.0); TOTAL PROTEIN, SERUM 7.8 g/dL (6.4-8.2)
[2020-12-12 21:45] LABS: AMPHET/METH SCREEN,URINE POSITIVE (NEGATIVE); BARBITURATE SCREEN, URINE NEGATIVE (NEGATIVE); BENZODIAZEPINES SCREEN,URINE POSITIVE (NEGATIVE); CANNABINOID SCREEN,URINE POSITIVE (NEGATIVE); COCAINE SCREEN,URINE NEGATIVE (NEGATIVE); METHADONE SCREEN, URINE NEGATIVE (NEGATIVE); OPIATE SCREEN,URINE POSITIVE (NEGATIVE)
[2020-12-12 21:57] LABS: COVID AG,FIA SOURCE NASOPHARYNGEAL
[2020-12-12 22:17] LABS: PHENCYCLIDINE SCREEN,URINE NEGATIVE (NEGATIVE)
[2020-12-12] MEDS ORDERED: ZOLPIDEM TARTRATE 10 MG TABLET PO PRN (22:30)
[2020-12-12 23:07] LABS: APPEARANCE,URINE TURBID (CLEAR); BILIRUBIN,URINE NEGATIVE (NEGATIVE); GLUCOSE, URINE (UA) NEGATIVE (NEGATIVE); KETONES,URINE TRACE mg/dL (NEGATIVE); LEUKOCYTE ESTERASE ,URINE NEGATIVE (NEGATIVE); NITRATE,URINE NEGATIVE (NEGATIVE); OCCULT BLOOD,URINE NEGATIVE (NEGATIVE); PH,URINE 5.5 (5.0-8.0); PROTEIN,URINE NEGATIVE (NEGATIVE); UROBILINOGEN,URINE 0.2 mg/dL (<=1.0)
[2020-12-12] MEDS: LORazepam 2 MG TABLET PO PRN (23:16)
[2020-12-13 03:22] VITALS: BP 140/99
[2020-12-13] MEDS ORDERED: PNEUMOCOCCAL VACCINE POLYVALENT 0.5 ML VIAL [PPSV23] IM. ONE (03:45)
[2020-12-13 05:13] VITALS: BP 135/75
[2020-12-13] MEDS: LORazepam 2 MG TABLET PO PRN ×3 (05:18→19:21)
[2020-12-13 06:28] LABS: CHOL/HDL RATIO 2.5 (4.2-7.3)
[2020-12-13] MEDS ORDERED: IBUPROFEN 600 MG TABLET PO PRN (09:45)
[2020-12-13] MEDS ORDERED: MAGNESIUM HYDROXIDE SUSPENSION 30 ML UDCUP PO PRN (09:45)
[2020-12-13] MEDS ORDERED: OMEPRAZOLE 20 MG CAPSULE PO PRN (09:45)
[2020-12-13] MEDS ORDERED: PETROLATUM,WHITE 28 GM JELLY TP PRN (09:45)
[2020-12-13] MEDS ORDERED: ALBUTEROL SULFATE HFA 90 MCG/PUFF 8 GM INHALER IH PRN (09:45)
[2020-12-13] MEDS ORDERED: BENZOCAINE/MENTHOL LOZENGE PO PRN (09:45)
[2020-12-13] MEDS ORDERED: CloNIDine HCL 0.1 MG TABLET PO PRN (09:45)
[2020-12-13] MEDS ORDERED: ACETAMINOPHEN 325 MG TABLET PO PRN (09:45)
[2020-12-13] MEDS ORDERED: LOPERAMIDE HCL 2 MG CAPSULE PO PRN (09:45)
[2020-12-13] MEDS ORDERED: BACITRACIN 28 GM OINTMENT TP PRN (09:45)
[2020-12-13] MEDS ORDERED: DOCUSATE SODIUM 100 MG CAPSULE PO PRN (09:45)
[2020-12-13] MEDS ORDERED: MAG HYDROX/AL HYDROX/SIMETH ES 30 ML SUSPENSION UDCUP PO PRN (09:45)
[2020-12-13] MEDS ORDERED: ONDANSETRON HCL 4 MG TABLET PO PRN (09:45)
[2020-12-13] MEDS: HALOPERIDOL 5 MG TABLET PO PRN (11:03)
[2020-12-13 16:49] VITALS: BP 136/72
[2020-12-14] MEDS: LORazepam 2 MG TABLET PO PRN ×2 (06:13→10:18)
[2020-12-14] MEDS: HALOPERIDOL 5 MG TABLET PO PRN (07:59)
[2020-12-14 09:13] VITALS: BP 122/75
[2020-12-14] MEDS ORDERED: BUPR-93 PO (11:57)
[2020-12-14] MEDS ORDERED: BUSP5TAB20 PO (11:58)
[2020-12-14] MEDS ORDERED: GABA-1181 PO (12:00)
[2020-12-14] MEDS ORDERED: QUET300T2 PO (12:00)
[2020-12-14] MEDS ORDERED: GABAPENTIN 300 MG CAPSULE PO SCH (13:00)
[2020-12-14] MEDS ORDERED: BusPIRone HCL 5 MG TABLET PO SCH (17:00)
[2020-12-14] MEDS ORDERED: QUEtiapine FUMARATE 300 MG TABLET PO SCH (21:00)
[2020-12-15] MEDS ORDERED: BuPROPion HCL XL 150 MG ER TABLET PO SCH (09:00)
== END 2020-12-14 14:55 | disposition home or self-care (01) | DRG 750 ==
LOC: EMS 20:24 → 3EI 23:30
PROVIDERS: ADMIT Psychiatry & Neurology Psychiatry; ATTEND Psychiatry & Neurology Psychiatry
DX: F20.9 Schizophrenia, unspecified (principal); R45.851 Suicidal ideations; F11.90 Opioid use, unspecified, uncomplicated; F17.210 Nicotine dependence, cigarettes, uncomplicated; K59.00 Constipation, unspecified; G47.00 Insomnia, unspecified; F41.9 Anxiety disorder, unspecified; F12.90 Cannabis use, unspecified, uncomplicated; F15.10 Other stimulant abuse, uncomplicated; Z20.822 Contact with and (suspected) exposure to COVID-19; Z88.1 Allergy status to other antibiotic agents
CPT/HCPCS: 80053; 80061; 81003; 85025; 87426; 99285; G0480

== ENCOUNTER 2021-06-16 16:01 | Inpatient (IN) | payer MEDICAID ==
[~2021-06-16] VITALS: Ht 182.9 cm; Wt 96.6 kg
[~2021-06-16 16:01] MED LIST changes: -ACAM333T7 PO; +BUPR-93 PO; +BUSP5TAB20 PO; +GABA-1181 PO; -PREG50 PO; -QUET200T29 PO; +QUET300T2 PO; -VENL75CA55 PO
[2021-06-16] MEDS ORDERED: HALOPERIDOL 5 MG TABLET PO PRN (17:00)
[2021-06-16] MEDS ORDERED: ZOLPIDEM TARTRATE 10 MG TABLET PO PRN (17:00)
[2021-06-16 17:12] LABS: GLUCOMETER DEV NAME(LOC) POC.BV
[2021-06-16] MEDS ORDERED: INFLUENZA VIRUS VACCINE QVS 2021-22 (6MO+)/PF 60 MCG/0.5 ML SYRINGE IM. ONE (17:30)
[2021-06-16] MEDS: LORazepam 2 MG TABLET PO PRN (17:35)
[2021-06-16 17:43] VITALS: BP 120/78
[2021-06-17] MEDS: LORazepam 2 MG TABLET PO PRN ×4 (01:28→14:33)
[2021-06-17 04:52] VITALS: BP 129/83
[2021-06-17 06:54] LABS: BASOPHILS % (AUTO) 0.9 % (0.0-2.0); EOSINOPHILS % (AUTO) 1.6 % (1.0-6.0); HEMATOCRIT 41.8 % (41-53); LYMPHOCYTES # (AUTO) 2.1 K/uL (1.0-4.8); MEAN CORPUSCULAR HEMOGLOBIN 32.9 pg (26.0-34.0); MEAN CORPUSCULAR HGB CONC 33.6 G/dL (31.0-37.0); MEAN CORPUSCULAR VOLUME 98 fL (80-100); MONOCYTES # (AUTO) 0.5 K/uL (0.1-1.0); NEUTROPHILS # (AUTO) 2.8 K/uL (1.8-7.7); NEUTROPHILS % (AUTO) 50.5 % (40.0-70.0); PLATELET COUNT (AUTO) 236 K/uL (150-450); RED BLOOD CELL COUNT(AUTO) 4.26 MIL/uL (4.50-5.90); RED CELL DISTRIBUTION WIDTH 13.9 % (11.5-14.5)
[2021-06-17 07:05] LABS: HEMOGLOBIN A1C 5.4 % (3.8-5.6)
[2021-06-17 07:17] LABS: ALANINE AMINOTRANSFERASE 23 U/L (12-78); ALBUMIN 3.6 g/dL (3.4-5.0); ALKALINE PHOSPHATASE 75 U/L (46-116); ANION GAP 2 mmol/L (8-16); ASPARTATE AMINOTRANSFERASE 15 U/L (15-37); BILIRUBIN,TOTAL 0.2 mg/dL (0.1-1.0); CALCIUM, TOTAL 9.1 mg/dL (8.8-10.5); CARBON DIOXIDE 33 mmol/L (22-29); CHLORIDE 109 mmol/L (98-107); CHOL/HDL RATIO 3.5 (4.2-7.3); CHOLESTEROL 170 mg/dL (131-200); CREATININE 0.86 mg/dL (0.60-1.30); FREE T4 (FREE THYROXINE) 0.85 ng/dL (0.76-1.46); GLOMERULAR FILTR. RATE CALC > 60 mL/min (>60); GLUCOSE,RANDOM 98 mg/dL (70-110); HDL CHOLESTEROL 49 mg/dL (40-60); LDL CHOL (CALC.) 100 mg/dL (0-130); SODIUM SERUM 144 mmol/L (136-145); TOTAL PROTEIN, SERUM 6.7 g/dL (6.4-8.2); TRIGLYCERIDES 106 mg/dL (15-150); UREA NITROGEN, BLOOD 20 mg/dL (7-18)
[2021-06-17] MEDS ORDERED: OMEPRAZOLE 20 MG CAPSULE PO PRN (08:00)
[2021-06-17] MEDS ORDERED: CloNIDine HCL 0.1 MG TABLET PO PRN (08:00)
[2021-06-17] MEDS ORDERED: BENZOCAINE/MENTHOL LOZENGE PO PRN (08:00)
[2021-06-17] MEDS ORDERED: DOCUSATE SODIUM 100 MG CAPSULE PO PRN (08:00)
[2021-06-17] MEDS ORDERED: LOPERAMIDE HCL 2 MG CAPSULE PO PRN (08:00)
[2021-06-17] MEDS ORDERED: PETROLATUM,WHITE 28 GM JELLY TP PRN (08:00)
[2021-06-17] MEDS ORDERED: MAGNESIUM HYDROXIDE SUSPENSION 30 ML UDCUP PO PRN (08:00)
[2021-06-17] MEDS ORDERED: MAG HYDROX/AL HYDROX/SIMETH ES 30 ML SUSPENSION UDCUP PO PRN (08:00)
[2021-06-17] MEDS ORDERED: BACITRACIN 28 GM OINTMENT TP PRN (08:00)
[2021-06-17] MEDS ORDERED: ALBUTEROL SULFATE HFA 90 MCG/PUFF 8 GM INHALER IH PRN (08:00)
[2021-06-17] MEDS ORDERED: ONDANSETRON HCL 4 MG TABLET PO PRN (08:00)
[2021-06-17] MEDS ORDERED: IBUPROFEN 600 MG TABLET PO PRN (08:00)
[2021-06-17] MEDS ORDERED: ACETAMINOPHEN 325 MG TABLET PO PRN (08:00)
[2021-06-17 09:09] VITALS: BP 118/68
[2021-06-17] MEDS: FLUoxetine HCL 20 MG CAPSULE PO SCH (14:23)
[2021-06-17] MEDS: NICOTINE POLACRILEX 2 MG LOZENGE PO PRN (14:23)
[2021-06-17] MEDS: GABAPENTIN 300 MG CAPSULE PO SCH (17:19)
[2021-06-17] MEDS: QUEtiapine FUMARATE 300 MG TABLET PO SCH (20:51)
[2021-06-18] MEDS: LORazepam 2 MG TABLET PO PRN ×4 (06:58→20:24)
[2021-06-18] MEDS: FLUoxetine HCL 20 MG CAPSULE PO SCH (08:39)
[2021-06-18] MEDS: GABAPENTIN 300 MG CAPSULE PO SCH ×3 (08:39→16:07)
[2021-06-18] MEDS: NICOTINE POLACRILEX 2 MG LOZENGE PO PRN ×2 (12:42→19:15)
[2021-06-18 16:14] VITALS: BP 104/68
[2021-06-18] MEDS: QUEtiapine FUMARATE 300 MG TABLET PO SCH (20:24)
[2021-06-19 00:37] VITALS: BP 108/64
[2021-06-19] MEDS: LORazepam 2 MG TABLET PO PRN ×4 (06:59→20:27)
[2021-06-19 08:18] VITALS: BP 125/80
[2021-06-19] MEDS: FLUoxetine HCL 20 MG CAPSULE PO SCH (09:11)
[2021-06-19] MEDS: GABAPENTIN 300 MG CAPSULE PO SCH ×3 (09:11→16:18)
[2021-06-19] MEDS: NICOTINE POLACRILEX 2 MG LOZENGE PO PRN ×2 (09:17→16:14)
[2021-06-19] MEDS ORDERED: QUEtiapine FUMARATE 100 MG TABLET PO PRN (12:30)
[2021-06-19] MEDS ORDERED: GuaiFENesin/D-METHORPHAN [SUGAR-FREE] 200-20MG/10 ML SYRUP UDCUP PO PRN (12:30)
[2021-06-19] MEDS ORDERED: HydrOXYzine PAMOATE 50 MG CAPSULE PO PRN (12:30)
[2021-06-19] MEDS: ACAMPROSATE CALCIUM 333 MG DR TABLET PO SCH ×2 (12:41→16:17)
[2021-06-19] MEDS ORDERED: BUPRENORPHINE HCL/NALOXONE HCL 8-2 MG SUBLINGUAL TABLET SL ONE (13:30)
[2021-06-19] MEDS ORDERED: PALIPERIDONE PALMITATE 234 MG/1.5 ML SYRINGE IM ONE (14:00)
[2021-06-19] MEDS: THIAMINE 100 MG TABLET PO SCH (16:18)
[2021-06-19 16:50] VITALS: BP 122/79
[2021-06-19] MEDS: QUEtiapine FUMARATE 100 MG TABLET PO SCH (20:27)
[2021-06-20] MEDS: LORazepam 2 MG TABLET PO PRN ×4 (06:13→18:28)
[2021-06-20 08:21] VITALS: BP 123/75
[2021-06-20] MEDS: ACAMPROSATE CALCIUM 333 MG DR TABLET PO SCH ×3 (08:37→16:39)
[2021-06-20] MEDS: THIAMINE 100 MG TABLET PO SCH ×2 (08:38→16:13)
[2021-06-20] MEDS: BuPROPion HCL XL 150 MG ER TABLET PO SCH (08:38)
[2021-06-20] MEDS: GABAPENTIN 300 MG CAPSULE PO SCH ×3 (08:38→16:13)
[2021-06-20] MEDS: FOLIC ACID 1 MG TABLET PO SCH (08:38)
[2021-06-20] MEDS: BUPRENORPHINE HCL/NALOXONE HCL 8-2 MG SUBLINGUAL TABLET SL SCH (08:38)
[2021-06-20] MEDS: MULTIVITAMINS WITH MINERALS, THERAPEUTIC TABLET PO SCH (08:38)
[2021-06-20] MEDS: NICOTINE POLACRILEX 2 MG LOZENGE PO PRN ×2 (10:13→16:13)
[2021-06-20 16:17] VITALS: BP 145/92
[2021-06-20] MEDS: QUEtiapine FUMARATE 100 MG TABLET PO SCH (20:24)
[2021-06-21] MEDS: LORazepam 2 MG TABLET PO PRN ×4 (06:29→18:47)
[2021-06-21 08:16] VITALS: BP 100/60
[2021-06-21] MEDS: THIAMINE 100 MG TABLET PO SCH ×2 (08:47→16:36)
[2021-06-21] MEDS: MULTIVITAMINS WITH MINERALS, THERAPEUTIC TABLET PO SCH (08:47)
[2021-06-21] MEDS: BuPROPion HCL XL 150 MG ER TABLET PO SCH (08:47)
[2021-06-21] MEDS: FOLIC ACID 1 MG TABLET PO SCH (08:47)
[2021-06-21] MEDS: ACAMPROSATE CALCIUM 333 MG DR TABLET PO SCH ×3 (08:47→16:36)
[2021-06-21] MEDS: GABAPENTIN 300 MG CAPSULE PO SCH ×3 (08:47→16:36)
[2021-06-21] MEDS: BUPRENORPHINE HCL/NALOXONE HCL 8-2 MG SUBLINGUAL TABLET SL SCH (08:48)
[2021-06-21] MEDS: NICOTINE POLACRILEX 2 MG LOZENGE PO PRN (09:45)
[2021-06-21 16:31] VITALS: BP 124/86
[2021-06-21] MEDS ORDERED: DiphenhydrAMINE HCL 50 MG/ML VIAL ONE (19:32)
[2021-06-21] MEDS ORDERED: ChlorproMAZINE HCL 50 MG/2 ML AMP IM ONE (19:45)
[2021-06-21] MEDS ORDERED: DiphenhydrAMINE HCL 50 MG/ML VIAL IM ONE (19:45)
[2021-06-21] MEDS ORDERED: QUEtiapine FUMARATE 200 MG TABLET PO SCH (21:00)
[2021-06-22] MEDS: LORazepam 2 MG TABLET PO PRN ×2 (06:28→10:27)
[2021-06-22 06:37] VITALS: BP 120/62
[2021-06-22 08:38] VITALS: BP 102/68
[2021-06-22] MEDS: NICOTINE POLACRILEX 2 MG LOZENGE PO PRN (08:48)
[2021-06-22] MEDS: BUPRENORPHINE HCL/NALOXONE HCL 8-2 MG SUBLINGUAL TABLET SL SCH (08:49)
[2021-06-22] MEDS: MULTIVITAMINS WITH MINERALS, THERAPEUTIC TABLET PO SCH (08:49)
[2021-06-22] MEDS: GABAPENTIN 300 MG CAPSULE PO SCH ×2 (08:50→12:04)
[2021-06-22] MEDS: BuPROPion HCL XL 150 MG ER TABLET PO SCH (08:50)
[2021-06-22] MEDS: ACAMPROSATE CALCIUM 333 MG DR TABLET PO SCH ×3 (08:50→17:40)
[2021-06-22] MEDS: FOLIC ACID 1 MG TABLET PO SCH (08:50)
[2021-06-22] MEDS: THIAMINE 100 MG TABLET PO SCH ×2 (08:50→17:40)
[2021-06-22] MEDS ORDERED: GABAPENTIN 300 MG CAPSULE PO ONE (14:45)
[2021-06-22] MEDS ORDERED: HydrOXYzine PAMOATE 50 MG CAPSULE PO ONE (14:45)
[2021-06-22] MEDS ORDERED: QUEtiapine FUMARATE 300 MG TABLET PO ONE (14:45)
[2021-06-22 16:16] VITALS: BP 131/80
[2021-06-22] MEDS ORDERED: GABAPENTIN 300 MG CAPSULE PO SCH (17:00)
[2021-06-22] MEDS ORDERED: LORazepam 1 MG TABLET PO PRN (17:00)
[2021-06-22] MEDS ORDERED: HydrOXYzine PAMOATE 50 MG CAPSULE PO SCH ×2 (17:00→21:00)
[2021-06-22] MEDS ORDERED: QUET300T2 PO (17:48)
[2021-06-22] MEDS ORDERED: ACAM333T7 PO (17:49)
[2021-06-22] MEDS ORDERED: GABA-1201 PO (17:50)
[2021-06-22] MEDS ORDERED: HYDR50CA9 PO (17:51)
[2021-06-22] MEDS ORDERED: BUPR1FIL3 SL (17:53)
[2021-06-23] MEDS ORDERED: PALIPERIDONE PALMITATE 156 MG/ML SYRINGE IM ONE (09:00)
[2021-06-23] MEDS ORDERED: QUEtiapine FUMARATE 200 MG TABLET PO SCH (09:00)
== END 2021-06-22 18:20 | disposition home or self-care (01) | DRG 750 ==
LOC: B3A 17:10 → B2S 06-22 16:59
PROVIDERS: ADMIT Psychiatry & Neurology Psychiatry; ATTEND Psychiatry & Neurology Psychiatry
DX: F25.0 Schizoaffective disorder, bipolar type (principal); R45.851 Suicidal ideations; Z91.14 Patient's other noncompliance with medication regimen; F10.10 Alcohol abuse, uncomplicated; F11.20 Opioid dependence, uncomplicated; F12.90 Cannabis use, unspecified, uncomplicated; F41.9 Anxiety disorder, unspecified; F60.0 Paranoid personality disorder; G47.00 Insomnia, unspecified; J44.9 Chronic obstructive pulmonary disease, unspecified; Z20.822 Contact with and (suspected) exposure to COVID-19; K59.00 Constipation, unspecified; Z65.3 Problems related to other legal circumstances; Z79.899 Other long term (current) drug therapy; Z91.19 Patient's noncompliance with other medical treatment and regimen; Z88.8 Allergy status to other drugs, medicaments and biological substances
CPT/HCPCS: 80053; 80061; 83036; 84439; 84443; 85025; J1200; J3230; Q9967

== ENCOUNTER 2021-06-24 10:59 | Emergency (ER) | payer MEDICAID, OTHER ==
[~2021-06-24] VITALS: Ht 177.8 cm; Wt 86.4 kg
[~2021-06-24 10:59] MED LIST changes: +ACAM333T7 PO; -BUPR-93 PO; +BUPR1FIL3 SL; -BUSP5TAB20 PO; -GABA-1181 PO; +GABA-1201 PO; +HYDR50CA9 PO
[2021-06-24 11:43] LABS: BASOPHILS % (AUTO) 0.6 % (0.0-2.0); EOSINOPHILS % (AUTO) 0.8 % (1.0-6.0); HEMATOCRIT 44.4 % (41-53); HEMOGLOBIN 15.1 g/dL (13.5-17.5); LYMPHOCYTES # (AUTO) 3.2 K/uL (1.0-4.8); LYMPHOCYTES % (AUTO) 28.8 % (22.0-44.0); MEAN CORPUSCULAR HEMOGLOBIN 32.6 pg (26.0-34.0); MEAN CORPUSCULAR HGB CONC 34.1 G/dL (31.0-37.0); MEAN CORPUSCULAR VOLUME 96 fL (80-100); MONOCYTES # (AUTO) 1.1 K/uL (0.1-1.0); MONOCYTES % (AUTO) 9.4 % (2.0-9.0); NEUTROPHILS # (AUTO) 6.8 K/uL (1.8-7.7); NEUTROPHILS % (AUTO) 60.4 % (40.0-70.0); PLATELET COUNT (AUTO) 239 K/uL (150-450); RED BLOOD CELL COUNT(AUTO) 4.64 MIL/uL (4.50-5.90); RED CELL DISTRIBUTION WIDTH 13.2 % (11.5-14.5)
[2021-06-24 12:26] LABS: ALANINE AMINOTRANSFERASE 32 U/L (12-78); ALBUMIN 4.7 g/dL (3.4-5.0); ALKALINE PHOSPHATASE 100 U/L (46-116); ANION GAP 12 mmol/L (8-16); ASPARTATE AMINOTRANSFERASE 27 U/L (15-37); BILIRUBIN,TOTAL 0.5 mg/dL (0.1-1.0); CALCIUM, TOTAL 9.5 mg/dL (8.8-10.5); CARBON DIOXIDE 29 mmol/L (22-29); CHLORIDE 105 mmol/L (98-107); CREATININE 1.13 mg/dL (0.60-1.30); GLOMERULAR FILTR. RATE CALC > 60 mL/min (>60); GLUCOSE,RANDOM 74 mg/dL (70-110); POTASSIUM 3.5 mmol/L (3.5-5.1); SODIUM SERUM 146 mmol/L (136-145); TOTAL PROTEIN, SERUM 8.3 g/dL (6.4-8.2); UREA NITROGEN, BLOOD 30 mg/dL (7-18)
[2021-06-24 13:24] LABS: AMPHET/METH SCREEN,URINE POSITIVE (NEGATIVE); BARBITURATE SCREEN, URINE NEGATIVE (NEGATIVE); BENZODIAZEPINES SCREEN,URINE NEGATIVE (NEGATIVE); CANNABINOID SCREEN,URINE POSITIVE (NEGATIVE); COCAINE SCREEN,URINE NEGATIVE (NEGATIVE); METHADONE SCREEN, URINE NEGATIVE (NEGATIVE); OPIATE SCREEN,URINE NEGATIVE (NEGATIVE)
[2021-06-24 13:25] LABS: PHENCYCLIDINE SCREEN,URINE NEGATIVE (NEGATIVE)
[2021-06-24] MEDS ORDERED: ChlordiazePOXIDE HCL 25 MG CAPSULE PO ONE (13:30)
[2021-06-24] MEDS ORDERED: DIAZEPAM 5 MG TABLET PO ONE (16:15)
[2021-06-24 16:35] VITALS: BP 146/54
== END 2021-06-24 16:43 | disposition home or self-care (01) ==
LOC: EMS 10:59
DX: R45.851 Suicidal ideations (principal); F11.10 Opioid abuse, uncomplicated; F10.20 Alcohol dependence, uncomplicated; F31.9 Bipolar disorder, unspecified; F15.90 Other stimulant use, unspecified, uncomplicated; F17.210 Nicotine dependence, cigarettes, uncomplicated; Z88.1 Allergy status to other antibiotic agents; Z79.899 Other long term (current) drug therapy; Y90.0 Blood alcohol level of less than 20 mg/100 ml
CPT/HCPCS: 36415; 80053; 80307; 85025; 99284; G0480

== ENCOUNTER 2021-09-27 15:22 | Inpatient (IN) | payer MEDICAID, OTHER ==
[~2021-09-27] VITALS: Ht 188 cm; Wt 92.5 kg
[~2021-09-27 15:22] MED LIST changes: +HYDR50CA7 PO; -HYDR50CA9 PO
[2021-09-27 15:57] LABS: BASOPHILS % (AUTO) 0.8 % (0.0-2.0); EOSINOPHILS % (AUTO) 1.7 % (1.0-6.0); HEMATOCRIT 41.4 % (41-53); LYMPHOCYTES # (AUTO) 2.4 K/uL (1.0-4.8); MEAN CORPUSCULAR HEMOGLOBIN 31.9 pg (26.0-34.0); MEAN CORPUSCULAR HGB CONC 33.8 G/dL (31.0-37.0); MEAN CORPUSCULAR VOLUME 94 fL (80-100); MONOCYTES # (AUTO) 0.6 K/uL (0.1-1.0); MONOCYTES % (AUTO) 9.5 % (2.0-9.0); NEUTROPHILS # (AUTO) 3.6 K/uL (1.8-7.7); PLATELET COUNT (AUTO) 326 K/uL (150-450); RED BLOOD CELL COUNT(AUTO) 4.38 MIL/uL (4.50-5.90); RED CELL DISTRIBUTION WIDTH 13.3 % (11.5-14.5)
[2021-09-27 16:04] LABS: COVID AG,FIA SOURCE NASOPHARYNGEAL
[2021-09-27 16:07] LABS: ANION GAP 8 mmol/L (8-16); CARBON DIOXIDE 29 mmol/L (22-29); CHLORIDE 102 mmol/L (98-107); CREATININE 1.17 mg/dL (0.60-1.30); GLOMERULAR FILTR. RATE CALC > 60 mL/min (>60); GLUCOSE,RANDOM 104 mg/dL (70-110); SODIUM SERUM 139 mmol/L (136-145); UREA NITROGEN, BLOOD 34 mg/dL (7-18)
[2021-09-27 16:12] LABS: ALANINE AMINOTRANSFERASE 36 U/L (12-78); ALBUMIN 3.9 g/dL (3.4-5.0); ALKALINE PHOSPHATASE 112 U/L (46-116); ASPARTATE AMINOTRANSFERASE 25 U/L (15-37); BILIRUBIN,TOTAL 0.4 mg/dL (0.1-1.0); TOTAL PROTEIN, SERUM 7.4 g/dL (6.4-8.2)
[2021-09-27 16:22] LABS: AMPHET/METH SCREEN,URINE POSITIVE (NEGATIVE); BARBITURATE SCREEN, URINE NEGATIVE (NEGATIVE); BENZODIAZEPINES SCREEN,URINE POSITIVE (NEGATIVE); CANNABINOID SCREEN,URINE POSITIVE (NEGATIVE); COCAINE SCREEN,URINE NEGATIVE (NEGATIVE); METHADONE SCREEN, URINE NEGATIVE (NEGATIVE); OPIATE SCREEN,URINE NEGATIVE (NEGATIVE)
[2021-09-27 16:23] LABS: PHENCYCLIDINE SCREEN,URINE NEGATIVE (NEGATIVE)
[2021-09-27] MEDS ORDERED: ZOLPIDEM TARTRATE 10 MG TABLET PO PRN (18:00)
[2021-09-27] MEDS ORDERED: HALOPERIDOL 5 MG TABLET PO PRN (18:00)
[2021-09-27] MEDS ORDERED: LORazepam 2 MG TABLET PO PRN (18:00)
[2021-09-27 22:10] VITALS: BP 128/79
[2021-09-27] MEDS ORDERED: IBUPROFEN 400 MG TABLET PO PRN (22:15)
[2021-09-27] MEDS ORDERED: MAGNESIUM HYDROXIDE SUSPENSION 30 ML UDCUP PO PRN (22:15)
[2021-09-27] MEDS ORDERED: LOPERAMIDE HCL 2 MG CAPSULE PO PRN (22:15)
[2021-09-27] MEDS ORDERED: CloNIDine HCL 0.1 MG TABLET PO PRN (22:15)
[2021-09-27] MEDS ORDERED: HydrOXYzine PAMOATE 50 MG CAPSULE PO PRN (22:15)
[2021-09-27] MEDS ORDERED: ALBUTEROL SULFATE HFA 90 MCG/PUFF 8 GM INHALER IH PRN (22:15)
[2021-09-27] MEDS ORDERED: MAG HYDROX/AL HYDROX/SIMETH ES 30 ML SUSPENSION UDCUP PO PRN (22:15)
[2021-09-27] MEDS ORDERED: ACETAMINOPHEN 325 MG TABLET PO PRN (22:15)
[2021-09-27] MEDS ORDERED: DOCUSATE SODIUM 100 MG CAPSULE PO PRN (22:15)
[2021-09-27] MEDS ORDERED: NICOTINE POLACRILEX 2 MG LOZENGE PO PRN (22:15)
[2021-09-27] MEDS ORDERED: GuaiFENesin/D-METHORPHAN [SUGAR-FREE] 200-20MG/10 ML SYRUP UDCUP PO PRN (22:15)
[2021-09-27] MEDS ORDERED: PETROLATUM,WHITE 28 GM JELLY TP PRN (22:15)
[2021-09-27] MEDS ORDERED: ONDANSETRON HCL 4 MG TABLET PO PRN (22:15)
[2021-09-27 22:28] VITALS: BP 128/79
[2021-09-27 23:15] VITALS: BP 100/61
[2021-09-27 23:17] VITALS: BP 100/61
[2021-09-28 00:15] VITALS: BP 110/60
[2021-09-28 00:21] VITALS: BP 110/60
[2021-09-28 01:32] VITALS: BP 118/60
[2021-09-28] MEDS ORDERED: INFLUENZA VIRUS VACCINE QVS 2021-22 (6MO+)/PF 60 MCG/0.5 ML SYRINGE IM. ONE (03:15)
[2021-09-28 05:31] VITALS: BP 110/62
[2021-09-28 08:24] VITALS: BP 133/58
[2021-09-28] MEDS ORDERED: NICOTINE 14 MG/24 HOUR PATCH TD SCH (09:00)
== END 2021-09-28 10:15 | disposition left against medical advice (07) | DRG 750 ==
LOC: EMS 15:25 → B2S 17:50
PROVIDERS: ADMIT Psychiatry & Neurology Psychiatry; ATTEND Psychiatry & Neurology Psychiatry
DX: F25.1 Schizoaffective disorder, depressive type (principal); R45.851 Suicidal ideations; Z59.00 Homelessness unspecified; F31.9 Bipolar disorder, unspecified; F15.10 Other stimulant abuse, uncomplicated; F11.10 Opioid abuse, uncomplicated; F10.229 Alcohol dependence with intoxication, unspecified; B19.20 Unspecified viral hepatitis C without hepatic coma; Z20.822 Contact with and (suspected) exposure to COVID-19; F12.10 Cannabis abuse, uncomplicated; Y90.0 Blood alcohol level of less than 20 mg/100 ml; Z53.29 Procedure and treatment not carried out because of patient's decision for other reasons; Z91.51 Personal history of suicidal behavior; Z81.8 Family history of other mental and behavioral disorders; Z87.891 Personal history of nicotine dependence; Z88.1 Allergy status to other antibiotic agents; Z28.21 Immunization not carried out because of patient refusal
CPT/HCPCS: 80053; 85025; 99285; G0480